=== PATIENT | male | born 1990 | race American Indian/Alaskan Native ===

== ENCOUNTER 2018-11-09 23:53 | Inpatient (IN) | payer MEDICAID ==
--- NOTE | 2018-11-10 01:58 | ED PDOC ---
HPI: Back Chief Complaint (Provider): Flank Pain, Bilateral History Per: Patient, EMS History/Exam Limitations: no limitations Onset/Duration Of Symptoms: Days, Waxing/Waning Current Symptoms Are (Timing): Still Present Quality Of Discomfort: Pressure (This type 2 diabetic patient presents to the ED via EMS this evening complaining of bilateral flank pain, without nausea or vomiting. Pt was seen at [facility] yesterday for the same symptoms and diagnostically had a CT Abdomen and Pelvis without contrast which indicated only that there is "mild puffiness to his renal collection system." The patient was discharged following a clean UA. The patient indicated that his pain level was low earlier today, and then increased later in the evening. The patient continues to denie NVD and fever as well as urinary symptoms including gross hematuria. ), "Pain" <Paul Childers - Last Filed: 11/10/18 05:18> <Pérez Chanel - Last Filed: 11/10/18 06:21> Time Seen by Provider: 11/10/18 00:00 Chief Complaint (Nursing): Back Pain Past Medical History Reviewed: Historical Data, Nursing Documentation, Vital Signs Vital Signs: Last Vital Signs Temp 97.3 F L 11/09/18 23:56 Pulse 93 H 11/09/18 23:56 Resp 18 11/09/18 23:56 BP 131/91 H 11/09/18 23:56 Pulse Ox 100 11/09/18 23:56 - Medical History PMH: Arthritis (KNEE, ANKLE), Diabetes (Type 1), Fractures (R shoulder 2015), HTN Denies: Chronic Kidney Disease - Family History Family History: States: Diabetes (Grandmother on Fathers side) - Immunization History Hx Tetanus Toxoid Vaccination: No Hx Influenza Vaccination: No Hx Pneumococcal Vaccination: No <Paul Childers - Last Filed: 11/10/18 05:18> Vital Signs: Last Vital Signs Temp 97.3 F L 11/09/18 23:56 Pulse 93 H 11/09/18 23:56 Resp 18 11/09/18 23:56 BP 131/91 H 11/09/18 23:56 Pulse Ox 100 11/10/18 02:03 <Pérez Chanel - Last Filed: 11/10/18 06:21> - Home Medications Home Medications: Ambulatory Orders Medication Instructions Recorded Blood Sugar Diagnostic [Accu-Chek 1 each MC DAILY #100 strip 05/26/18 Guide Test Strip] Insulin Aspart, Recombinant 8 unit SQ WM 05/31/18 [Novolog] Acetaminophen [Tylenol 325mg tab] 650 mg PO Q6 PRN tab 09/21/18 Aluminum Hydroxide/Magnesium H 30 ml PO TID PRN udc 09/21/18 [Maalox 30 ml] Dextrose 50% [Dextrose 50% Inj] 0 ml IV STAT PRN syr 09/21/18 Enoxaparin [Lovenox] 40 mg SC DAILY syr 09/21/18 Insulin Glargine, Recombina 30 unit SC HS unit 09/21/18 [Lantus] Insulin Human Regular [Novolin R] 0 unit SC ACHS unit 09/21/18 Ketorolac [Toradol] 30 mg IVP Q6 PRN vial 09/21/18 Lisinopril [Zestril] 40 mg PO DAILY tab 09/21/18 Metoprolol Tartrate [Lopressor] 50 mg PO BID tab 09/21/18 Pantoprazole [Protonix EC Tab] 40 mg PO DAILY ect 09/21/18 Saccharomyces Boulardi [Florastor] 250 mg PO BID cap 09/21/18 Vancomycin [Vancomycin Inj] 1 gm IVPB Q24H vial 09/21/18 amLODIPine [Norvasc] 10 mg PO DAILY tab 09/21/18 cloNIDine [Catapres] 0.1 mg PO BID tab 09/21/18 Ibuprofen [Motrin] 600 mg PO Q6 PRN #20 tab 11/08/18 - Allergies Allergies/Adverse Reactions: Allergies Allergy/AdvReac Type Severity Reaction Status Date / Time pollen extracts Allergy Intermediate ITCHING Verified 09/10/18 08:05 Review of Systems ROS Statement: Except As Marked, All Systems Reviewed And Found Negative Musculoskeletal: Positive for: Back Pain <Paul Childers - Last Filed: 11/10/18 05:18> Physical Exam - Reviewed Nursing Documentation Reviewed: Yes Vital Signs Reviewed: Yes - Physical Exam Appears: Positive for: Well, Non-toxic, Uncomfortable. Negative for: No Acute Distress Head Exam: Positive for: ATRAUMATIC, NORMAL INSPECTION Skin: Positive for: Normal Color, Warm, Dry. Negative for: Diaphoresis, Pallor, Rash Eye Exam: Positive for: Normal appearance. Negative for: Periorbital swelling, Periorbital tenderness Neck: Positive for: Normal, Supple Cardiovascular/Chest: Positive for: Regular Rate, Rhythm, Chest Non Tender. Negative for: Bradycardia, Tachycardia Respiratory: Positive for: Normal Breath Sounds. Negative for: Accessory Muscle Use, Crackles, Rales, Rhonchi, Stridor, Wheezing, Respiratory Distress Pulses-Carotid (L): 2+ Pulses-Carotid (R): 2+ Pulses-Radial (L): 2+ Pulses-Radial (R): 2+ Gastrointestinal/Abdominal: Positive for: Normal Exam, Bowel Sounds, Soft. Negative for: Tenderness, Distended, Guarding, Rebound Back: Positive for: Normal Inspection, L CVA Tenderness, R CVA Tenderness. Negative for: Vertebral Tenderness, Muscle Spasm <Paul Childers - Last Filed: 11/10/18 05:18> - Laboratory Results Result Diagrams: 11/10/18 04:20 11/10/18 04:20 - ECG O2 Sat by Pulse Oximetry: 100 <Paul Childers - Last Filed: 11/10/18 05:18> - Laboratory Results Result Diagrams: 11/10/18 04:20 11/10/18 04:20 Lab Results: Total Bilirubin 0.2 mg/dl (0.2-1.3) 11/10/18 04:20 AST 27 U/L (17-59) 11/10/18 04:20 ALT 26 U/L (21-72) 11/10/18 04:20 Alkaline Phosphatase 78 U/L (38-126) 11/10/18 04:20 Total Protein 6.8 G/DL (6.3-8.2) 11/10/18 04:20 Albumin 2.7 g/dL (3.5-5.0) L 11/10/18 04:20 Globulin 4.1 gm/dL (2.2-3.9) H 11/10/18 04:20 Albumin/Globulin Ratio 0.7 (1.0-2.1) L 11/10/18 04:20 Lipase 38 U/L (23-300) 11/10/18 04:20 Urine Color Yellow (YELLOW) 11/10/18 02:04 Urine Clarity Cloudy (Clear) 11/10/18 02:04 Urine pH 6.0 (5.0-8.0) 11/10/18 02:04 Ur Specific [place] 1.018 (1.003-1.030) 11/10/18 02:04 Urine Protein >=500 mg/dL (NEGATIVE) 11/10/18 02:04 Urine Glucose (UA) >=500 mg/dL (NEGATIVE) 11/10/18 02:04 Urine Ketones Negative mg/dL (NEGATIVE) 11/10/18 02:04 Urine Blood Small (NEGATIVE) 11/10/18 02:04 Urine Nitrate Negative (NEGATIVE) 11/10/18 02:04 Urine Bilirubin Negative (NEGATIVE) 11/10/18 02:04 Urine Urobilinogen 0.2-1.0 mg/dL (0.2-1.0) 11/10/18 02:04 Ur Leukocyte Esterase Neg [place]/uL (Negative) 11/10/18 02:04 Urine RBC (Auto) 15 /hpf (0-3) H 11/10/18 02:04 Urine Microscopic WBC 3 /hpf (0-5) 11/10/18 02:04 Ur Squamous Epith Cells 1 /hpf (0-5) 11/10/18 02:04 Hyaline Casts >20 /hpf (0-2) H 11/10/18 02:04 <Pérez Chanel - Last Filed: 11/10/18 06:21> Medical Decision Making Medical Decision Making: I: R/O Renal lithio passage vx UTI P:Control pain with toradol and apap UA to evaluate hematuria CBC and CMP Elevated creatinine, D1M and CT indicating acending UT infection. 0520: care will be continued by Dr Alfonso <Paul Childers - Last Filed: 11/10/18 05:18> Medical Decision Makin CT Abdomen Pelvis FINDINGS: The visualized lung bases are unremarkable. Normal unenhanced liver. Normal gallbladder and extrahepatic biliary system. Normal unenhanced spleen. Normal pancreas. Normal bilateral adrenal glands. Mild fullness of the collecting systems. Normal size of the right kidney. There is no right renal mass. There are no right renal calculi. There is no right hydronephrosis. Normal visualized right ureter. Normal size of the left kidney. There is no left renal mass. There are no left renal calculi. There is no left hydronephrosis. Normal visualized left ureter. Normal visualized stomach. Normal small intestine. Uncomplicated diverticulosis with moderate amount of fecal residue in the colon. The appendix is visualized and appears normal. There is no demonstrated peritoneal fluid. Normal abdominal aorta. Normal inferior vena cava. Normal retroperitoneum. Mild diffuse thickening of the urinary bladder. There is no pelvic mass lesion or lymphadenopathy. There is no pelvic fluid. Normal abdominal wall. Normal osseous structures. IMPRESSION: Thickened bladder, probably cystitis. Bilateral fullness of the collecting systems, suspicious for an ascending urinary tract infection. No urolithiasis is seen. 06:08 PAtient is a poorly controlled diabetic and homeless with limited access to followup. CT and physical exam concerning for pyelonephritis, patient has potential to become septic if untreated/lost to followup/does not fill prescription Discussed patient case with Dr. Wahl. Patient will be admitted under his care. <Pérez Chanel - Last Filed: 11/10/18 06:21> Disposition <Paul Childers - Last Filed: 11/10/18 05:18> - Patient ED Disposition Is Patient to be Admitted: Yes Discussed With DrAlaina: Aden Wahl Doctor Will See Patient In The: Hospital Counseled Patient/Family Regarding: Studies Performed, Diagnosis - Disposition Disposition Time: 06:08 <Pérez Chanel - Last Filed: 11/10/18 06:21> - Clinical Impression Clinical Impression: Pyelonephritis - Disposition Condition: FAIR
[2018-11-10] MEDS ORDERED: Insulin Regular 100 units/ml SC STA (02:06)
[2018-11-10 02:31] LABS: SQUAMOUS EPITHIAL 1 /hpf (0-5); URINE BILIRUBIN NEGATIVE (NEGATIVE); URINE BLOOD SMALL (NEGATIVE); URINE CLARITY CLOUDY (Clear); URINE COLOR YELLOW (YELLOW); URINE GLUCOSE (UA) >=500 mg/dL (NEGATIVE); URINE LEUKOCYTE ESTERASE NEG Leu/uL (Negative); URINE PROTEIN >=500 mg/dL (NEGATIVE); URINE UROBILINOGEN 0.2-1.0 mg/dL (0.2-1.0)
[2018-11-10 02:38] LABS: URINE HYALINE CAST >20 /hpf (0-2)
[2018-11-10 04:41] LABS: BASO # 0.1 K/uL (0.0-0.2); BASO % 0.9 % (0.0-2.0); EOS # 0.2 K/uL (0.0-0.7); EOS % 3.3 % (0.0-4.0); HEMOGLOBIN 9.1 g/dL (12.0-18.0); LYMPH # 1.2 K/uL (1.0-4.3); LYMPH % 22.6 % (20.0-40.0); MEAN CELL VOLUME 83.9 fl (80.0-94.0); MEAN CORPUSCULAR HEMOGLOBIN 27.6 pg (27.0-31.0); MEAN CORPUSCULAR HGB CONC 32.9 g/dL (33.0-37.0); MONO # 0.7 K/uL (0.0-0.8); MONO % 12.3 % (0.0-10.0); NEUT # 3.3 K/uL (1.8-7.0); NEUT % 60.9 % (50.0-75.0); RBC 3.29 Mil/uL (4.40-5.90); RED CELL DISTRIBUTION WIDTH 15.8 % (11.5-14.5); WHITE BLOOD COUNT 5.4 K/uL (4.8-10.8)
[2018-11-10 04:46] LABS: ALB/GLOB RATIO 0.7 (1.0-2.1); ALBUMIN 2.7 g/dL (3.5-5.0); CALCIUM 8.3 mg/dL (8.4-10.2)
[2018-11-10] MEDS ORDERED: levoFLOXacin 750 mg in D5W 150 ML BAG IVPB STA (05:17)
[2018-11-10] MEDS ORDERED: Sodium Chloride 0.9% 1,000 ML IV STA ×2 (05:17→05:30)
[2018-11-10] MEDS ORDERED: levoFLOXacin 750 mg in D5W 750 MG/150 ML BAG IVPB STA (05:24)
[2018-11-10] MEDS ORDERED: levoFLOXacin 750 mg in D5W 750 MG/150 ML BAG IVPB ONE (05:41)
[2018-11-10 06:01] LABS: VENOUS BLOOD GAS BASE EXCESS -1.3 mmol/L (0.0-2.0); VENOUS BLOOD GAS PCO2 46 mmHg (40-60); VENOUS BLOOD GAS PO2 46 mm/Hg (30-55); VENOUS BLOOD PH 7.34 (7.32-7.43)
[2018-11-10] MEDS ORDERED: Metoprolol 1 mg/ml Inj IVP STA (06:47)
--- NOTE | 2018-11-10 09:49 | CP.PCM.HP ---
History of Present Illness - History of Present Illness History of Present Illness: 28 YR OLD MALE WITH HX OF DM,HTN,ARTHRITIS,CHARCOT R FOOT AND L FLANK PAIN WHO IS ADMITTED VIA THE ER BECAUSE OF SEVERE L FLANK PAIN AND UNCONTROLLED HTN.HE WAS AT [facility],TREATED AND D/ALEX,ONLY TO RETURN TO [facility]. FAMILY HX-GRANDPARENTS WERE DIABETIC AND HYPERTENSIVE SOC [id number]-RYN-[id number]/ETOH/DRUGS HOMELESS Present on Admission - Present on Admission Any Indicators Present on Admission: No Past Patient History - Infectious Disease Hx of Infectious Diseases: None - Tetanus Immunizations Tetanus Immunization: Unknown - Past Medical History & Family History Past Medical History?: Yes - Past Social History Smoking Status: Light Smoker < 10 Cigarettes Daily - CARDIAC Hx Hypertension: Yes - PULMONARY Hx Respiratory Disorders: No - NEUROLOGICAL Hx Neurological Disorder: No - HEENT Hx HEENT Problems: No - RENAL Hx Chronic Kidney Disease: No - ENDOCRINE/METABOLIC Hx Endocrine Disorders: Yes (SEE COMMENT) - HEMATOLOGICAL/ONCOLOGICAL Hx Blood Disorders: No - INTEGUMENTARY Hx Dermatological Problems: Yes Other/Comment: LEFT LEG - OSTEOMYLITIS - MUSCULOSKELETAL/RHEUMATOLOGICAL Hx Arthritis: Yes (KNEE, ANKLE) Hx Fractures: Yes (R shoulder 2014) - GASTROINTESTINAL Hx Gastrointestinal Disorders: No - GENITOURINARY/GYNECOLOGICAL Hx Genitourinary Disorders: No - PSYCHIATRIC Hx Psychophysiologic Disorder: Yes Hx Substance Use: Yes (marijuana user , smokes marijuana on weekends) - SURGICAL HISTORY Other/Comment: Left foot surgery with graft. L foot debridement - ANESTHESIA Hx Anesthesia: Yes Hx Anesthesia Reactions: No Hx Malignant Hyperthermia: No Meds Allergies/Adverse Reactions: Allergies Allergy/AdvReac Type Severity Reaction Status Date / Time pollen extracts Allergy Intermediate ITCHING Verified 09/10/18 08:05 Physical Exam - Constitutional Appears: Well, In Acute Distress, Chronically Ill - Head Exam Head Exam: ATRAUMATIC, NORMAL INSPECTION, NORMOCEPHALIC - Eye Exam Eye Exam: EOMI, Normal appearance, PERRL Pupil Exam: NORMAL ACCOMODATION, PERRL - ENT Exam ENT Exam: Mucous Membranes Moist, Normal Exam - Neck Exam Neck exam: Positive for: Normal Inspection - Respiratory Exam Respiratory Exam: Clear to Auscultation Bilateral, NORMAL BREATHING PATTERN - Cardiovascular Exam Cardiovascular Exam: REGULAR RHYTHM - GI/Abdominal Exam GI & Abdominal Exam: Normal Bowel Sounds, Soft, Tenderness Additional comments: BILATERAL FLANKS - Rectal Exam Rectal Exam: NORMAL INSPECTION - Extremities Exam Extremities exam: Positive for: normal inspection, tenderness Additional comments: R FOOT WITH ULCER ARTHRITIUS CHANGES OPF FINGERS - Back Exam Back exam: NORMAL INSPECTION - Neurological Exam Neurological exam: Alert, CN II-XII Intact, Normal Gait, Oriented x3, Reflexes Normal - Psychiatric Exam Psychiatric exam: Normal Affect, Normal Mood - Skin Skin Exam: Dry, Intact, Normal Color, Warm Results - Vital Signs Recent Vital Signs: Last Vital Signs Temp 97 F L 11/10/18 08:17 Pulse 89 11/10/18 08:17 Resp 18 11/10/18 08:17 BP 166/89 H 11/10/18 08:17 Pulse Ox 100 11/10/18 08:17 - Labs Result Diagrams: 11/10/18 04:20 11/10/18 04:20 Labs: Laboratory Results - last 24 hr 11/10/18 11/10/18 11/10/18 02:02 02:04 03:07 WBC RBC Hgb Hct MCV MCH MCHC RDW Plt Count MPV Neut % (Auto) Lymph % (Auto) [place] % (Auto) Eos % (Auto) Baso % (Auto) Neut # (Auto) Lymph # (Auto) [place] # (Auto) Eos # (Auto) Baso # (Auto) pO2 VBG pH VBG pCO2 VBG HCO3 VBG Total CO2 VBG O2 Sat (Calc) VBG Base Excess VBG Potassium Glucose Lactate FiO2 Sodium Potassium Chloride Carbon Dioxide Anion Gap BUN Creatinine Est GFR ( Amer) Est GFR (Non-Af Amer) POC Glucose (mg/dL) 250 H 139 H Random Glucose Calcium Total Bilirubin AST ALT Alkaline Phosphatase Total Protein Albumin Globulin Albumin/Globulin Ratio Lipase Venous Blood Potassium Urine Color Yellow Urine Clarity Cloudy Urine pH 6.0 Ur Specific [place] 1.018 Urine Protein >=500 Urine Glucose (UA) >=500 Urine Ketones Negative Urine Blood Small Urine Nitrate Negative Urine Bilirubin Negative Urine Urobilinogen 0.2-1.0 Ur Leukocyte Esterase Neg Urine RBC (Auto) 15 H Urine Microscopic WBC 3 Ur Squamous Epith Cells 1 Hyaline Casts >20 H 11/10/18 11/10/18 11/10/18 04:20 04:20 05:50 WBC 5.4 RBC 3.29 L Hgb 9.1 L Hct 27.6 L MCV 83.9 MCH 27.6 MCHC 32.9 L RDW 15.8 H Plt Count 181 MPV 8.0 Neut % (Auto) 60.9 Lymph % (Auto) 22.6 [place] % (Auto) 12.3 H Eos % (Auto) 3.3 Baso % (Auto) 0.9 Neut # (Auto) 3.3 Lymph # (Auto) 1.2 [place] # (Auto) 0.7 Eos # (Auto) 0.2 Baso # (Auto) 0.1 pO2 46 VBG pH 7.34 VBG pCO2 46 VBG HCO3 23.4 VBG Total CO2 26.2 VBG O2 Sat (Calc) 88.8 H VBG Base Excess -1.3 L VBG Potassium 3.6 Glucose 115 H Lactate 0.7 FiO2 21.0 Sodium 140 138.0 Potassium 3.8 Chloride 109 H 109.0 H Carbon Dioxide 23 Anion Gap 12 BUN 31 H Creatinine 3.4 H Est GFR ( Amer) 26 Est GFR (Non-Af Amer) 22 POC Glucose (mg/dL) Random Glucose 104 Calcium 8.3 L Total Bilirubin 0.2 AST 27 ALT 26 Alkaline Phosphatase 78 Total Protein 6.8 Albumin 2.7 L Globulin 4.1 H Albumin/Globulin Ratio 0.7 L Lipase 38 Venous Blood Potassium 3.6 Urine Color Urine Clarity Urine pH Ur Specific [place] Urine Protein Urine Glucose (UA) Urine Ketones Urine Blood Urine Nitrate Urine Bilirubin Urine Urobilinogen Ur Leukocyte Esterase Urine RBC (Auto) Urine Microscopic WBC Ur Squamous Epith Cells Hyaline Casts 11/10/18 08:14 WBC RBC Hgb Hct MCV MCH MCHC RDW Plt Count MPV Neut % (Auto) Lymph % (Auto) [place] % (Auto) Eos % (Auto) Baso % (Auto) Neut # (Auto) Lymph # (Auto) [place] # (Auto) Eos # (Auto) Baso # (Auto) pO2 VBG pH VBG pCO2 VBG HCO3 VBG Total CO2 VBG O2 Sat (Calc) VBG Base Excess VBG Potassium Glucose Lactate FiO2 Sodium Potassium Chloride Carbon Dioxide Anion Gap BUN Creatinine Est GFR ( Amer) Est GFR (Non-Af Amer) POC Glucose (mg/dL) 144 H Random Glucose Calcium Total Bilirubin AST ALT Alkaline Phosphatase Total Protein Albumin Globulin Albumin/Globulin Ratio Lipase Venous Blood Potassium Urine Color Urine Clarity Urine pH Ur Specific [place] Urine Protein Urine Glucose (UA) Urine Ketones Urine Blood Urine Nitrate Urine Bilirubin Urine Urobilinogen Ur Leukocyte Esterase Urine RBC (Auto) Urine Microscopic WBC Ur Squamous Epith Cells Hyaline Casts Assessment & Plan - Assessment and Plan (Free Text) Assessment: ACUTE PYELONEPHRITIS ACUTE KIDNEY INJURY UNCONTROLLED HTN DM TYPE 2 ARTHRITIS DIABETIC FOOT ULCER CHARANNI BULL Plan: SEE ORDERS - Date & Time Date: 11/10/18 Time: 09:53
[2018-11-10] MEDS: levoFLOXacin 500 mg in D5W 500 MG/100 ML BAG IVPB SCH (10:00)
[2018-11-10] MEDS ORDERED: Enoxaparin 30 mg Syringe SC SCH (10:00)
[2018-11-10 10:46] LABS: BASO % 0.8 % (0.0-2.0); EOS # 0.3 K/uL (0.0-0.7); EOS % 5.4 % (0.0-4.0); HEMOGLOBIN 8.5 g/dL (12.0-18.0); LYMPH # 1.3 K/uL (1.0-4.3); LYMPH % 27.2 % (20.0-40.0); MEAN CELL VOLUME 82.7 fl (80.0-94.0); MEAN CORPUSCULAR HEMOGLOBIN 27.9 pg (27.0-31.0); MEAN CORPUSCULAR HGB CONC 33.8 g/dL (33.0-37.0); MEAN PLATELET VOLUME 7.9 fl (7.2-11.7); MONO # 0.8 K/uL (0.0-0.8); MONO % 16.9 % (0.0-10.0); NEUT # 2.3 K/uL (1.8-7.0); NEUT % 49.7 % (50.0-75.0); NRBC % 0.2 % (0.0-0.0); RBC 3.06 Mil/uL (4.40-5.90); RED CELL DISTRIBUTION WIDTH 15.8 % (11.5-14.5); WHITE BLOOD COUNT 4.6 K/uL (4.8-10.8)
--- NOTE | 2018-11-10 11:40 | CT ---
Date of service: 11/10/2018 PROCEDURE: CT Abdomen and Pelvis without intravenous contrast HISTORY: r/o stones and/or hydro COMPARISON: None. TECHNIQUE: Unenhanced. Neither IV nor oral contrast administered Radiation dose: Total exam DLP = inf_radiation_dlp mGy-cm. This CT exam was performed using one or more of the following dose reduction techniques: Automated exposure control, adjustment of the mA and/or kV according to patient size, and/or use of iterative reconstruction technique. FINDINGS: LOWER THORAX: Unremarkable. LIVER: Unremarkable. No gross lesion or ductal dilatation. GALLBLADDER AND BILE DUCTS: Unremarkable. PANCREAS: Unremarkable. No gross lesion or ductal dilatation. SPLEEN: Unremarkable. ADRENALS: Unremarkable. No mass. KIDNEYS AND URETERS: Unremarkable. No hydronephrosis. No solid mass. No evidence of calculus disease, hydronephrosis or hydroureter. VASCULATURE: Unremarkable. No aortic aneurysm. No atherosclerotic calcification or mural plaque present. BOWEL: Constipation without fecal impaction or obstruction. APPENDIX: Unremarkable. Normal appendix. PERITONEUM: Unremarkable. No free fluid. No free air. LYMPH NODES: Unremarkable. No enlarged lymph nodes. BLADDER: Diffuse bladder wall thickening consistent with cystitis. No focal mural or intrinsic abnormalities. REPRODUCTIVE: Unremarkable. BONES: No acute fracture. OTHER FINDINGS: None. IMPRESSION: Mild-moderate cystitis. Otherwise unremarkable study. Concordant results (preliminary interpretation) provided by [employer]. Procedure Completed: 04:20. Preliminary Report: Interpreted and electronically signed: 05:00. Final Interpretation: 11:36.
[2018-11-10 12:27] VITALS: BMI 21.7
--- NOTE | 2018-11-10 12:47 | CP.PCM.CON ---
History of Present Illness - History of Present Illness History of Present Illness: 28 y/o male with Hx/o IDDM. HTN ,CKD was admitted because of Lt flank pain. Renal consult is requested because of worsening of his renal function. Serum creat. is now 3.4 from baseline of 2.0. Pt denied fever ,chills or dysuria. A CT scan of abdomen was done which did not renal calculi or other abnormality. Past Patient History - Infectious Disease Hx of Infectious Diseases: None - Tetanus Immunizations Tetanus Immunization: Unknown - Past Medical History & Family History Past Medical History?: Yes - Past Social History Smoking Status: Light Smoker < 10 Cigarettes Daily - CARDIAC Hx Hypertension: Yes - PULMONARY Hx Respiratory Disorders: No - NEUROLOGICAL Hx Neurological Disorder: No - HEENT Hx HEENT Problems: No - RENAL Hx Chronic Kidney Disease: Yes - ENDOCRINE/METABOLIC Hx Endocrine Disorders: Yes (SEE COMMENT) - HEMATOLOGICAL/ONCOLOGICAL Hx Blood Disorders: No - INTEGUMENTARY Hx Dermatological Problems: Yes Other/Comment: LEFT LEG - OSTEOMYLITIS - MUSCULOSKELETAL/RHEUMATOLOGICAL Hx Arthritis: Yes (KNEE, ANKLE) Hx Fractures: Yes (R shoulder 2014) - GASTROINTESTINAL Hx Gastrointestinal Disorders: No - GENITOURINARY/GYNECOLOGICAL Hx Genitourinary Disorders: No - PSYCHIATRIC Hx Psychophysiologic Disorder: Yes Hx Substance Use: Yes (marijuana user , smokes marijuana on weekends) - SURGICAL HISTORY Other/Comment: Left foot surgery with graft. L foot debridement - ANESTHESIA Hx Anesthesia: Yes Hx Anesthesia Reactions: No Hx Malignant Hyperthermia: No Meds Allergies/Adverse Reactions: Allergies Allergy/AdvReac Type Severity Reaction Status Date / Time pollen extracts Allergy Intermediate ITCHING Verified 09/10/18 08:05 - Medications Medications: Current Medications Acetaminophen (Tylenol 325mg Tab) 650 mg PO Q4 PRN PRN Reason: Fever >100.4 F Amlodipine Besylate (Norvasc) 10 mg PO DAILY [facility]ATI Clonidine HCl (Catapres) 0.1 mg PO BID TATI Enoxaparin Sodium (Lovenox) 30 mg SC DAILY TATI; Protocol Sodium Chloride (Sodium Chloride 0.45%) 1,000 mls @ 60 mls/hr IV .[id number] TATI Stop: 11/11/18 09:41 Levofloxacin/Dextrose (Levaquin 500mg) 500 mg in 100 mls @ 100 mls/hr IVPB DAILY TATI; Protocol Insulin Detemir (Levemir) 30 units SC HS [facility] Insulin Human Lispro (Humalog) 8 units SC WM [facility] Ketorolac Tromethamine (Toradol) 30 mg IVP Q6 PRN PRN Reason: Pain, moderate (4-7) Lisinopril (Zestril) 40 mg PO DAILY [facility] Metoprolol Tartrate (Lopressor) 50 mg PO BID [facility] Saccharomyces Boulardii (Florastor) 250 mg PO BID [facility] Physical Exam - Constitutional Appears: Non-toxic - Head Exam Head Exam: ATRAUMATIC, NORMOCEPHALIC - Eye Exam Additional comments: Conjunctiva pale ,sclera anicteric - ENT Exam ENT Exam: Mucous Membranes Moist - Neck Exam Additional comments: No jugular venous distension - Respiratory Exam Respiratory Exam: NORMAL BREATHING PATTERN Additional comments: Lungs clear - Cardiovascular Exam Cardiovascular Exam: Diastolic murmur, REGULAR RHYTHM - GI/Abdominal Exam Additional comments: Abdomen is soft & nontender Tenderness noted over Lt back/ flank area No tenderness on Rt flank - Extremities Exam Additional comments: Lt foot is dressed. No edema or cyanosis. Results - Vital Signs Recent Vital Signs: Last Vital Signs Temp 97 F L 11/10/18 08:17 Pulse 89 11/10/18 08:17 Resp 18 11/10/18 08:17 BP 166/89 H 11/10/18 08:17 Pulse Ox 100 11/10/18 08:17 - Labs Result Diagrams: 11/10/18 10:00 11/10/18 04:20 Labs: Laboratory Results - last 24 hr 11/10/18 11/10/18 11/10/18 02:02 02:04 03:07 WBC RBC Hgb Hct MCV MCH MCHC RDW Plt Count MPV Neut % (Auto) Lymph % (Auto) [place] % (Auto) Eos % (Auto) Baso % (Auto) Neut # (Auto) Lymph # (Auto) [place] # (Auto) Eos # (Auto) Baso # (Auto) pO2 VBG pH VBG pCO2 VBG HCO3 VBG Total CO2 VBG O2 Sat (Calc) VBG Base Excess VBG Potassium Glucose Lactate FiO2 Sodium Potassium Chloride Carbon Dioxide Anion Gap BUN Creatinine Est GFR ( Amer) Est GFR (Non-Af Amer) POC Glucose (mg/dL) 250 H 139 H Random Glucose Calcium Total Bilirubin AST ALT Alkaline Phosphatase Total Protein Albumin Globulin Albumin/Globulin Ratio Lipase Venous Blood Potassium Urine Color Yellow Urine Clarity Cloudy Urine pH 6.0 Ur Specific [place] 1.018 Urine Protein >=500 Urine Glucose (UA) >=500 Urine Ketones Negative Urine Blood Small Urine Nitrate Negative Urine Bilirubin Negative Urine Urobilinogen 0.2-1.0 Ur Leukocyte Esterase Neg Urine RBC (Auto) 15 H Urine Microscopic WBC 3 Ur Squamous Epith Cells 1 Hyaline Casts >20 H 11/10/18 11/10/18 11/10/18 04:20 04:20 05:50 WBC 5.4 RBC 3.29 L Hgb 9.1 L Hct 27.6 L MCV 83.9 MCH 27.6 MCHC 32.9 L RDW 15.8 H Plt Count 181 MPV 8.0 Neut % (Auto) 60.9 Lymph % (Auto) 22.6 [place] % (Auto) 12.3 H Eos % (Auto) 3.3 Baso % (Auto) 0.9 Neut # (Auto) 3.3 Lymph # (Auto) 1.2 [place] # (Auto) 0.7 Eos # (Auto) 0.2 Baso # (Auto) 0.1 pO2 46 VBG pH 7.34 VBG pCO2 46 VBG HCO3 23.4 VBG Total CO2 26.2 VBG O2 Sat (Calc) 88.8 H VBG Base Excess -1.3 L VBG Potassium 3.6 Glucose 115 H Lactate 0.7 FiO2 21.0 Sodium 140 138.0 Potassium 3.8 Chloride 109 H 109.0 H Carbon Dioxide 23 Anion Gap 12 BUN 31 H Creatinine 3.4 H Est GFR ( Amer) 26 Est GFR (Non-Af Amer) 22 POC Glucose (mg/dL) Random Glucose 104 Calcium 8.3 L Total Bilirubin 0.2 AST 27 ALT 26 Alkaline Phosphatase 78 Total Protein 6.8 Albumin 2.7 L Globulin 4.1 H Albumin/Globulin Ratio 0.7 L Lipase 38 Venous Blood Potassium 3.6 Urine Color Urine Clarity Urine pH Ur Specific [place] Urine Protein Urine Glucose (UA) Urine Ketones Urine Blood Urine Nitrate Urine Bilirubin Urine Urobilinogen Ur Leukocyte Esterase Urine RBC (Auto) Urine Microscopic WBC Ur Squamous Epith Cells Hyaline Casts 11/10/18 11/10/18 08:14 10:00 WBC 4.6 L RBC 3.06 L Hgb 8.5 L Hct 25.3 L MCV 82.7 MCH 27.9 MCHC 33.8 RDW 15.8 H Plt Count 179 MPV 7.9 Neut % (Auto) 49.7 L Lymph % (Auto) 27.2 [place] % (Auto) 16.9 H Eos % (Auto) 5.4 H Baso % (Auto) 0.8 Neut # (Auto) 2.3 Lymph # (Auto) 1.3 [place] # (Auto) 0.8 Eos # (Auto) 0.3 Baso # (Auto) 0.0 pO2 VBG pH VBG pCO2 VBG HCO3 VBG Total CO2 VBG O2 Sat (Calc) VBG Base Excess VBG Potassium Glucose Lactate FiO2 Sodium Potassium Chloride Carbon Dioxide Anion Gap BUN Creatinine Est GFR ( Amer) Est GFR (Non-Af Amer) POC Glucose (mg/dL) 144 H Random Glucose Calcium Total Bilirubin AST ALT Alkaline Phosphatase Total Protein Albumin Globulin Albumin/Globulin Ratio Lipase Venous Blood Potassium Urine Color Urine Clarity Urine pH Ur Specific [place] Urine Protein Urine Glucose (UA) Urine Ketones Urine Blood Urine Nitrate Urine Bilirubin Urine Urobilinogen Ur Leukocyte Esterase Urine RBC (Auto) Urine Microscopic WBC Ur Squamous Epith Cells Hyaline Casts Assessment & Plan - Assessment and Plan (Free Text) Assessment: Acute on chronic renal failure. Etiology unclear at this time Noted to have heavy proteinuria on UA. May represent diabetic nephropathy. In the past all serologies were negatine. Lt flank pain. R/o Pyelo. Clinically appears stable ? lumbar muscle spasm Plan: Renal US Urine Protein/ Creat Agree with holding Lisinopril If creat continues to rise adjust Levofloxacin dose for GFR.
[2018-11-10] MEDS: Saccharomyces Boulardi 250 mg Cap PO SCH ×2 (12:48→19:13)
[2018-11-10] MEDS: Insulin Lispro (humaLOG) 100 Units/ml Inj SC SCH ×2 (12:49→19:13)
[2018-11-10] MEDS: Sodium Chloride 0.45% 1,000 ML IV SCH (12:50)
--- NOTE | 2018-11-10 15:07 | CP.PCM.CON ---
History of Present Illness - History of Present Illness History of Present Illness: Podiatry Consult Note: Dr. Freedman 28 year old male patient, with PMHx of DMI, HTN, seen and evaluated for b/l lower extremity ulcerations. Patient reports having the ulcerations for several months and was treated at [facility]. He states that he was transferred to [facility] where he was on 6 weeks of IV antibiotics. He has remained non- weightbearing to the L lower extremity at this time secondary to ulcerations and charcot deformity. He denies any new pedal complaints. Denies nausea/vomiting/fever. PMHx: as above ALL: NKDA Review of Systems - Constitutional Constitutional: As Per HPI Past Patient History - Infectious Disease Hx of Infectious Diseases: None - Tetanus Immunizations Tetanus Immunization: Unknown - Past Medical History & Family History Past Medical History?: Yes - Past Social History Smoking Status: Light Smoker < 10 Cigarettes Daily - CARDIAC Hx Hypertension: Yes - PULMONARY Hx Respiratory Disorders: No - NEUROLOGICAL Hx Neurological Disorder: No - HEENT Hx HEENT Problems: No - RENAL Hx Chronic Kidney Disease: Yes - ENDOCRINE/METABOLIC Hx Endocrine Disorders: Yes (SEE COMMENT) - HEMATOLOGICAL/ONCOLOGICAL Hx Blood Disorders: No - INTEGUMENTARY Hx Dermatological Problems: Yes Other/Comment: LEFT LEG - OSTEOMYLITIS - MUSCULOSKELETAL/RHEUMATOLOGICAL Hx Arthritis: Yes (KNEE, ANKLE) Hx Fractures: Yes ( shoulder 2014) - GASTROINTESTINAL Hx Gastrointestinal Disorders: No - GENITOURINARY/GYNECOLOGICAL Hx Genitourinary Disorders: No - PSYCHIATRIC Hx Psychophysiologic Disorder: Yes Hx Substance Use: Yes (marijuana user , smokes marijuana on weekends) - SURGICAL HISTORY Other/Comment: Left foot surgery with graft. L foot debridement - ANESTHESIA Hx Anesthesia: Yes Hx Anesthesia Reactions: No Hx Malignant Hyperthermia: No Meds Allergies/Adverse Reactions: Allergies Allergy/AdvReac Type Severity Reaction Status Date / Time pollen extracts Allergy Intermediate ITCHING Verified 09/10/18 08:05 - Medications Medications: Current Medications Acetaminophen (Tylenol 325mg Tab) 650 mg PO Q4 PRN PRN Reason: Fever >100.4 F Amlodipine Besylate (Norvasc) 10 mg PO DAILY [facility] Last Admin: 11/10/18 12:50 Dose: 10 mg Clonidine HCl (Catapres) 0.1 mg PO BID [facility] Last Admin: 11/10/18 12:48 Dose: 0.1 mg Enoxaparin Sodium (Lovenox) 30 mg SC DAILY [facility]; Protocol Sodium Chloride (Sodium Chloride 0.45%) 1,000 mls @ 60 mls/hr IV .[id number] [facility] Stop: 11/11/18 09:41 Last Admin: 11/10/18 12:50 Dose: 60 mls/hr Levofloxacin/Dextrose (Levaquin 500mg) 500 mg in 100 mls @ 100 mls/hr IVPB DAILY [facility]; Protocol Insulin Detemir (Levemir) [address] [facility] Insulin Human Lispro (Humalog) [address] [facility] Last Admin: 11/10/18 12:49 Dose: 8 unit Ketorolac Tromethamine (Toradol) 30 mg IVP Q6 PRN PRN Reason: Pain, moderate (4-7) Lisinopril (Zestril) 40 mg PO DAILY [facility] Last Admin: 11/10/18 12:51 Dose: 40 mg Metoprolol Tartrate (Lopressor) 50 mg PO BID [facility] Last Admin: 11/10/18 12:49 Dose: 50 mg Saccharomyces Boulardii (Florastor) 250 mg PO BID [facility] Last Admin: 11/10/18 12:48 Dose: 250 mg Physical Exam - Constitutional Appears: Non-toxic, No Acute Distress - Head Exam Head Exam: ATRAUMATIC - Extremities Exam Additional comments: VASC: DP and PT 2/4, temperature gradient warm to warm to bilateral lower extremity, CFT < 3 seconds, edema noted to the anterior lateral aspect of the left lower extremity ORTHO: MMT is 5/5 in all four compartments, collapsed arch on left secondary to charcot deformity NEURO: gross and protective sensation intact DERM: LLE ulceration appreciated to the 5th metatarsal , approximately 2.0x1.5x.5cm, and lateral malleolus, approximately 2.5x1x.2cm, with mixed fibrous/granular base, mild serous/sanginous drainage appreciated, no purulence expressed at this time. RLE ulceration appreciated to the anterior aspect of the right leg measuring approximately 8cm x3cm x.2 cm, with fibrous base, no drainage at this time, no purulence expressed. Mild erythema appreciated kassandra- wound bilaterally. - Neurological Exam Neurological exam: Alert, Oriented x3 Results - Vital Signs Recent Vital Signs: Last Vital Signs Temp 97 F L 11/10/18 08:17 Pulse 77 11/10/18 12:51 Resp 18 11/10/18 08:17 BP 168/102 H 11/10/18 12:51 Pulse Ox 100 11/10/18 08:17 - Labs Result Diagrams: 11/10/18 10:00 11/10/18 04:20 Labs: Laboratory Results - last 24 hr 11/10/18 11/10/18 11/10/18 02:02 02:04 03:07 WBC RBC Hgb Hct MCV MCH MCHC RDW Plt Count MPV Neut % (Auto) Lymph % (Auto) [place] % (Auto) Eos % (Auto) Baso % (Auto) Neut # (Auto) Lymph # (Auto) [place] # (Auto) Eos # (Auto) Baso # (Auto) pO2 VBG pH VBG pCO2 VBG HCO3 VBG Total CO2 VBG O2 Sat (Calc) VBG Base Excess VBG Potassium Glucose Lactate FiO2 Sodium Potassium Chloride Carbon Dioxide Anion Gap BUN Creatinine Est GFR ( Amer) Est GFR (Non-Af Amer) POC Glucose (mg/dL) 250 H 139 H Random Glucose Calcium Phosphorus Total Bilirubin AST ALT Alkaline Phosphatase Total Protein Albumin Globulin Albumin/Globulin Ratio Lipase Venous Blood Potassium Urine Color Yellow Urine Clarity Cloudy Urine pH 6.0 Ur Specific [place] 1.018 Urine Protein >=500 Urine Glucose (UA) >=500 Urine Ketones Negative Urine Blood Small Urine Nitrate Negative Urine Bilirubin Negative Urine Urobilinogen 0.2-1.0 Ur Leukocyte Esterase Neg Urine RBC (Auto) 15 H Urine Microscopic WBC 3 Ur Squamous Epith Cells 1 Hyaline Casts >20 H 11/10/18 11/10/18 11/10/18 04:20 04:20 05:50 WBC 5.4 RBC 3.29 L Hgb 9.1 L Hct 27.6 L MCV 83.9 MCH 27.6 MCHC 32.9 L RDW 15.8 H Plt Count 181 MPV 8.0 Neut % (Auto) 60.9 Lymph % (Auto) 22.6 [place] % (Auto) 12.3 H Eos % (Auto) 3.3 Baso % (Auto) 0.9 Neut # (Auto) 3.3 Lymph # (Auto) 1.2 [place] # (Auto) 0.7 Eos # (Auto) 0.2 Baso # (Auto) 0.1 pO2 46 VBG pH 7.34 VBG pCO2 46 VBG HCO3 23.4 VBG Total CO2 26.2 VBG O2 Sat (Calc) 88.8 H VBG Base Excess -1.3 L VBG Potassium 3.6 Glucose 115 H Lactate 0.7 FiO2 21.0 Sodium 140 138.0 Potassium 3.8 Chloride 109 H 109.0 H Carbon Dioxide 23 Anion Gap 12 BUN 31 H Creatinine 3.4 H Est GFR ( Amer) 26 Est GFR (Non-Af Amer) 22 POC Glucose (mg/dL) Random Glucose 104 Calcium 8.3 L Phosphorus Total Bilirubin 0.2 AST 27 ALT 26 Alkaline Phosphatase 78 Total Protein 6.8 Albumin 2.7 L Globulin 4.1 H Albumin/Globulin Ratio 0.7 L Lipase 38 Venous Blood Potassium 3.6 Urine Color Urine Clarity Urine pH Ur Specific [place] Urine Protein Urine Glucose (UA) Urine Ketones Urine Blood Urine Nitrate Urine Bilirubin Urine Urobilinogen Ur Leukocyte Esterase Urine RBC (Auto) Urine Microscopic WBC Ur Squamous Epith Cells Hyaline Casts 11/10/18 11/10/18 11/10/18 08:14 10:00 13:06 WBC 4.6 L RBC 3.06 L Hgb 8.5 L Hct 25.3 L MCV 82.7 MCH 27.9 MCHC 33.8 RDW 15.8 H Plt Count 179 MPV 7.9 Neut % (Auto) 49.7 L Lymph % (Auto) 27.2 [place] % (Auto) 16.9 H Eos % (Auto) 5.4 H Baso % (Auto) 0.8 Neut # (Auto) 2.3 Lymph # (Auto) 1.3 [place] # (Auto) 0.8 Eos # (Auto) 0.3 Baso # (Auto) 0.0 pO2 VBG pH VBG pCO2 VBG HCO3 VBG Total CO2 VBG O2 Sat (Calc) VBG Base Excess VBG Potassium Glucose Lactate FiO2 Sodium Potassium Chloride Carbon Dioxide Anion Gap BUN Creatinine Est GFR ( Amer) Est GFR (Non-Af Amer) POC Glucose (mg/dL) 144 H Random Glucose Calcium Phosphorus 4.3 Total Bilirubin AST ALT Alkaline Phosphatase Total Protein Albumin Globulin Albumin/Globulin Ratio Lipase Venous Blood Potassium Urine Color Urine Clarity Urine pH Ur Specific [place] Urine Protein Urine Glucose (UA) Urine Ketones Urine Blood Urine Nitrate Urine Bilirubin Urine Urobilinogen Ur Leukocyte Esterase Urine RBC (Auto) Urine Microscopic WBC Ur Squamous Epith Cells Hyaline Casts 11/10/18 13:07 WBC RBC Hgb Hct MCV MCH MCHC RDW Plt Count MPV Neut % (Auto) Lymph % (Auto) [place] % (Auto) Eos % (Auto) Baso % (Auto) Neut # (Auto) Lymph # (Auto) [place] # (Auto) Eos # (Auto) Baso # (Auto) pO2 VBG pH VBG pCO2 VBG HCO3 VBG Total CO2 VBG O2 Sat (Calc) VBG Base Excess VBG Potassium Glucose Lactate FiO2 Sodium Potassium Chloride Carbon Dioxide Anion Gap BUN Creatinine Est GFR ( Amer) Est GFR (Non-Af Amer) POC Glucose (mg/dL) 292 H Random Glucose Calcium Phosphorus Total Bilirubin AST ALT Alkaline Phosphatase Total Protein Albumin Globulin Albumin/Globulin Ratio Lipase Venous Blood Potassium Urine Color Urine Clarity Urine pH Ur Specific [place] Urine Protein Urine Glucose (UA) Urine Ketones Urine Blood Urine Nitrate Urine Bilirubin Urine Urobilinogen Ur Leukocyte Esterase Urine RBC (Auto) Urine Microscopic WBC Ur Squamous Epith Cells Hyaline Casts Assessment & Plan - Assessment and Plan (Free Text) Assessment: 28 year old male patient, with PMHx of DMI, HTN, with b/l lower extremity wounds. Plan: Patient seen and evaluated Afebrile, WBC 4.6 Wound culture L foot L ankle and foot xrays ordered; pending Local wound care; xeroform, DSD Vasc consulted; reccs appreciated ID consulted; reccs appreciated Silvadene ordered Will continue to follow Thank you for the consult - Date & Time Date: 11/10/18 Time: 15:06
[2018-11-10] MEDS: Enoxaparin 30 mg Syringe SC SCH (19:08)
[2018-11-10] MEDS: Insulin Detemir 100 Units/ml Inj SC SCH (21:54)
[2018-11-11] MEDS: Sodium Chloride 0.45% 1,000 ML IV SCH ×2 (03:36→13:56)
--- NOTE | 2018-11-11 06:47 | CP.PCM.PN ---
Subjective - Date & Time of Evaluation Date of Evaluation: 11/11/18 Time of Evaluation: 06:47 - Subjective Subjective: Podiatry Progress Note: Dr. Freedman 28 year old male patient seen and evaluated at bedside for B/L lower extremity ulcerations with L charcot deformity. Patient resting comfortably and in NAD. He reports multiple episodes of watery diarrhea in the past day. He denies any pain to b/l lower extremities. Denies nausea/vomiting/fever. Objective - Vital Signs/Intake and Output Vital Signs (last 24 hours): Temp Pulse Resp BP Pulse Ox 97.5 F L 76 18 144/95 H 100 11/10/18 23:45 11/11/18 06:41 11/10/18 23:45 11/11/18 06:41 11/10/18 23:45 - Medications Medications: Current Medications Acetaminophen (Tylenol 325mg Tab) 650 mg PO Q4 PRN PRN Reason: Fever >100.4 F Amlodipine Besylate (Norvasc) 10 mg PO DAILY [facility] Last Admin: 11/10/18 12:50 Dose: 10 mg Clonidine HCl (Catapres) 0.2 mg PO TID [facility] Last Admin: 11/11/18 05:50 Dose: 0.2 mg Enoxaparin Sodium (Lovenox) 30 mg SC DAILY@1600 [facility]; Protocol Last Admin: 11/10/18 19:08 Dose: 30 mg Sodium Chloride (Sodium Chloride 0.45%) 1,000 mls @ 60 mls/hr IV .[id number] [facility] Stop: 11/11/18 09:41 Last Admin: 11/11/18 03:36 Dose: Not Given Levofloxacin/Dextrose (Levaquin 500mg) 500 mg in 100 mls @ 100 mls/hr IVPB DAILY [facility]; Protocol Last Admin: 11/10/18 10:00 Dose: Not Given Insulin Detemir (Levemir) 30 units SC HS [facility] Last Admin: 11/10/18 21:54 Dose: 30 units Insulin Human Lispro (Humalog) 8 units SC WM [facility] Last Admin: 11/10/18 19:13 Dose: 8 unit Ketorolac Tromethamine (Toradol) 30 mg IVP Q6 PRN PRN Reason: Pain, moderate (4-7) Lisinopril (Zestril) 40 mg PO DAILY [facility] Last Admin: 11/10/18 12:51 Dose: 40 mg Metoprolol Tartrate (Lopressor) 50 mg PO BID [facility] Last Admin: 11/10/18 23:57 Dose: 50 mg Ondansetron HCl (Zofran Inj) 4 mg IVP Q4 PRN PRN Reason: Nausea/Vomiting Last Admin: 11/10/18 21:54 Dose: 4 mg Saccharomyces Boulardii (Florastor) 250 mg PO BID [facility] Last Admin: 11/10/18 19:13 Dose: 250 mg - Labs Labs: 11/10/18 10:00 11/10/18 04:20 - Constitutional Appears: Non-toxic, No Acute Distress - Head Exam Head Exam: ATRAUMATIC, NORMOCEPHALIC - Extremities Exam Additional comments: VASC: DP and PT 2/4, temperature gradient warm to warm to bilateral lower extremity, CFT < 3 seconds, edema noted to the anterior lateral aspect of the left lower extremity ORTHO: MMT is 5/5 in all four compartments, collapsed arch on left secondary to charcot deformity NEURO: gross and protective sensation intact DERM: LLE ulceration appreciated to the 5th metatarsal , approximately 2.0x1.5x.5cm, and lateral malleolus, approximately 2.5x1x.2cm, with mixed fibrous/granular base, mild serous/sanginous drainage appreciated, no purulence expressed at this time. RLE ulceration appreciated to the anterior aspect of the right leg measuring approximately 8cm x3cm x.2 cm, with fibrous base, no drainage at this time, no purulence expressed. Mild erythema appreciated kassandra- wound bilaterally. - Neurological Exam Neurological Exam: Alert, Awake, Oriented x3 - Psychiatric Exam Psychiatric exam: Normal Affect, Normal Mood Assessment and Plan - Assessment and Plan (Free Text) Assessment: 28 year old male patient, with PMHx of DMI, HTN, with b/l lower extremity wounds secondary to diabetes Plan: Patient seen and evaluated with attending, Dr. Freedman Wound culture L foot; pending L ankle and foot xrays ordered; pending Local wound care; xeroform, DSD Vasc consulted; reccs appreciated ID consulted; reccs appreciated C diff ordered Silvadene ordered Plan for debridement of R leg ulceration next week with possible graft application
[2018-11-11 06:48] LABS: CALCIUM 8.8 mg/dL (8.4-10.2)
[2018-11-11] MEDS: Insulin Lispro (humaLOG) 100 Units/ml Inj SC SCH ×2 (09:38→13:56)
[2018-11-11] MEDS: levoFLOXacin 500 mg in D5W 500 MG/100 ML BAG IVPB SCH (09:41)
[2018-11-11] MEDS: Saccharomyces Boulardi 250 mg Cap PO SCH ×2 (09:44→17:32)
--- NOTE | 2018-11-11 09:48 | US ---
Date of service: 11/11/2018 PROCEDURE: Ultrasound of the Kidneys HISTORY: acute renal failure COMPARISON: None available. TECHNIQUE: Sonogram of the kidneys. FINDINGS: RIGHT KIDNEY: Measures: 4.9 x 6.4 x 10.7 cm. Normal in size, contour and echogenicity. No stone, solid mass lesion or hydronephrosis visualized. Incidental subcentimeter cyst midpole region LEFT KIDNEY: Measures: 5.6 x 6 x 12.2 cm. Normal in size, contour and echogenicity. No stone, solid mass lesion or hydronephrosis visualized. OTHER FINDINGS: None. IMPRESSION: Unremarkable renal sonogram.
--- NOTE | 2018-11-11 11:21 | CP.PCM.CON ---
History of Present Illness - History of Present Illness History of Present Illness: Jus aWgoner, PGY-1, Cardiology Consult Note for Dr. Read 28 year old male with past medical history of hypertension and diabetes presents with 3 days of left flank pain. Patient reports that the pain has gotten worse over time. [place] [facility] [place] with pain medication as no significant findings were found on CT at [place]. Patient was admitted to [facility] as patient's left flank pain has been worsening over the past few days. Patient also reports headache but denies chest pain, shortness of breath, nausea, vom iting, jaw pain, left arm pain, diaphoresis. Patient also reports having bilateral lower extremity ulcers PMH: as stated above PSH: left foot surgery FMHx: no significant cardiac history SHx: marijuana use. denies tobacco and alcohol use Allergies: seasonal PMD: [facility] Review of Systems - Review of Systems Review of Systems: except as mentioned in HPI Past Patient History - Infectious Disease Hx of Infectious Diseases: None - Tetanus Immunizations Tetanus Immunization: Unknown - Past Medical History & Family History Past Medical History?: Yes - Past Social History Smoking Status: Light Smoker < 10 Cigarettes Daily - CARDIAC Hx Hypertension: Yes - PULMONARY Hx Respiratory Disorders: No - NEUROLOGICAL Hx Neurological Disorder: No - HEENT Hx HEENT Problems: No - RENAL Hx Chronic Kidney Disease: Yes - ENDOCRINE/METABOLIC Hx Endocrine Disorders: Yes (SEE COMMENT) - HEMATOLOGICAL/ONCOLOGICAL Hx Blood Disorders: No - INTEGUMENTARY Hx Dermatological Problems: Yes Other/Comment: LEFT LEG - OSTEOMYLITIS - MUSCULOSKELETAL/RHEUMATOLOGICAL Hx Arthritis: Yes (KNEE, ANKLE) Hx Fractures: Yes (2014) - GASTROINTESTINAL Hx Gastrointestinal Disorders: No - GENITOURINARY/GYNECOLOGICAL Hx Genitourinary Disorders: No - PSYCHIATRIC Hx Psychophysiologic Disorder: Yes Hx Substance Use: Yes (marijuana user , smokes marijuana on weekends) - SURGICAL HISTORY Other/Comment: Left foot surgery with graft. L foot debridement - ANESTHESIA Hx Anesthesia: Yes Hx Anesthesia Reactions: No Hx Malignant Hyperthermia: No Meds Allergies/Adverse Reactions: Allergies Allergy/AdvReac Type Severity Reaction Status Date / Time pollen extracts Allergy Intermediate ITCHING Verified 09/10/18 08:05 - Medications Medications: Current Medications Acetaminophen (Tylenol 325mg Tab) 650 mg PO Q4 PRN PRN Reason: Fever >100.4 F Amlodipine Besylate (Norvasc) 10 mg PO DAILY [facility] Last Admin: 11/11/18 09:43 Dose: 10 mg Clonidine HCl (Catapres) 0.2 mg PO TID [facility] Last Admin: 11/11/18 09:44 Dose: 0.2 mg Enoxaparin Sodium (Lovenox) 30 mg SC DAILY@1600 [facility]; Protocol Last Admin: 11/10/18 19:08 Dose: 30 mg Levofloxacin/Dextrose (Levaquin 500mg) 500 mg in 100 mls @ 100 mls/hr IVPB DAILY [facility]; Protocol Last Admin: 11/11/18 09:41 Dose: 100 mls/hr Sodium Chloride (Sodium Chloride 0.45%) 1,000 mls @ 60 mls/hr IV .[id number] [facility] Stop: 11/12/18 09:58 Insulin Detemir (Levemir) 30 units SC HS [facility] Last Admin: 11/10/18 21:54 Dose: 30 units Insulin Human Lispro (Humalog) 8 units SC [facility] Last Admin: 11/11/18 09:38 Dose: 8 unit Ketorolac Tromethamine (Toradol) 30 mg IVP Q6 PRN PRN Reason: Pain, moderate (4-7) Lisinopril (Zestril) 40 mg PO DAILY [facility] Last Admin: 11/11/18 09:43 Dose: 40 mg Metoprolol Tartrate (Lopressor) 50 mg PO BID [facility] Last Admin: 11/11/18 09:42 Dose: 50 mg Ondansetron HCl (Zofran Inj) 4 mg IVP Q4 PRN PRN Reason: Nausea/Vomiting Last Admin: 11/10/18 21:54 Dose: 4 mg Saccharomyces Boulardii (Florastor) 250 mg PO BID [facility] Last Admin: 11/11/18 09:44 Dose: 250 mg Physical Exam - Constitutional Appears: Well, Non-toxic, No Acute Distress - Head Exam Head Exam: ATRAUMATIC, NORMAL INSPECTION, NORMOCEPHALIC - Eye Exam Eye Exam: EOMI, Normal appearance, PERRL - ENT Exam ENT Exam: Mucous Membranes Moist - Respiratory Exam Respiratory Exam: Clear to Auscultation Bilateral, NORMAL BREATHING PATTERN - Cardiovascular Exam Cardiovascular Exam: REGULAR RHYTHM, RRR, +S1, +S2 - GI/Abdominal Exam GI & Abdominal Exam: Normal Bowel Sounds, Soft. absent: Tenderness - Extremities Exam Extremities exam: Positive for: full ROM - Neurological Exam Neurological exam: Alert, CN II-XII Intact, Oriented x3 - Skin Skin Exam: Dry, Intact Additional comments: bilateral lower extremity ulcers Results - Vital Signs Recent Vital Signs: Last Vital Signs Temp 97.8 F 11/11/18 08:01 Pulse 69 11/11/18 09:42 Resp 20 11/11/18 08:01 BP 160/101 H 11/11/18 09:44 Pulse Ox 100 11/11/18 08:01 - Labs Result Diagrams: 11/10/18 10:00 11/11/18 06:00 Labs: Laboratory Results - last 24 hr 11/10/18 11/10/18 11/10/18 13:06 13:07 15:58 Sodium Potassium Chloride Carbon Dioxide Anion Gap BUN Creatinine Est GFR ( Amer) Est GFR (Non-Af Amer) POC Glucose (mg/dL) 292 H 207 H Random Glucose Calcium Phosphorus 4.3 Ur Random Creatinine U Random Total Protein 11/10/18 11/11/18 11/11/18 21:02 05:22 05:22 Sodium Potassium Chloride Carbon Dioxide Anion Gap BUN Creatinine Est GFR ( Amer) Est GFR (Non-Af Amer) POC Glucose (mg/dL) 284 H Random Glucose Calcium Phosphorus Ur Random Creatinine 56.5 U Random Total Protein 430 11/11/18 11/11/18 05:27 06:00 Sodium 135 Potassium 3.9 Chloride 107 Carbon Dioxide 22 Anion Gap 10 BUN 38 H Creatinine 2.9 H Est GFR ( Amer) 32 Est GFR (Non-Af Amer) 26 POC Glucose (mg/dL) 222 H Random Glucose 199 H Calcium 8.8 Phosphorus Ur Random Creatinine U Random Total Protein Assessment & Plan - Assessment and Plan (Free Text) Assessment: Bilateral lower extremity ulcers likely 2/2 to uncontrolled DM Hypertension CORNEL on CKD Mild Cystitis Plan: Bilateral lower extremity ulcers likely 2/2 to uncontrolled DM Hypertension CORNEL on CKD Mild Cystitis UA: negative LE and nitrates Abdominal CT: mild cystitis Renal ultrasound: unremarkable Blood pressure has ranged from 144/95 to 169/106 over the past 24 hours Hgb: 8.5 from 9.1 at baseline BUN/Cr: 38/2.9 HgbA1c 05/03/18: 10.3 Will follow up electrocardiogram Unlikely UTI Possible CTA of bilateral lower extremities to evaluate for significant peripheral vascular disease. Medications: Norvasc 10 mg daily Clonidine 0.2 mg TID Zestril 40 mg daily Lopressor 50 mg BID - Date & Time Date: 11/11/18 Time: 11:22
--- NOTE | 2018-11-11 13:05 | CP.PCM.PN ---
Subjective - Date & Time of Evaluation Date of Evaluation: 11/11/18 Time of Evaluation: 13:05 - Subjective Subjective: STILL HAS FLANK PAINS BP POORLY CONTROLLED Objective - Vital Signs/Intake and Output Vital Signs (last 24 hours): Temp Pulse Resp BP Pulse Ox 97.8 F 69 20 160/101 H 100 11/11/18 08:01 11/11/18 09:42 11/11/18 08:01 11/11/18 09:44 11/11/18 08:01 - Medications Medications: Current Medications Acetaminophen (Tylenol 325mg Tab) 650 mg PO Q4 PRN PRN Reason: Fever >100.4 F Amlodipine Besylate (Norvasc) 10 mg PO DAILY [facility] Last Admin: 11/11/18 09:43 Dose: 10 mg Clonidine HCl (Catapres) 0.2 mg PO TID [facility] Last Admin: 11/11/18 09:44 Dose: 0.2 mg Enoxaparin Sodium (Lovenox) 30 mg SC DAILY@1600 [facility]; Protocol Last Admin: 11/10/18 19:08 Dose: 30 mg Levofloxacin/Dextrose (Levaquin 500mg) 500 mg in 100 mls @ 100 mls/hr IVPB DAILY [facility]; Protocol Last Admin: 11/11/18 09:41 Dose: 100 mls/hr Sodium Chloride (Sodium Chloride 0.45%) 1,000 mls @ 60 mls/hr IV .[id number] [facility] Stop: 11/12/18 09:58 Insulin Detemir (Levemir) 30 units SC HS [facility] Last Admin: 11/10/18 21:54 Dose: 30 units Insulin Human Lispro (Humalog) 8 units SC WM [facility] Last Admin: 11/11/18 09:38 Dose: 8 unit Ketorolac Tromethamine (Toradol) 30 mg IVP Q6 PRN PRN Reason: Pain, moderate (4-7) Lisinopril (Zestril) 40 mg PO DAILY [facility] Last Admin: 11/11/18 09:43 Dose: 40 mg Metoprolol Tartrate (Lopressor) 50 mg PO BID [facility] Last Admin: 11/11/18 09:42 Dose: 50 mg Ondansetron HCl (Zofran Inj) 4 mg IVP Q4 PRN PRN Reason: Nausea/Vomiting Last Admin: 03/22/19 11:41 Dose: 4 mg Saccharomyces Boulardii (Florastor) 250 mg PO BID [facility] Last Admin: 11/11/18 09:44 Dose: 250 mg - Labs Labs: 11/10/18 10:00 11/11/18 06:00 - Constitutional Appears: In Acute Distress, Chronically Ill - Head Exam Head Exam: ATRAUMATIC, NORMAL INSPECTION, NORMOCEPHALIC - Eye Exam Eye Exam: EOMI, Normal appearance, PERRL Pupil Exam: NORMAL ACCOMODATION, PERRL - ENT Exam ENT Exam: Mucous Membranes Moist, Normal Exam - Neck Exam Neck Exam: Full ROM, Normal Inspection. absent: Lymphadenopathy - Respiratory Exam Respiratory Exam: Clear to Ausculation Bilateral, NORMAL BREATHING PATTERN - Cardiovascular Exam Cardiovascular Exam: REGULAR RHYTHM, +S1, +S2. absent: Murmur - GI/Abdominal Exam GI & Abdominal Exam: Soft, Normal Bowel Sounds. absent: Tenderness - Rectal Exam Rectal Exam: NORMAL INSPECTION - Extremities Exam Extremities Exam: Full ROM, Normal Capillary Refill, Normal Inspection, Tenderness. absent: Joint Swelling, Pedal Edema - Back Exam Back Exam: NORMAL INSPECTION - Neurological Exam Neurological Exam: Alert, Awake, CN II-XII Intact, Normal Gait, Oriented x3 - Psychiatric Exam Psychiatric exam: Normal Affect, Normal Mood - Skin Skin Exam: Dry, Intact, Normal Color, Warm Assessment and Plan - Assessment and Plan (Free Text) Assessment: ACUTE PYELONEPHRITIS UNCONTROLLED HTN DM FOOT/ANKLE INJURY Plan: CONTINUE CURRENT RX SEE ORDERS
[2018-11-11] MEDS ORDERED: Oxycodone/Acetaminophen 5/325 mg Tab PO PRN (13:06)
--- NOTE | 2018-11-11 13:23 | RAD ---
Date of service: 11/10/2018 PROCEDURE: Left Ankle Radiographs. HISTORY: L foot ulceration COMPARISON: None available. TECHNIQUE: 3 views obtained. FINDINGS: BONES: There are extensive destructive changes of the midfoot bones as well as the distal margins of the tibia and fibula. Findings consistent with Charcot joint. Note that superimposed infection -chronic osteomyelitis not excluded. Significant surrounding diffuse soft tissue swelling JOINTS: As above. SOFT TISSUES: As above. OTHER FINDINGS: None. IMPRESSION: There are extensive destructive changes of the midfoot bones as well as the distal margins of the tibia and fibula. Findings consistent with Charcot joint. Note that superimposed infection -chronic osteomyelitis not excluded. Significant surrounding diffuse soft tissue swelling possibly representing diffuse cellulitis. Consider follow-up MRI if further evaluation is required.
--- NOTE | 2018-11-11 13:25 | RAD ---
Date of service: 11/10/2018 PROCEDURE: Left Foot Radiographs. HISTORY: L foot ulceration COMPARISON: None. FINDINGS: BONES: There are extensive destructive changes of the midfoot bones as well as the distal margins of the tibia and fibula. Findings consistent with Charcot joint. Note that superimposed infection -chronic osteomyelitis not excluded. Significant surrounding diffuse soft tissue swelling possibly representing diffuse cellulitis.. Questionable ulceration changes along the lateral soft tissues at the level of the head of the 5th metatarsal and possibly at the level of the lateral malleolus region as well. Consider follow-up MRI if further evaluation is required. JOINTS: As above SOFT TISSUES: As above OTHER FINDINGS: None. IMPRESSION: There are extensive destructive changes of the midfoot bones as well as the distal margins of the tibia and fibula. Findings consistent with Charcot joint. Note that superimposed infection -chronic osteomyelitis not excluded. Significant surrounding diffuse soft tissue swelling possibly representing diffuse cellulitis. Questionable ulceration changes along the lateral soft tissues at the level of the head of the 5th metatarsal and possibly at the level of the lateral malleolus region as well. Consider follow-up MRI if further evaluation is required. Consider follow-up MRI if further evaluation is required.
--- NOTE | 2018-11-11 13:37 | CP.PCM.CON ---
History of Present Illness - History of Present Illness History of Present Illness: 28 diabetic patient presents complaining of bilateral flank pain, without nausea or vomiting. Referred for ID eval for possible pyelo Pt was seen at [facility] yesterday for the same symptoms and diagnostically had a CT Abdomen and Pelvis without contrast which indicated only that there is "mild puffiness to his renal collection system." The patient was discharged following a clean UA. Patient has had multiple admiossions for Osteo- has severe charcot foot disease / ulcerations which are slow healing as well as Microvascular disease and possible PAD Vascular eval in progress - Medical History PMH: Arthritis (KNEE, ANKLE), Diabetes (Type 1), Fractures (R shoulder 2015), HTN Denies: Chronic Kidney Disease Review of Systems - Review of Systems All systems: reviewed and no additional remarkable complaints except - Constitutional Constitutional: As Per HPI - EENT Eyes: As Per HPI, Blind Spots, Blurred Vision Ears: absent: As Per HPI, Decreased Hearing, Ear Discharge, Ear Pain, Tinnitus, Abnormal Hearing, Disequilibrium, Dizziness, Other Nose/Mouth/Throat: absent: As Per HPI, Epistaxis, Nasal Congestion, Nasal Discharge, Nasal Obstruction, Nasal Trauma, Nose Pain, Post Nasal Drip, Sinus Pain, Sinus Pressure, Bleeding Gums, Change in Voice, Dental Pain, Dry Mouth, Dysphagia, Halitosis, Hoarsness, Lip Swelling, Mouth Lesions, Mouth Pain, Odynophagia, Sore Throat, Throat Swelling, Tongue Swelling, Facial Pain, Neck Pain, Neck Mass, Other - Cardiovascular Cardiovascular: As Per HPI - Respiratory Respiratory: absent: As Per HPI, Cough, Dyspnea, Hemoptysis, Dyspnea on Exertion, Wheezing, Snoring, Stridor, Pain on Inspiration, Chest Congestion, Excessive Mucous Production, Change in Mucous Color, Pain with Coughing, Other - Gastrointestinal Gastrointestinal: As Per HPI - Genitourinary Genitourinary: As Per HPI - Musculoskeletal Musculoskeletal: As Per HPI, Deformity - Integumentary Integumentary: As Per HPI, Skin Pain, Wounds - Neurological Neurological: As Per HPI, Sensory Deficit - Psychiatric Psychiatric: absent: As Per HPI, Abnormal Sleep Pattern, Anhedonia, Anxiety, Auditory Hallucinations, Behavioral Changes, Change in Appetite, Change in Libido, Confusion, Depression, Difficulty Concentrating, Hallucinations, Homic idal Ideation, Hopelessness, Irritability, Memory Loss, Mood Swings, Panic Attacks, Paranoia, Suicidal Ideation, Visual Hallucinations, Tactile Hallucinations, Other - Endocrine Endocrine: absent: As Per HPI, Change in Body Appearance, Change in Libido, Cold Intolorance, Deepening of Voice, Excessive Sweating, Fatigue, Flushing, Heat Intolorance, Increase in Ring/Shoe/Hat Size, Palpitations, Polydipsia, Polyphagia, Polyuria, Other - Hematologic/Lymphatic Hematologic: absent: As Per HPI, Easy Bleeding, Easy Bruising, Lymphadenopathy, Other Past Patient History - Infectious Disease Hx of Infectious Diseases: None - Tetanus Immunizations Tetanus Immunization: Unknown - Past Medical History & Family History Past Medical History?: Yes - Past Social History Smoking Status: Light Smoker < 10 Cigarettes Daily - CARDIAC Hx Hypertension: Yes - PULMONARY Hx Respiratory Disorders: No - NEUROLOGICAL Hx Neurological Disorder: No - HEENT Hx HEENT Problems: No - RENAL Hx Chronic Kidney Disease: Yes - ENDOCRINE/METABOLIC Hx Endocrine Disorders: Yes (SEE COMMENT) - HEMATOLOGICAL/ONCOLOGICAL Hx Blood Disorders: No - INTEGUMENTARY Hx Dermatological Problems: Yes Other/Comment: LEFT LEG - OSTEOMYLITIS - MUSCULOSKELETAL/RHEUMATOLOGICAL Hx Arthritis: Yes (KNEE, ANKLE) Hx Fractures: Yes (R shoulder 2014) - GASTROINTESTINAL Hx Gastrointestinal Disorders: No - GENITOURINARY/GYNECOLOGICAL Hx Genitourinary Disorders: No - PSYCHIATRIC Hx Psychophysiologic Disorder: Yes Hx Substance Use: Yes (marijuana user , smokes marijuana on weekends) - SURGICAL HISTORY Other/Comment: Left foot surgery with graft. L foot debridement - ANESTHESIA Hx Anesthesia: Yes Hx Anesthesia Reactions: No Hx Malignant Hyperthermia: No Meds Allergies/Adverse Reactions: Allergies Allergy/AdvReac Type Severity Reaction Status Date / Time pollen extracts Allergy Intermediate ITCHING Verified 09/10/18 08:05 - Medications Medications: Current Medications Acetaminophen (Tylenol 325mg Tab) 650 mg PO Q4 PRN PRN Reason: Fever >100.4 F Amlodipine Besylate (Norvasc) 10 mg PO DAILY [facility] Last Admin: 11/11/18 09:43 Dose: 10 mg Clonidine HCl (Catapres) 0.2 mg PO TID [facility] Last Admin: 11/11/18 09:44 Dose: 0.2 mg Enoxaparin Sodium (Lovenox) 30 mg SC DAILY@1600 [facility]; Protocol Last Admin: 11/10/18 19:08 Dose: 30 mg Levofloxacin/Dextrose (Levaquin 500mg) 500 mg in 100 mls @ 100 mls/hr IVPB DAILY [facility]; Protocol Last Admin: 11/11/18 09:41 Dose: 100 mls/hr Sodium Chloride (Sodium Chloride 0.45%) 1,000 mls @ 60 mls/hr IV .[id number] [facility] Stop: 11/12/18 09:58 Insulin Detemir (Levemir) 30 units SC HS [facility] Last Admin: 11/10/18 21:54 Dose: 30 units Insulin Human Lispro (Humalog) 8 units SC WM [facility] Last Admin: 11/11/18 09:38 Dose: 8 unit Ketorolac Tromethamine (Toradol) 30 mg IVP Q6 PRN PRN Reason: Pain, moderate (4-7) Lisinopril (Zestril) 40 mg PO DAILY [facility] Last Admin: 11/11/18 09:43 Dose: 40 mg Metoprolol Tartrate (Lopressor) 100 mg PO BID [facility] Ondansetron HCl (Zofran Inj) 4 mg IVP Q4 PRN PRN Reason: Nausea/Vomiting Last Admin: 11/11/18 11:41 Dose: 4 mg Oxycodone/Acetaminophen (Percocet 5/325 Mg Tab) 1 tab PO Q4 PRN PRN Reason: Pain, Mild (1-3) Stop: 11/14/18 13:07 Saccharomyces Boulardii (Florastor) 250 mg PO BID [facility] Last Admin: 11/11/18 09:44 Dose: 250 mg Physical Exam - Constitutional Appears: No Acute Distress, Chronically Ill - Head Exam Head Exam: ATRAUMATIC, NORMOCEPHALIC - Eye Exam Eye Exam: absent: Scleral icterus - ENT Exam ENT Exam: Mucous Membranes Dry - Neck Exam Neck exam: Negative for: Lymphadenopathy - Respiratory Exam Respiratory Exam: Decreased Breath Sounds - Cardiovascular Exam Cardiovascular Exam: REGULAR RHYTHM, +S1, +S2 - GI/Abdominal Exam GI & Abdominal Exam: Diminished Bowel Sounds, Distended, Soft - Rectal Exam Rectal Exam: Deferred - Exam Exam: NORMAL INSPECTION - Extremities Exam Extremities exam: Positive for: pedal edema, pedal pulses present. Negative for: calf tenderness, normal capillary refill, normal inspection, tenderness Additional comments: excellent pulses bilaterally - Back Exam Back exam: absent: CVA tenderness (L), CVA tenderness (R), paraspinal tenderness - Neurological Exam Neurological exam: Alert, CN II-XII Intact, Oriented x3, Reflexes Normal - Psychiatric Exam Psychiatric exam: Depressed - Skin Skin Exam: Dry Results - Vital Signs Recent Vital Signs: Last Vital Signs Temp 97.8 F 11/11/18 08:01 Pulse 69 11/11/18 09:42 Resp 20 11/11/18 08:01 BP 160/101 H 11/11/18 09:44 Pulse Ox 100 11/11/18 08:01 - Labs Result Diagrams: 11/10/18 10:00 11/11/18 06:00 Labs: Laboratory Results - last 24 hr 11/10/18 11/10/18 11/10/18 13:06 15:58 21:02 Sodium Potassium Chloride Carbon Dioxide Anion Gap BUN Creatinine Est GFR ( Amer) Est GFR (Non-Af Amer) POC Glucose (mg/dL) 207 H 284 H Random Glucose Calcium Phosphorus 4.3 Ur Random Creatinine U Random Total Protein 11/11/18 11/11/18 11/11/18 05:22 05:22 05:27 Sodium Potassium Chloride Carbon Dioxide Anion Gap BUN Creatinine Est GFR ( Amer) Est GFR (Non-Af Amer) POC Glucose (mg/dL) 222 H Random Glucose Calcium Phosphorus Ur Random Creatinine 56.5 U Random Total Protein 430 11/11/18 11/11/18 06:00 11:36 Sodium 135 Potassium 3.9 Chloride 107 Carbon Dioxide 22 Anion Gap 10 BUN 38 H Creatinine 2.9 H Est GFR ( Amer) 32 Est GFR (Non-Af Amer) 26 POC Glucose (mg/dL) 53 L Random Glucose 199 H Calcium 8.8 Phosphorus Ur Random Creatinine U Random Total Protein Assessment & Plan (1) Pyelonephritis Status: Suspected Priority: Low (2) Abdominal pain Status: Acute (3) Abnormal kidney function Status: Acute - Assessment and Plan (Free Text) Assessment: bilat foot ulcers are chronic / has been treatfor OM in the past- has excellent pulses bilaterally - likely severe microangiopathy / neuropathy flank pain of unclear etiology r/o pyelo diabetic nephropathy and neuropathy - severe Poorly controlled HTN Cont rx as per Dr Wahl IV antibiotics reordered cultures pending
[2018-11-11] MEDS ORDERED: Dextrose 50% SYRINGE Inj (50 ml) IVP ONE (14:10)
[2018-11-11] MEDS ORDERED: Dextrose 50% SYRINGE Inj (50 ml) ONE ×2 (14:13→14:17)
--- NOTE | 2018-11-11 15:22 | CP.PCM.PN ---
Subjective - Date & Time of Evaluation Date of Evaluation: 11/11/18 Time of Evaluation: 15:22 - Subjective Subjective: Podiatry Progress Note: Dr. Freedman 28 year old male patient seen and evaluated at bedside for B/L lower extremity ulcerations with L charcot deformity. Objective - Vital Signs/Intake and Output Vital Signs (last 24 hours): Temp Pulse Resp BP Pulse Ox 97.8 F 80 20 170/108 H 100 11/11/18 08:01 11/11/18 13:58 11/11/18 08:01 11/11/18 13:58 11/11/18 08:01 - Medications Medications: Current Medications Acetaminophen (Tylenol 325mg Tab) 650 mg PO Q4 PRN PRN Reason: Fever >100.4 F Amlodipine Besylate (Norvasc) 10 mg PO DAILY [facility] Last Admin: 11/11/18 09:43 Dose: 10 mg Clonidine HCl (Catapres) 0.2 mg PO TID [facility] Last Admin: 11/11/18 13:58 Dose: 0.2 mg Enoxaparin Sodium (Lovenox) 30 mg SC DAILY@1600 [facility]; Protocol Last Admin: 11/10/18 19:08 Dose: 30 mg Sodium Chloride (Sodium Chloride 0.45%) 1,000 mls @ 60 mls/hr IV .[id number] [facility] Stop: 11/12/18 09:58 Last Admin: 11/11/18 13:56 Dose: Not Given Cefazolin Sodium 1 gm/ Sodium (Chloride) 100 mls @ 100 mls/hr IVPB Q12 [facility]; Protocol Insulin Detemir (Levemir) 30 units SC [facility] Last Admin: 11/10/18 21:54 Dose: 30 units Ketorolac Tromethamine (Toradol) 30 mg IVP Q6 PRN PRN Reason: Pain, moderate (4-7) Lisinopril (Zestril) 40 mg PO DAILY [facility] Last Admin: 11/11/18 09:43 Dose: 40 mg Metoprolol Tartrate (Lopressor) 100 mg PO BID [facility] Ondansetron HCl (Zofran Inj) 4 mg IVP Q4 PRN PRN Reason: Nausea/Vomiting Last Admin: 11/11/18 11:41 Dose: 4 mg Oxycodone/Acetaminophen (Percocet 5/325 Mg Tab) 1 tab PO Q4 PRN PRN Reason: Pain, Mild (1-3) Stop: 11/14/18 13:07 Saccharomyces Boulardii (Florastor) 250 mg PO BID [facility] Last Admin: 11/11/18 09:44 Dose: 250 mg - Labs Labs: 11/10/18 10:00 11/11/18 06:00
--- NOTE | 2018-11-11 15:22 | CP.PCM.PN ---
Subjective - Date & Time of Evaluation Date of Evaluation: 11/11/18 Time of Evaluation: 03:00 - Subjective Subjective: Pt c/o abdominal pain which goes to the back. No N&V. Objective - Vital Signs/Intake and Output Vital Signs (last 24 hours): Temp Pulse Resp BP Pulse Ox 97.8 F 80 20 170/108 H 100 11/11/18 08:01 11/11/18 13:58 11/11/18 08:01 11/11/18 13:58 11/11/18 08:01 - Medications Medications: Current Medications Acetaminophen (Tylenol 325mg Tab) 650 mg PO Q4 PRN PRN Reason: Fever >100.4 F Amlodipine Besylate (Norvasc) 10 mg PO DAILY [facility] Last Admin: 11/11/18 09:43 Dose: 10 mg Clonidine HCl (Catapres) 0.2 mg PO TID [facility] Last Admin: 11/11/18 13:58 Dose: 0.2 mg Enoxaparin Sodium (Lovenox) 30 mg SC DAILY@1600 [facility]; Protocol Last Admin: 11/10/18 19:08 Dose: 30 mg Sodium Chloride (Sodium Chloride 0.45%) 1,000 mls @ 60 mls/hr IV .[id number] [facility] Stop: 11/12/18 09:58 Last Admin: 11/11/18 13:56 Dose: Not Given Cefazolin Sodium 1 gm/ Sodium (Chloride) 100 mls @ 100 mls/hr IVPB Q12 [facility]; Protocol Insulin Detemir (Levemir) 30 units SC [facility] Last Admin: 11/10/18 21:54 Dose: 30 units Ketorolac Tromethamine (Toradol) 30 mg IVP Q6 PRN PRN Reason: Pain, moderate (4-7) Lisinopril (Zestril) 40 mg PO DAILY [facility] Last Admin: 11/11/18 09:43 Dose: 40 mg Metoprolol Tartrate (Lopressor) 100 mg PO BID [facility] Ondansetron HCl (Zofran Inj) 4 mg IVP Q4 PRN PRN Reason: Nausea/Vomiting Last Admin: 11/11/18 11:41 Dose: 4 mg Oxycodone/Acetaminophen (Percocet 5/325 Mg Tab) 1 tab PO Q4 PRN PRN Reason: Pain, Mild (1-3) Stop: 11/14/18 13:07 Saccharomyces Boulardii (Florastor) 250 mg PO BID [facility] Last Admin: 11/11/18 09:44 Dose: 250 mg - Labs Labs: 11/10/18 10:00 11/11/18 06:00 - Constitutional Appears: No Acute Distress - Eye Exam Eye Exam: Conjunctival injection - ENT Exam ENT Exam: Mucous Membranes Moist - Respiratory Exam Respiratory Exam: NORMAL BREATHING PATTERN Additional comments: Lungs clear - Cardiovascular Exam Cardiovascular Exam: REGULAR RHYTHM - GI/Abdominal Exam GI & Abdominal Exam: Soft Additional comments: Mild dissuse tenderness - Extremities Exam Additional comments: Lt foot dressed Assessment and Plan - Assessment and Plan (Free Text) Assessment: CRF. Diabetic nephropathy. Renal function is stable Renal Us is unremarkable HTN. Resume Lisinopril BP has been high. Monitor BUN/Creat closely R/o Pyelonephritis. Mx per ID Plan: Will order Lisinopril 20 mg QD. Pt was on it at home Needs ACEI for renal protection.
[2018-11-11] MEDS: Enoxaparin 30 mg Syringe SC SCH (17:33)
[2018-11-11] MEDS: ceFAZolin 1 GM in Sodium Chloride 0.9% 100 ML IVPB SCH (20:23)
--- NOTE | 2018-11-11 22:23 | CARD ---
APPROVED REPORT Date of service: 11/11/2018 EKG Measurement Heart [id number] <Conclusion> Normal sinus rhythm Normal Electrocardiogram
[2018-11-11] MEDS: Insulin Detemir 100 Units/ml Inj SC SCH (22:28)
[2018-11-12] MEDS: Sodium Chloride 0.45% 1,000 ML IV SCH (05:29)
[2018-11-12 08:16] LABS: BASO % 0.6 % (0.0-2.0); EOS # 0.1 K/uL (0.0-0.7); EOS % 3.2 % (0.0-4.0); HEMOGLOBIN 9.1 g/dL (12.0-18.0); LYMPH # 1.1 K/uL (1.0-4.3); LYMPH % 24.2 % (20.0-40.0); MEAN CELL VOLUME 81.9 fl (80.0-94.0); MEAN CORPUSCULAR HGB CONC 34.2 g/dL (33.0-37.0); MEAN PLATELET VOLUME 8.4 fl (7.2-11.7); MONO # 0.5 K/uL (0.0-0.8); MONO % 11.9 % (0.0-10.0); NEUT # 2.8 K/uL (1.8-7.0); NEUT % 60.1 % (50.0-75.0); NRBC % 0.1 % (0.0-0.0); RBC 3.24 Mil/uL (4.40-5.90); RED CELL DISTRIBUTION WIDTH 15.5 % (11.5-14.5); WHITE BLOOD COUNT 4.6 K/uL (4.8-10.8)
[2018-11-12] MEDS: ceFAZolin 1 GM in Sodium Chloride 0.9% 100 ML IVPB SCH ×2 (08:32→21:27)
[2018-11-12] MEDS: Saccharomyces Boulardi 250 mg Cap PO SCH ×2 (08:34→16:53)
[2018-11-12 08:35] LABS: CALCIUM 8.9 mg/dL (8.4-10.2)
[2018-11-12] MEDS: Silver Sulfadiazine 1% Cream (20 gm) TOP SCH (08:37)
--- NOTE | 2018-11-12 10:30 | CP.PCM.PN ---
Subjective - Date & Time of Evaluation Date of Evaluation: 11/12/18 Time of Evaluation: 10:32 - Subjective Subjective: DENIES DIARRHEA BACK PAIN IMPROVING STOOL C.DIF TOXIN NEGATIVE BUT AG POSITIVE--NO INDICATION OF ACUTE CDIF DZ--NO NEED FOR THERAPY BLOOD CULTURE+ Objective - Vital Signs/Intake and Output Vital Signs (last 24 hours): Temp Pulse Resp BP Pulse Ox 98.1 F 71 20 157/99 H 100 11/12/18 08:41 11/12/18 08:41 11/12/18 08:41 11/12/18 08:41 11/12/18 08:41 - Medications Medications: Current Medications Acetaminophen (Tylenol 325mg Tab) 650 mg PO Q4 PRN PRN Reason: Fever >100.4 F Amlodipine Besylate (Norvasc) 10 mg PO DAILY [facility] Last Admin: 11/12/18 08:35 Dose: 10 mg Clonidine HCl (Catapres) 0.2 mg PO TID [facility] Last Admin: 11/12/18 08:36 Dose: 0.2 mg Enoxaparin Sodium (Lovenox) 30 mg SC DAILY@1600 [facility]; Protocol Last Admin: 11/11/18 17:33 Dose: 30 mg Cefazolin Sodium 1 gm/ Sodium (Chloride) 100 mls @ 100 mls/hr IVPB Q12 [facility]; Protocol Last Admin: 11/12/18 08:32 Dose: 100 mls/hr Insulin Detemir (Levemir) 30 units SC HS [facility] Last Admin: 11/11/18 22:28 Dose: 30 units Ketorolac Tromethamine (Toradol) 30 mg IVP Q6 PRN PRN Reason: Pain, moderate (4-7) Last Admin: 11/12/18 05:02 Dose: 30 mg Metoprolol Tartrate (Lopressor) 100 mg PO BID [facility] Last Admin: 11/12/18 08:35 Dose: 100 mg Ondansetron HCl (Zofran Inj) 4 mg IVP Q4 PRN PRN Reason: Nausea/Vomiting Last Admin: 11/11/18 11:41 Dose: 4 mg Oxycodone/Acetaminophen (Percocet 5/325 Mg Tab) 1 tab PO Q4 PRN PRN Reason: Pain, Mild (1-3) Stop: 11/14/18 13:07 Saccharomyces Boulardii (Florastor) 250 mg PO BID [facility] Last Admin: 11/12/18 08:34 Dose: 250 mg Silver Sulfadiazine (Silvadene 1% 20 Gm) 0 ea TOP DAILY [facility] Last Admin: 11/12/18 08:37 Dose: 1 applic - Labs Labs: 11/12/18 07:00 11/12/18 07:00 - Constitutional Appears: No Acute Distress - Head Exam Head Exam: ATRAUMATIC, NORMAL INSPECTION, NORMOCEPHALIC - Eye Exam Eye Exam: EOMI, Normal appearance, PERRL Pupil Exam: NORMAL ACCOMODATION, PERRL - ENT Exam ENT Exam: Mucous Membranes Moist, Normal Exam - Neck Exam Neck Exam: Full ROM, Normal Inspection. absent: Lymphadenopathy - Respiratory Exam Respiratory Exam: Clear to Ausculation Bilateral, NORMAL BREATHING PATTERN - Cardiovascular Exam Cardiovascular Exam: REGULAR RHYTHM, +S1, +S2. absent: Murmur - GI/Abdominal Exam GI & Abdominal Exam: Soft, Normal Bowel Sounds. absent: Tenderness - Rectal Exam Rectal Exam: NORMAL INSPECTION - Extremities Exam Extremities Exam: Full ROM, Normal Capillary Refill, Normal Inspection, Tenderness. absent: Joint Swelling, Pedal Edema Additional comments: L FOOT/ANKLE TENDERNESS - Back Exam Back Exam: NORMAL INSPECTION - Neurological Exam Neurological Exam: Alert, Awake, CN II-XII Intact, Normal Gait, Oriented x3 - Psychiatric Exam Psychiatric exam: Normal Affect, Normal Mood - Skin Skin Exam: Dry, Intact, Normal Color, Warm Assessment and Plan - Assessment and Plan (Free Text) Assessment: ACUTE PYELONEPHRITIS ACUTE KIDNEY INJURY SEPSIS L FOOT/ANKLE INFECTION---ARTHRITIS DM--UNCONTROLLED HTN-UNCONTROLLED Plan: CONTINUE RX ORDERED
[2018-11-12] MEDS ORDERED: Alum-Mag Hydrox-Simethicone Susp (30 mL) PO ONE (11:23)
--- NOTE | 2018-11-12 12:00 | CP.PCM.PN ---
Subjective - Date & Time of Evaluation Date of Evaluation: 11/12/18 Time of Evaluation: 11:30 - Subjective Subjective: Appears comfortable in bed, Objective - Vital Signs/Intake and Output Vital Signs (last 24 hours): Temp Pulse Resp BP Pulse Ox 98.1 F 71 20 157/99 H 100 11/12/18 08:41 11/12/18 08:41 11/12/18 08:41 11/12/18 08:41 11/12/18 08:41 - Medications Medications: Current Medications Acetaminophen (Tylenol 325mg Tab) 650 mg PO Q4 PRN PRN Reason: Fever >100.4 F Amlodipine Besylate (Norvasc) 10 mg PO DAILY [facility] Last Admin: 11/12/18 08:35 Dose: 10 mg Clonidine HCl (Catapres) 0.2 mg PO TID [facility] Last Admin: 11/12/18 08:36 Dose: 0.2 mg Enoxaparin Sodium (Lovenox) 30 mg SC DAILY@1600 [facility]; Protocol Last Admin: 11/11/18 17:33 Dose: 30 mg Cefazolin Sodium 1 gm/ Sodium (Chloride) 100 mls @ 100 mls/hr IVPB Q12 [facility]; Protocol Last Admin: 11/12/18 08:32 Dose: 100 mls/hr Insulin Detemir (Levemir) 30 units SC HS [facility] Last Admin: 11/11/18 22:28 Dose: 30 units Ketorolac Tromethamine (Toradol) 30 mg IVP Q6 PRN PRN Reason: Pain, moderate (4-7) Last Admin: 11/12/18 05:02 Dose: 30 mg Metoprolol Tartrate (Lopressor) 100 mg PO BID [facility] Last Admin: 11/12/18 08:35 Dose: 100 mg Ondansetron HCl (Zofran Inj) 4 mg IVP Q4 PRN PRN Reason: Nausea/Vomiting Last Admin: 11/12/18 11:07 Dose: 4 mg Oxycodone/Acetaminophen (Percocet 5/325 Mg Tab) 1 tab PO Q4 PRN PRN Reason: Pain, Mild (1-3) Stop: 11/14/18 13:07 Saccharomyces Boulardii (Florastor) 250 mg PO BID [facility] Last Admin: 11/12/18 08:34 Dose: 250 mg Silver Sulfadiazine (Silvadene 1% 20 Gm) 0 ea TOP DAILY [facility] Last Admin: 11/12/18 08:37 Dose: 1 applic - Labs Labs: 11/12/18 07:00 11/12/18 07:00 - Constitutional Appears: No Acute Distress - Head Exam Head Exam: ATRAUMATIC, NORMOCEPHALIC - Eye Exam Eye Exam: Normal appearance - ENT Exam ENT Exam: Mucous Membranes Moist - Neck Exam Additional comments: No jugular venous distension - Respiratory Exam Additional comments: Lungs clear - Cardiovascular Exam Cardiovascular Exam: REGULAR RHYTHM - GI/Abdominal Exam GI & Abdominal Exam: Soft Additional comments: Mild diffuse tenderness - Extremities Exam Additional comments: No edema. Leg wounds dressed Assessment and Plan - Assessment and Plan (Free Text) Assessment: Acute on chronic renal failure. Creat. is improving Diabetic nephropthy Blood cultures positive for G+ cocci on preliminary report. HTN Improving .Meds were adjusted by Dr Wahl. [place] + Plan: Continue current Mx Monitor BP, renal function ID on case
--- NOTE | 2018-11-12 14:15 | CP.PCM.PN ---
Subjective - Date & Time of Evaluation Date of Evaluation: 11/12/18 Time of Evaluation: 14:13 - Subjective Subjective: Podiatry Progress Note: Dr. Freedman 28 year old male patient seen and evaluated at bedside for B/L lower extremity ulcerations with L charcot deformity. Patient resting comfortably and in NAD. Patient aware for plan for debridement of R leg ulceration. Denies nausea/vomiting/fever. Objective - Vital Signs/Intake and Output Vital Signs (last 24 hours): Temp Pulse Resp BP Pulse Ox 98.1 F 71 20 157/99 H 100 11/12/18 08:41 11/12/18 08:41 11/12/18 08:41 11/12/18 08:41 11/12/18 08:41 - Medications Medications: Current Medications Acetaminophen (Tylenol 325mg Tab) 650 mg PO Q4 PRN PRN Reason: Fever >100.4 F Amlodipine Besylate (Norvasc) 10 mg PO DAILY [facility] Last Admin: 11/12/18 08:35 Dose: 10 mg Clonidine HCl (Catapres) 0.2 mg PO TID [facility] Last Admin: 11/12/18 12:03 Dose: 0.2 mg Enoxaparin Sodium (Lovenox) 30 mg SC DAILY@1600 [facility]; Protocol Last Admin: 11/11/18 17:33 Dose: 30 mg Cefazolin Sodium 1 gm/ Sodium (Chloride) 100 mls @ 100 mls/hr IVPB Q12 [facility]; Protocol Last Admin: 11/12/18 08:32 Dose: 100 mls/hr Insulin Detemir (Levemir) 30 units SC [facility] Last Admin: 11/11/18 22:28 Dose: 30 units Ketorolac Tromethamine (Toradol) 30 mg IVP Q6 PRN PRN Reason: Pain, moderate (4-7) Last Admin: 11/12/18 05:02 Dose: 30 mg Metoprolol Tartrate (Lopressor) 100 mg PO BID [facility] Last Admin: 11/12/18 08:35 Dose: 100 mg Ondansetron HCl (Zofran Inj) 4 mg IVP Q4 PRN PRN Reason: Nausea/Vomiting Last Admin: 11/12/18 11:07 Dose: 4 mg Oxycodone/Acetaminophen (Percocet 5/325 Mg Tab) 1 tab PO Q4 PRN PRN Reason: Pain, Mild (1-3) Stop: 11/14/18 13:07 Saccharomyces Jeisondii (Florastor) 250 mg PO BID [facility] Last Admin: 11/12/18 08:34 Dose: 250 mg Silver Sulfadiazine (Silvadene 1% 20 Gm) 0 ea TOP DAILY [facility] Last Admin: 11/12/18 08:37 Dose: 1 applic - Labs Labs: 11/12/18 07:00 11/12/18 07:00 - Constitutional Appears: Non-toxic, No Acute Distress - Head Exam Head Exam: ATRAUMATIC, NORMOCEPHALIC - Extremities Exam Additional comments: VASC: DP and PT 2/4, temperature gradient warm to warm to bilateral lower extremity, CFT < 3 seconds, edema noted to the anterior lateral aspect of the left lower extremity ORTHO: MMT is 5/5 in all four compartments, collapsed arch on left secondary to charcot deformity NEURO: gross and protective sensation intact DERM: LLE ulceration appreciated to the 5th metatarsal , approximately 2. 0x1.5x.5cm, and lateral malleolus, approximately 2.5x1x.2cm, with mixed fibrous/granular base, mild serous/sanginous drainage appreciated, no purulence expressed at this time. RLE ulceration appreciated to the anterior aspect of the right leg measuring approximately 8cm x3cm x.2 cm, with fibrous base, no drainage at this time, no purulence expressed. Mild erythema appreciated kassandra- wound bilaterally. - Neurological Exam Neurological Exam: Alert, Awake, Oriented x3 - Psychiatric Exam Psychiatric exam: Normal Affect, Normal Mood Assessment and Plan - Assessment and Plan (Free Text) Assessment: 28 year old male patient, with PMHx of DMI, HTN, with b/l lower extremity wounds secondary to diabetes Plan: Patient seen and evaluated Discussed with attending, Dr. Freedman Wound culture L foot; Gram + Cocci L ankle and foot xrays ordered; Findings consistent with Charcot joint. Destructive changes of midfoot bones as well as the distal margins of the tibia and fibular. Note that superimposed infection-chronic OM not excluded Local wound care; silvadene, xeroform, DSD Vasc consulted; reccs appreciated ID consulted; reccs appreciated Plan for debridement of R leg ulceration early next week with possible graft application Please medically optimize patient Please provide medical clearance for wound debridement
--- NOTE | 2018-11-12 16:34 | CP.PCM.PN ---
Subjective - Date & Time of Evaluation Date of Evaluation: 11/12/18 Time of Evaluation: 08:00 - Subjective Subjective: blood culture + cocci not informed cdiff + not informed start IV and PO Vanco for debridement Objective - Vital Signs/Intake and Output Vital Signs (last 24 hours): Temp Pulse Resp BP Pulse Ox 97.5 F L 71 18 124/75 100 11/12/18 16:23 11/12/18 16:23 11/12/18 16:23 11/12/18 16:23 11/12/18 16:23 - Medications Medications: Current Medications Acetaminophen (Tylenol 325mg Tab) 650 mg PO Q4 PRN PRN Reason: Fever >100.4 F Amlodipine Besylate (Norvasc) 10 mg PO DAILY [facility] Last Admin: 11/12/18 08:35 Dose: 10 mg Clonidine HCl (Catapres) 0.2 mg PO TID [facility] Last Admin: 11/12/18 12:03 Dose: 0.2 mg Enoxaparin Sodium (Lovenox) 30 mg SC DAILY@1600 [facility]; Protocol Last Admin: 11/11/18 17:33 Dose: 30 mg Cefazolin Sodium 1 gm/ Sodium (Chloride) 100 mls @ 100 mls/hr IVPB Q12 [facility]; Protocol Last Admin: 11/12/18 08:32 Dose: 100 mls/hr Metronidazole (Flagyl 500mg/100ml Ns) 100 mls @ 100 mls/hr IVPB Q8 [facility]; Protocol Vancomycin HCl 1,000 mg/ (Sodium Chloride) 250 mls @ 250 mls/hr IVPB ONCE ONE; Protocol Stop: 11/12/18 17:30 Insulin Detemir (Levemir) 30 units SC [facility] Last Admin: 11/11/18 22:28 Dose: 30 units Ketorolac Tromethamine (Toradol) 30 mg IVP Q6 PRN PRN Reason: Pain, moderate (4-7) Last Admin: 11/12/18 05:02 Dose: 30 mg Metoprolol Tartrate (Lopressor) 100 mg PO BID [facility] Last Admin: 11/12/18 08:35 Dose: 100 mg Ondansetron HCl (Zofran Inj) 4 mg IVP Q4 PRN PRN Reason: Nausea/Vomiting Last Admin: 11/12/18 11:07 Dose: 4 mg Oxycodone/Acetaminophen (Percocet 5/325 Mg Tab) 1 tab PO Q4 PRN PRN Reason: Pain, Mild (1-3) Stop: 11/14/18 13:07 Saccharomyces Boulardii (Florastor) 250 mg PO BID [facility] Last Admin: 11/12/18 08:34 Dose: 250 mg Silver Sulfadiazine (Silvadene 1% 20 Gm) 0 ea TOP DAILY [facility] Last Admin: 11/12/18 08:37 Dose: 1 applic Vancomycin HCl (Vancocin (Oral/Rectal Use)) 250 mg PO Q6H [facility]; Protocol - Labs Labs: 11/12/18 07:00 11/12/18 07:00 Assessment and Plan (1) Pyelonephritis Status: Suspected (2) Abdominal pain Status: Acute (3) Abnormal kidney function Status: Acute
[2018-11-12] MEDS: Enoxaparin 30 mg Syringe SC SCH (16:53)
[2018-11-12] MEDS: metroNIDAZOLE 500mg/100ml NS 100 ML IVPB SCH (17:45)
[2018-11-12] MEDS: Vancomycin 500 mg (Oral/Rectal USE) PO SCH ×2 (17:52→21:30)
[2018-11-12] MEDS: Insulin Detemir 100 Units/ml Inj SC SCH (23:15)
[2018-11-13] MEDS: metroNIDAZOLE 500mg/100ml NS 100 ML IVPB SCH ×3 (00:33→18:23)
[2018-11-13] MEDS: Vancomycin 500 mg (Oral/Rectal USE) PO SCH ×4 (04:36→21:52)
[2018-11-13] MEDS: ceFAZolin 1 GM in Sodium Chloride 0.9% 100 ML IVPB SCH (10:57)
[2018-11-13] MEDS: Saccharomyces Boulardi 250 mg Cap PO SCH ×2 (10:59→16:45)
--- NOTE | 2018-11-13 11:28 | CP.PCM.PN ---
Subjective - Date & Time of Evaluation Date of Evaluation: 11/13/18 Time of Evaluation: 11:29 - Subjective Subjective: ABDOMINAL PAIN AND DIARRHEA IMPROVING STILL WEAK LEG PAIN IMPROVING Objective - Vital Signs/Intake and Output Vital Signs (last 24 hours): Temp Pulse Resp BP Pulse Ox 98 F 70 20 134/90 100 11/13/18 08:30 11/13/18 11:01 11/13/18 08:30 11/13/18 11:01 11/13/18 08:30 - Medications Medications: Current Medications Acetaminophen (Tylenol 325mg Tab) 650 mg PO Q4 PRN PRN Reason: Fever >100.4 F Amlodipine Besylate (Norvasc) 10 mg PO DAILY [facility] Last Admin: 11/13/18 11:00 Dose: 10 mg Clonidine HCl (Catapres) 0.2 mg PO TID [facility] Last Admin: 11/13/18 11:01 Dose: 0.2 mg Enoxaparin Sodium (Lovenox) 30 mg SC DAILY@1600 [facility]; Protocol Last Admin: 11/12/18 16:53 Dose: Not Given Cefazolin Sodium 1 gm/ Sodium (Chloride) 100 mls @ 100 mls/hr IVPB Q12 [facility]; Protocol Last Admin: 11/13/18 10:57 Dose: 100 mls/hr Metronidazole (Flagyl 500mg/100ml Ns) 100 mls @ 100 mls/hr IVPB Q8 [facility]; Protocol Last Admin: 11/13/18 00:33 Dose: 100 mls/hr Insulin Detemir (Levemir) 30 units SC HS [facility] Last Admin: 11/12/18 23:15 Dose: 30 units Ketorolac Tromethamine (Toradol) 30 mg IVP Q6 PRN PRN Reason: Pain, moderate (4-7) Last Admin: 11/13/18 08:07 Dose: 30 mg Metoprolol Tartrate (Lopressor) 100 mg PO BID [facility] Last Admin: 11/13/18 11:00 Dose: 100 mg Ondansetron HCl (Zofran Inj) 4 mg IVP Q4 PRN PRN Reason: Nausea/Vomiting Last Admin: 11/13/18 04:37 Dose: 4 mg Oxycodone/Acetaminophen (Percocet 5/325 Mg Tab) 1 tab PO Q4 PRN PRN Reason: Pain, Mild (1-3) Stop: 11/14/18 13:07 Saccharomyces Boulardii (Florastor) 250 mg PO BID [facility] Last Admin: 11/13/18 10:59 Dose: 250 mg Silver Sulfadiazine (Silvadene 1% 20 Gm) 0 ea TOP DAILY [facility] Last Admin: 11/12/18 08:37 Dose: 1 applic Vancomycin HCl (Vancocin (Oral/Rectal Use)) 250 mg PO Q6H [facility]; Protocol Last Admin: 11/13/18 11:02 Dose: 250 mg - Labs Labs: 11/12/18 07:00 11/12/18 07:00 - Constitutional Appears: Chronically Ill - Head Exam Head Exam: ATRAUMATIC, NORMAL INSPECTION, NORMOCEPHALIC - Eye Exam Eye Exam: EOMI, Normal appearance, PERRL Pupil Exam: NORMAL ACCOMODATION, PERRL - ENT Exam ENT Exam: Mucous Membranes Moist, Normal Exam - Neck Exam Neck Exam: Full ROM, Normal Inspection. absent: Lymphadenopathy - Respiratory Exam Respiratory Exam: Clear to Ausculation Bilateral, NORMAL BREATHING PATTERN - Cardiovascular Exam Cardiovascular Exam: REGULAR RHYTHM, +S1, +S2. absent: Murmur - GI/Abdominal Exam GI & Abdominal Exam: Soft, Normal Bowel Sounds. absent: Tenderness - Rectal Exam Rectal Exam: NORMAL INSPECTION - Extremities Exam Extremities Exam: Full ROM, Normal Capillary Refill, Tenderness. 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
--- NOTE | 2018-11-13 12:35 | CP.PCM.PN ---
Subjective - Date & Time of Evaluation Date of Evaluation: 11/13/18 Time of Evaluation: 11:30 - Subjective Subjective: C/o abdominal pain. Stll has loose BMs Objective - Vital Signs/Intake and Output Vital Signs (last 24 hours): Temp Pulse Resp BP Pulse Ox 98 F 70 20 134/90 100 11/13/18 08:30 11/13/18 11:01 11/13/18 08:30 11/13/18 11:01 11/13/18 08:30 - Medications Medications: Current Medications Acetaminophen (Tylenol 325mg Tab) 650 mg PO Q4 PRN PRN Reason: Fever >100.4 F Amlodipine Besylate (Norvasc) 10 mg PO DAILY [facility] Last Admin: 11/13/18 11:00 Dose: 10 mg Clonidine HCl (Catapres) 0.2 mg PO TID [facility] Last Admin: 11/13/18 11:01 Dose: 0.2 mg Enoxaparin Sodium (Lovenox) 30 mg SC DAILY@1600 [facility]; Protocol Last Admin: 11/12/18 16:53 Dose: Not Given Cefazolin Sodium 1 gm/ Sodium (Chloride) 100 mls @ 100 mls/hr IVPB Q12 [facility]; Protocol Last Admin: 11/13/18 10:57 Dose: 100 mls/hr Metronidazole (Flagyl 500mg/100ml Ns) 100 mls @ 100 mls/hr IVPB Q8 [facility]; Protocol Last Admin: 11/13/18 00:33 Dose: 100 mls/hr Insulin Detemir (Levemir) 30 units SC HS [facility] Last Admin: 11/12/18 23:15 Dose: 30 units Ketorolac Tromethamine (Toradol) 30 mg IVP Q6 PRN PRN Reason: Pain, moderate (4-7) Last Admin: 11/13/18 08:07 Dose: 30 mg Metoprolol Tartrate (Lopressor) 100 mg PO BID [facility] Last Admin: 11/13/18 11:00 Dose: 100 mg Ondansetron HCl (Zofran Inj) 4 mg IVP Q4 PRN PRN Reason: Nausea/Vomiting Last Admin: 11/13/18 04:37 Dose: 4 mg Oxycodone/Acetaminophen (Percocet 5/325 Mg Tab) 1 tab PO Q4 PRN PRN Reason: Pain, Mild (1-3) Stop: 11/14/18 13:07 Saccharomyces Boulardii (Florastor) 250 mg PO BID [facility] Last Admin: 11/13/18 10:59 Dose: 250 mg Silver Sulfadiazine (Silvadene 1% 20 Gm) 0 ea TOP DAILY [facility] Last Admin: 11/12/18 08:37 Dose: 1 applic Vancomycin HCl (Vancocin (Oral/Rectal Use)) 250 mg PO Q6H [facility]; Protocol Last Admin: 11/13/18 11:02 Dose: 250 mg - Labs Labs: 11/12/18 07:00 11/12/18 07:00 - Constitutional Appears: No Acute Distress - Head Exam Head Exam: ATRAUMATIC, NORMOCEPHALIC - Eye Exam Eye Exam: Normal appearance - ENT Exam ENT Exam: Mucous Membranes Dry - Neck Exam Additional comments: supple - Respiratory Exam Respiratory Exam: NORMAL BREATHING PATTERN Additional comments: Lungs clear - Cardiovascular Exam Cardiovascular Exam: REGULAR RHYTHM - GI/Abdominal Exam GI & Abdominal Exam: Soft - Extremities Exam Additional comments: No edema.B/L leg ulcers dressd Assessment and Plan - Assessment and Plan (Free Text) Assessment: Diabetic nephropathy. Creatinine is improving HTN BP now controlled Staph(coagulase negative) bacteremia PyelonephritiC.diff colitis IDDB Plan: Continue curent meds Abx per ID Monitor renal function.
--- NOTE | 2018-11-13 12:49 | CP.PCM.PN ---
Subjective - Date & Time of Evaluation Date of Evaluation: 11/13/18 Time of Evaluation: 08:00 - Subjective Subjective: blood culture + cocci C diff + started IV and PO Vanco on isolation less diarrhea and pain for debridement Objective - Vital Signs/Intake and Output Vital Signs (last 24 hours): Temp Pulse Resp BP Pulse Ox 98 F 70 20 134/90 100 11/13/18 08:30 11/13/18 11:01 11/13/18 08:30 11/13/18 11:01 11/13/18 08:30 - Medications Medications: Current Medications Acetaminophen (Tylenol 325mg Tab) 650 mg PO Q4 PRN PRN Reason: Fever >100.4 F Amlodipine Besylate (Norvasc) 10 mg PO DAILY [facility] Last Admin: 11/13/18 11:00 Dose: 10 mg Clonidine HCl (Catapres) 0.2 mg PO TID [facility] Last Admin: 11/13/18 11:01 Dose: 0.2 mg Enoxaparin Sodium (Lovenox) 30 mg SC DAILY@1600 [facility]; Protocol Last Admin: 11/12/18 16:53 Dose: Not Given Cefazolin Sodium 1 gm/ Sodium (Chloride) 100 mls @ 100 mls/hr IVPB Q12 [facility]; Protocol Last Admin: 11/13/18 10:57 Dose: 100 mls/hr Metronidazole (Flagyl 500mg/100ml Ns) 100 mls @ 100 mls/hr IVPB Q8 [facility]; Protocol Last Admin: 11/13/18 00:33 Dose: 100 mls/hr Insulin Detemir (Levemir) 30 units SC HS [facility] Last Admin: 11/12/18 23:15 Dose: 30 units Ketorolac Tromethamine (Toradol) 30 mg IVP Q6 PRN PRN Reason: Pain, moderate (4-7) Last Admin: 11/13/18 08:07 Dose: 30 mg Metoprolol Tartrate (Lopressor) 100 mg PO BID [facility] Last Admin: 11/13/18 11:00 Dose: 100 mg Ondansetron HCl (Zofran Inj) 4 mg IVP Q4 PRN PRN Reason: Nausea/Vomiting Last Admin: 11/13/18 04:37 Dose: 4 mg Oxycodone/Acetaminophen (Percocet 5/325 Mg Tab) 1 tab PO Q4 PRN PRN Reason: Pain, Mild (1-3) Stop: 11/14/18 13:07 Saccharomyces Boulardii (Florastor) 250 mg PO BID [facility] Last Admin: 11/13/18 10:59 Dose: 250 mg Silver Sulfadiazine (Silvadene 1% 20 Gm) 0 ea TOP DAILY [facility] Last Admin: 11/12/18 08:37 Dose: 1 applic Vancomycin HCl (Vancocin (Oral/Rectal Use)) 250 mg PO Q6H [facility]; Protocol Last Admin: 11/13/18 11:02 Dose: 250 mg - Labs Labs: 11/12/18 07:00 11/12/18 07:00 - Constitutional Appears: Non-toxic, Chronically Ill - Head Exam Head Exam: NORMOCEPHALIC - Eye Exam Eye Exam: absent: Scleral icterus - ENT Exam ENT Exam: Mucous Membranes Dry - Neck Exam Neck Exam: absent: Lymphadenopathy - Respiratory Exam Respiratory Exam: Decreased Breath Sounds, Clear to Ausculation Bilateral - Cardiovascular Exam Cardiovascular Exam: REGULAR RHYTHM, +S1, +S2 - GI/Abdominal Exam GI & Abdominal Exam: Distended, Soft. absent: Tenderness - Rectal Exam Rectal Exam: Deferred - Extremities Exam Extremities Exam: Pedal Edema. absent: Calf Tenderness, Normal Inspection Additional comments: + ulcers to legs / feet - Back Exam Back Exam: absent: CVA tenderness (L), CVA tenderness (R) - Neurological Exam Neurological Exam: Alert, Awake, CN II-XII Intact - Psychiatric Exam Psychiatric exam: Depressed - Skin Skin Exam: Dry Assessment and Plan (1) Pyelonephritis Status: Suspected (2) Abdominal pain Status: Acute (3) Abnormal kidney function Status: Acute - Assessment and Plan (Free Text) Assessment: blood culture + cocci C diff + started IV and PO Vanco on isolation less diarrhea and pain for debridement with Dr Freedman
[2018-11-13] MEDS: Silver Sulfadiazine 1% Cream (20 gm) TOP SCH (16:31)
[2018-11-13] MEDS: Enoxaparin 30 mg Syringe SC SCH ×2 (16:40→16:44)
[2018-11-13] MEDS: Insulin Lispro (humaLOG) 100 Units/ml Inj SC SCH (21:44)
[2018-11-13] MEDS: Insulin Detemir 100 Units/ml Inj SC SCH (21:45)
[2018-11-14] MEDS: metroNIDAZOLE 500mg/100ml NS 100 ML IVPB SCH ×3 (00:26→21:48)
[2018-11-14] MEDS: Vancomycin 500 mg (Oral/Rectal USE) PO SCH ×3 (05:31→17:49)
[2018-11-14 07:24] LABS: BASO # 0.1 K/uL (0.0-0.2); EOS # 0.2 K/uL (0.0-0.7); EOS % 3.5 % (0.0-4.0); HEMOGLOBIN 9.9 g/dL (12.0-18.0); LYMPH # 1.4 K/uL (1.0-4.3); LYMPH % 28.3 % (20.0-40.0); MEAN CELL VOLUME 82.7 fl (80.0-94.0); MEAN CORPUSCULAR HEMOGLOBIN 27.8 pg (27.0-31.0); MEAN CORPUSCULAR HGB CONC 33.6 g/dL (33.0-37.0); MEAN PLATELET VOLUME 8.2 fl (7.2-11.7); MONO # 0.4 K/uL (0.0-0.8); MONO % 8.2 % (0.0-10.0); NEUT # 2.9 K/uL (1.8-7.0); NRBC % 0.1 % (0.0-0.0); RBC 3.55 Mil/uL (4.40-5.90); RED CELL DISTRIBUTION WIDTH 15.5 % (11.5-14.5)
[2018-11-14 07:26] LABS: CALCIUM 8.8 mg/dL (8.4-10.2)
--- NOTE | 2018-11-14 08:10 | CP.PCM.PN ---
Subjective - Date & Time of Evaluation Date of Evaluation: 11/14/18 Time of Evaluation: 07:53 - Subjective Subjective: Podiatry Progress Note: Dr. Freedman 28 year old male patient seen and evaluated at bedside for B/L lower extremity ulcerations with L charcot deformity. Patient resting comfortably and in NAD. Patient aware for plan for plan for R leg wound debridement tomorrow morning. Denies nausea/vomiting/fever/shortness of breath. Objective - Vital Signs/Intake and Output Vital Signs (last 24 hours): Temp Pulse Resp BP Pulse Ox 97.3 F L 74 20 150/94 H 100 11/13/18 23:54 11/13/18 23:54 11/13/18 23:54 11/13/18 23:54 11/13/18 23:54 - Medications Medications: Current Medications Acetaminophen (Tylenol 325mg Tab) 650 mg PO Q4 PRN PRN Reason: Fever >100.4 F Amlodipine Besylate (Norvasc) 10 mg PO DAILY [facility] Last Admin: 11/13/18 11:00 Dose: 10 mg Clonidine HCl (Catapres) 0.2 mg PO TID [facility] Last Admin: 11/13/18 16:52 Dose: 0.2 mg Metronidazole (Flagyl 500mg/100ml Ns) 100 mls @ 100 mls/hr IVPB Q8 [facility]; Protocol Last Admin: 11/14/18 00:26 Dose: 100 mls/hr Vancomycin HCl 1 gm/ Sodium (Chloride) 250 mls @ 166.667 mls/hr IVPB Q24H [facility]; Protocol Last Admin: 11/13/18 14:10 Dose: 166.667 mls/hr Insulin Detemir (Levemir) 30 units SC HS [facility] Last Admin: 11/13/18 21:45 Dose: 30 units Insulin Human Lispro (Humalog) 0 units SC ACHS [facility]; Protocol Last Admin: 11/13/18 21:44 Dose: Not Given Ketorolac Tromethamine (Toradol) 30 mg IVP Q6 PRN PRN Reason: Pain, moderate (4-7) Metoprolol Tartrate (Lopressor) 100 mg PO BID [facility] Last Admin: 11/13/18 16:52 Dose: 100 mg Ondansetron HCl (Zofran Inj) 4 mg IVP Q4 PRN PRN Reason: Nausea/Vomiting Last Admin: 11/13/18 17:05 Dose: 4 mg Oxycodone/Acetaminophen (Percocet 5/325 Mg Tab) 1 tab PO Q4 PRN PRN Reason: Pain, Mild (1-3) Stop: 11/14/18 13:07 Saccharomyces Boulardii (Florastor) 250 mg PO BID [facility] Last Admin: 11/13/18 16:45 Dose: 250 mg Silver Sulfadiazine (Silvadene 1% 20 Gm) 0 ea TOP DAILY [facility] Last Admin: 11/13/18 16:31 Dose: Not Given Vancomycin HCl (Vancocin (Oral/Rectal Use)) 250 mg PO Q6H [facility]; Protocol Last Admin: 11/14/18 05:31 Dose: 250 mg - Labs Labs: 11/14/18 06:45 11/14/18 06:45 - Constitutional Appears: Non-toxic, No Acute Distress - Head Exam Head Exam: ATRAUMATIC, NORMOCEPHALIC - Extremities Exam Additional comments: VASC: DP and PT 2/4, temperature gradient warm to warm to bilateral lower extremity, CFT < 3 seconds, edema noted to the anterior lateral aspect of the left lower extremity ORTHO: MMT is 5/5 in all four compartments, collapsed arch on left secondary to charcot deformity NEURO: gross and protective sensation intact DERM: LLE ulceration appreciated to the 5th metatarsal , approximately 2.0x1.5x.5cm, and lateral malleolus, approximately 2.5x1x.2cm, with mixed fib stuart/granular base, mild serous/sanginous drainage appreciated, no purulence expressed at this time. RLE ulceration appreciated to the anterior aspect of the right leg measuring approximately 8cm x3cm x.2 cm, with fibrous base, no drainage at this time, no purulence expressed. Mild erythema appreciated kassandra- wound bilaterally. - Neurological Exam Neurological Exam: Alert, Awake, Oriented x3 - Psychiatric Exam Psychiatric exam: Normal Affect, Normal Mood Assessment and Plan - Assessment and Plan (Free Text) Assessment: 28 year old male patient, with PMHx of DMI, HTN, with b/l lower extremity wounds secondary to diabetes Plan: Patient seen and evaluated Discussed with attending, Dr. Freedman Wound culture L foot; Gram + Cocci L ankle and foot xrays ordered; Findings consistent with Charcot joint. Destructive changes of midfoot bones as well as the distal margins of the tibia and fibular. Note that superimposed infection-chronic OM not excluded Local wound care; jocelynn xeroform, DSD Vasc consulted; reccs appreciated ID consulted; reccs appreciated Plan for debridement of R leg ulceration tomorrow morning with Dr. Freedman Please medically optimize patient Please provide medical clearance for wound debridement
[2018-11-14] MEDS: Insulin Lispro (humaLOG) 100 Units/ml Inj SC SCH ×4 (08:23→22:43)
--- NOTE | 2018-11-14 09:01 | CP.PCM.PN ---
Subjective - Date & Time of Evaluation Date of Evaluation: 11/14/18 Time of Evaluation: 09:02 - Subjective Subjective: ONE EPISODE OF DIARRHEA LESS LEG PAINS LABS REVIEWED--CR IMPROVING VSS Objective - Vital Signs/Intake and Output Vital Signs (last 24 hours): Temp Pulse Resp BP Pulse Ox 97.9 F 70 20 131/91 H 100 11/14/18 08:38 11/14/18 08:38 11/14/18 08:38 11/14/18 08:38 11/14/18 08:38 - Medications Medications: Current Medications Acetaminophen (Tylenol 325mg Tab) 650 mg PO Q4 PRN PRN Reason: Fever >100.4 F Amlodipine Besylate (Norvasc) 10 mg PO DAILY [facility] Last Admin: 11/13/18 11:00 Dose: 10 mg Clonidine HCl (Catapres) 0.2 mg PO TID [facility] Last Admin: 11/13/18 16:52 Dose: 0.2 mg Metronidazole (Flagyl 500mg/100ml Ns) 100 mls @ 100 mls/hr IVPB Q8 [facility]; Protocol Last Admin: 11/14/18 00:26 Dose: 100 mls/hr Vancomycin HCl 1 gm/ Sodium (Chloride) 250 mls @ 166.667 mls/hr IVPB Q24H [facility]; Protocol Last Admin: 11/13/18 14:10 Dose: 166.667 mls/hr Insulin Detemir (Levemir) 30 units SC HS [facility] Last Admin: 11/13/18 21:45 Dose: 30 units Insulin Human Lispro (Humalog) 0 units SC ACHS [facility]; Protocol Last Admin: 11/13/18 21:44 Dose: Not Given Ketorolac Tromethamine (Toradol) 30 mg IVP Q6 PRN PRN Reason: Pain, moderate (4-7) Metoprolol Tartrate (Lopressor) 100 mg PO BID [facility] Last Admin: 11/13/18 16:52 Dose: 100 mg Ondansetron HCl (Zofran Inj) 4 mg IVP Q4 PRN PRN Reason: Nausea/Vomiting Last Admin: 11/13/18 17:05 Dose: 4 mg Oxycodone/Acetaminophen (Percocet 5/325 Mg Tab) 1 tab PO Q4 PRN PRN Reason: Pain, Mild (1-3) Stop: 11/14/18 13:07 Saccharomyces Boulardii (Florastor) 250 mg PO BID [facility] Last Admin: 11/13/18 16:45 Dose: 250 mg Silver Sulfadiazine (Silvadene 1% 20 Gm) 0 ea TOP DAILY [facility] Last Admin: 11/13/18 16:31 Dose: Not Given Vancomycin HCl (Vancocin (Oral/Rectal Use)) 250 mg PO Q6H [facility]; Protocol Last Admin: 11/14/18 05:31 Dose: 250 mg - Labs Labs: 11/14/18 06:45 11/14/18 06:45 - Constitutional Appears: Well - Head Exam Head Exam: ATRAUMATIC, NORMAL INSPECTION, NORMOCEPHALIC - Eye Exam Eye Exam: EOMI, Normal appearance, PERRL Pupil Exam: NORMAL ACCOMODATION, PERRL - ENT Exam ENT Exam: Mucous Membranes Moist, Normal Exam - Neck Exam Neck Exam: Full ROM, Normal Inspection. absent: Lymphadenopathy - Respiratory Exam Respiratory Exam: Clear to Ausculation Bilateral, NORMAL BREATHING PATTERN - Cardiovascular Exam Cardiovascular Exam: REGULAR RHYTHM, +S1, +S2. absent: Murmur - GI/Abdominal Exam GI & Abdominal Exam: Soft, Normal Bowel Sounds. absent: Tenderness - Rectal Exam Rectal Exam: NORMAL INSPECTION - Extremities Exam Extremities Exam: Full ROM, Tenderness. absent: Joint Swelling, Pedal Edema - Back Exam Back Exam: NORMAL INSPECTION - Neurological Exam Neurological Exam: Alert, Awake, CN II-XII Intact, Normal Gait, Oriented x3 - Psychiatric Exam Psychiatric exam: Normal Affect, Normal Mood - Skin Skin Exam: Dry, Intact, Normal Color, Warm Assessment and Plan - Assessment and Plan (Free Text) Assessment: ACUTE PYELONEPHRITIS DIABETIC FOOT ULCERS UNCONTROLLED DM UNCONTROLLED HTN SEPSIS ACUTE KIDNEY INJURY ANEMIA OF CHRONIC DZ Plan: CONTINUE GENTLE IV HYDRATION RX FOR C.DIF COLITIS FOR SURGICAL DEBRIDEMENT OF LEG/FEET ULCERS IN AM
[2018-11-14] MEDS: Silver Sulfadiazine 1% Cream (20 gm) TOP SCH (09:13)
[2018-11-14] MEDS: Saccharomyces Boulardi 250 mg Cap PO SCH ×2 (10:20→17:42)
[2018-11-14 10:39] LABS: PROTHROMBIN TIME 11.4 Seconds (9.8-13.1)
[2018-11-14 10:42] LABS: PARTIAL THROMBOPLASTIN TIME 30.1 Seconds (25.6-37.1)
--- NOTE | 2018-11-14 14:58 | CP.PCM.PN ---
Subjective - Date & Time of Evaluation Date of Evaluation: 11/14/18 Time of Evaluation: 02:30 - Subjective Subjective: Feels better today Appears more comfortable. Objective - Vital Signs/Intake and Output Vital Signs (last 24 hours): Temp Pulse Resp BP Pulse Ox 97.9 F 71 20 143/90 100 11/14/18 08:38 11/14/18 14:01 11/14/18 08:38 11/14/18 14:01 11/14/18 08:38 - Medications Medications: Current Medications Acetaminophen (Tylenol 325mg Tab) 650 mg PO Q4 PRN PRN Reason: Fever >100.4 F Amlodipine Besylate (Norvasc) 10 mg PO DAILY [facility] Last Admin: 11/14/18 10:20 Dose: 10 mg Clonidine HCl (Catapres) 0.2 mg PO TID [facility] Last Admin: 11/14/18 14:01 Dose: 0.2 mg Metronidazole (Flagyl 500mg/100ml Ns) 100 mls @ 100 mls/hr IVPB Q8 [facility]; Protocol Last Admin: 11/14/18 14:00 Dose: 100 mls/hr Vancomycin HCl 1 gm/ Sodium (Chloride) 250 mls @ 166.667 mls/hr IVPB Q24H [facility]; Protocol Last Admin: 11/14/18 14:00 Dose: 166.667 mls/hr Dextrose/Sodium Chloride (Dextrose 5%/0.45% Ns 1000 Ml) 1,000 mls @ 42 mls/hr IV .[id number] [facility] Stop: 11/15/18 09:05 Insulin Detemir (Levemir) 30 units SC HS [facility] Last Admin: 11/13/18 21:45 Dose: 30 units Insulin Human Lispro (Humalog) 0 units SC ACHS [facility]; Protocol Last Admin: 11/14/18 12:51 Dose: 1 unit Ketorolac Tromethamine (Toradol) 30 mg IVP Q6 PRN PRN Reason: Pain, moderate (4-7) Metoprolol Tartrate (Lopressor) 100 mg PO BID [facility] Last Admin: 11/14/18 10:21 Dose: 100 mg Ondansetron HCl (Zofran Inj) 4 mg IVP Q4 PRN PRN Reason: Nausea/Vomiting Last Admin: 11/13/18 17:05 Dose: 4 mg Saccharomyces Boulardii (Florastor) 250 mg PO BID [facility] Last Admin: 11/14/18 10:20 Dose: 250 mg Silver Sulfadiazine (Silvadene 1% 20 Gm) 0 ea TOP DAILY [facility] Last Admin: 11/13/18 16:31 Dose: Not Given Vancomycin HCl (Vancocin (Oral/Rectal Use)) 250 mg PO Q6H [facility]; Protocol Last Admin: 11/14/18 10:22 Dose: 250 mg - Labs Labs: 11/14/18 06:45 11/14/18 06:45 PT 11.4 Seconds (9.8-13.1) 11/14/18 09:15 INR 1.0 11/14/18 09:15 APTT 30.1 Seconds (25.6-37.1) 11/14/18 09:15 - Constitutional Appears: No Acute Distress - Head Exam Head Exam: ATRAUMATIC, NORMOCEPHALIC - Eye Exam Additional comments: Conjunctiva pale - Neck Exam Neck Exam: Normal Inspection - Respiratory Exam Respiratory Exam: NORMAL BREATHING PATTERN - GI/Abdominal Exam GI & Abdominal Exam: Soft - Extremities Exam Additional comments: Both legs dressed Assessment and Plan - Assessment and Plan (Free Text) Assessment: Stage 1V kidney dis, Diabetic nephropathy. Renal function is stable HTN BP control is improving C.diff colitis B/L leg ulcers Plan: Continue to monitor renal function & BP.
[2018-11-14] MEDS: Insulin Detemir 100 Units/ml Inj SC SCH (22:45)
[2018-11-14] MEDS ORDERED: Dextrose 5%/0.45% NS 1,000 ML IV SCH (23:50)
[2018-11-15] MEDS: Vancomycin 500 mg (Oral/Rectal USE) PO SCH ×5 (00:05→22:30)
[2018-11-15] MEDS: metroNIDAZOLE 500mg/100ml NS 100 ML IVPB SCH ×3 (06:37→21:40)
[2018-11-15] MEDS: Insulin Lispro (humaLOG) 100 Units/ml Inj SC SCH ×4 (08:45→22:00)
--- NOTE | 2018-11-15 09:20 | CP.PCM.PN ---
Subjective - Date & Time of Evaluation Date of Evaluation: 11/15/18 Time of Evaluation: 13:04 - Subjective Subjective: Jus Wagoner, PGY-1, Cardiology Progress Note for Dr. Read Patient seen and evaluated at bedside. Patient had no acute overnight events. Patient went for wound debridement today. Patient has no acute complaints at this time. Objective - Vital Signs/Intake and Output Vital Signs (last 24 hours): Temp Pulse Resp BP Pulse Ox 97.9 F 75 20 149/99 H 100 11/14/18 23:56 11/14/18 23:56 11/14/18 23:56 11/14/18 23:56 11/14/18 23:56 - Medications Medications: Current Medications Acetaminophen (Tylenol 325mg Tab) 650 mg PO Q4 PRN PRN Reason: Fever >100.4 F Amlodipine Besylate (Norvasc) 10 mg PO DAILY [facility] Last Admin: 11/14/18 10:20 Dose: 10 mg Clonidine HCl (Catapres) 0.2 mg PO TID [facility] Last Admin: 11/14/18 17:48 Dose: 0.2 mg Vancomycin HCl 1 gm/ Sodium (Chloride) 250 mls @ 166.667 mls/hr IVPB Q24H [facility]; Protocol Last Admin: 11/14/18 14:00 Dose: 166.667 mls/hr Metronidazole (Flagyl 500mg/100ml Ns) 100 mls @ 100 mls/hr IVPB Q8@0600,1400,2200 [facility]; Protocol Last Admin: 11/15/18 06:37 Dose: 100 mls/hr Insulin Detemir (Levemir) 30 units SC HS [facility] Last Admin: 11/14/18 22:45 Dose: 30 units Insulin Human Lispro (Humalog) 0 units SC ACHS [facility]; Protocol Last Admin: 11/14/18 22:43 Dose: Not Given Ketorolac Tromethamine (Toradol) 30 mg IVP Q6 PRN PRN Reason: Pain, moderate (4-7) Last Admin: 11/14/18 21:42 Dose: 30 mg Metoprolol Tartrate (Lopressor) 100 mg PO BID [facility] Last Admin: 11/14/18 17:47 Dose: 100 mg Ondansetron HCl (Zofran Inj) 4 mg IVP Q4 PRN PRN Reason: Nausea/Vomiting Last Admin: 11/15/18 00:24 Dose: 4 mg Saccharomyces Boulardii (Florastor) 250 mg PO BID [facility] Last Admin: 11/14/18 17:42 Dose: 250 mg Silver Sulfadiazine (Silvadene 1% 20 Gm) 0 ea TOP DAILY [facility] Last Admin: 11/14/18 09:13 Dose: Not Given Vancomycin HCl (Vancocin (Oral/Rectal Use)) 250 mg PO Q6H [facility]; Protocol Last Admin: 11/15/18 04:00 Dose: Not Given - Labs Labs: 11/14/18 06:45 11/14/18 06:45 PT 11.4 Seconds (9.8-13.1) 11/14/18 09:15 INR 1.0 11/14/18 09:15 APTT 30.1 Seconds (25.6-37.1) 11/14/18 09:15 - Constitutional Appears: Well, Non-toxic, No Acute Distress - Head Exam Head Exam: ATRAUMATIC, NORMAL INSPECTION, NORMOCEPHALIC - Eye Exam Eye Exam: EOMI, Normal appearance, PERRL - ENT Exam ENT Exam: Mucous Membranes Moist - Respiratory Exam Respiratory Exam: Clear to Auscultation Bilateral, NORMAL BREATHING PATTERN - Cardiovascular Exam Cardiovascular Exam: REGULAR RHYTHM, RRR, +S1, +S2 - GI/Abdominal Exam GI & Abdominal Exam: Normal Bowel Sounds, Soft. absent: Tenderness - Extremities Exam Extremities exam: Positive for: full ROM - Neurological Exam Neurological exam: Alert, CN II-XII Intact, Oriented x3 - Skin Skin Exam: Dry, Intact Additional comments: bilateral lower extremity wounds Assessment and Plan - Assessment and Plan (Free Text) Assessment: Bilateral lower extremity ulcers likely 2/2 to uncontrolled DM Hypertension CORNEL on CKD Mild Cystitis Plan: Bilateral lower extremity ulcers likely 2/2 to uncontrolled DM Hypertension CORNEL on CKD Mild Cystitis EKG: NSR UA: negative LE and nitrates Abdominal CT: mild cystitis Renal ultrasound: unremarkable Hgb: 9.9 from 9.1 at baseline BUN/Cr 11/14: 39/2.5 HgbA1c: 7.8 Blood pressure has ranged from 149/99 to 163/100 Arterial duplex of bilateral lower extremities to evaluate for significant peripheral vascular disease. Medications: Norvasc 10 mg daily Clonidine 0.2 mg TID Zestril 40 mg daily Lopressor 100 mg BID Levemir, Lispro
--- NOTE | 2018-11-15 09:38 | CP.PCM.PN ---
Subjective - Date & Time of Evaluation Date of Evaluation: 11/15/18 Time of Evaluation: 09:40 - Subjective Subjective: NO NEW COMPLAINTS VSS SCHEDULED FOR FOOT WOUND DEBRIDEMENT TODAY Objective - Vital Signs/Intake and Output Vital Signs (last 24 hours): Temp Pulse Resp BP Pulse Ox 97.9 F 75 20 149/99 H 100 11/14/18 23:56 11/14/18 23:56 11/14/18 23:56 11/14/18 23:56 11/14/18 23:56 - Medications Medications: Current Medications Acetaminophen (Tylenol 325mg Tab) 650 mg PO Q4 PRN PRN Reason: Fever >100.4 F Amlodipine Besylate (Norvasc) 10 mg PO DAILY [facility] Last Admin: 11/14/18 10:20 Dose: 10 mg Clonidine HCl (Catapres) 0.2 mg PO TID [facility] Last Admin: 11/14/18 17:48 Dose: 0.2 mg Vancomycin HCl 1 gm/ Sodium (Chloride) 250 mls @ 166.667 mls/hr IVPB Q24H [facility]; Protocol Last Admin: 11/14/18 14:00 Dose: 166.667 mls/hr Metronidazole (Flagyl 500mg/100ml Ns) 100 mls @ 100 mls/hr IVPB Q8@0600,1400,2200 [facility]; Protocol Last Admin: 11/15/18 06:37 Dose: 100 mls/hr Insulin Detemir (Levemir) 30 units SC HS [facility] Last Admin: 11/14/18 22:45 Dose: 30 units Insulin Human Lispro (Humalog) 0 units SC ACHS [facility]; Protocol Last Admin: 11/14/18 22:43 Dose: Not Given Ketorolac Tromethamine (Toradol) 30 mg IVP Q6 PRN PRN Reason: Pain, moderate (4-7) Last Admin: 11/14/18 21:42 Dose: 30 mg Metoprolol Tartrate (Lopressor) 100 mg PO BID [facility] Last Admin: 11/14/18 17:47 Dose: 100 mg Ondansetron HCl (Zofran Inj) 4 mg IVP Q4 PRN PRN Reason: Nausea/Vomiting Last Admin: 11/15/18 00:24 Dose: 4 mg Saccharomyces Boulardii (Florastor) 250 mg PO BID [facility] Last Admin: 11/14/18 17:42 Dose: 250 mg Silver Sulfadiazine (Silvadene 1% 20 Gm) 0 ea TOP DAILY [facility] Last Admin: 11/14/18 09:13 Dose: Not Given Vancomycin HCl (Vancocin (Oral/Rectal Use)) 250 mg PO Q6H [facility]; Protocol Last Admin: 11/15/18 04:00 Dose: Not Given - Labs Labs: 11/14/18 06:45 11/14/18 06:45 PT 11.4 Seconds (9.8-13.1) 11/14/18 09:15 INR 1.0 11/14/18 09:15 APTT 30.1 Seconds (25.6-37.1) 11/14/18 09:15 - Constitutional Appears: No Acute Distress - Head Exam Head Exam: ATRAUMATIC, NORMAL INSPECTION, NORMOCEPHALIC - Eye Exam Eye Exam: EOMI, Normal appearance, PERRL Pupil Exam: NORMAL ACCOMODATION, PERRL - ENT Exam ENT Exam: Mucous Membranes Moist, Normal Exam - Neck Exam Neck Exam: Full ROM, Normal Inspection. absent: Lymphadenopathy - Respiratory Exam Respiratory Exam: Clear to Ausculation Bilateral, NORMAL BREATHING PATTERN - Cardiovascular Exam Cardiovascular Exam: REGULAR RHYTHM, +S1, +S2. absent: Murmur - GI/Abdominal Exam GI & Abdominal Exam: Soft, Normal Bowel Sounds. absent: Tenderness - Rectal Exam Rectal Exam: NORMAL INSPECTION - Extremities Exam Extremities Exam: Full ROM, Normal Capillary Refill, Normal Inspection, Tenderness. absent: Joint Swelling, Pedal Edema Additional comments: DIABETIC FEET ULCERS - Back Exam Back Exam: NORMAL INSPECTION - Neurological Exam Neurological Exam: Alert, Awake, CN II-XII Intact, Normal Gait, Oriented x3 - Psychiatric Exam Psychiatric exam: Normal Affect, Normal Mood - Skin Skin Exam: Dry, Intact, Normal Color, Warm Assessment and Plan - Assessment and Plan (Free Text) Assessment: ACUTE PYELONEPHRITIS FOOT ULCERS RENAL CALCULI/COLIC DM HTN SEPSIS Plan: CONTINUE PRESENT RX FOR PODIATRY SURGERY TODAY MEDICALLY CLEARED FOR SURGERY JUICE STANDARDIZER FOR APPROPRIATE DISPOSITION
--- NOTE | 2018-11-15 09:54 | CP.PCM.PN ---
Subjective - Date & Time of Evaluation Date of Evaluation: 11/15/18 Time of Evaluation: 09:52 - Subjective Subjective: Podiatry Progress Note: Dr. Freedman 28 year old male patient seen and evaluated at bedside for B/L lower extremity ulcerations with L charcot deformity. Patient resting comfortably and in NAD. He denies any pain to b/l lower extremities. He is aware of planned surgical procedure today and does not have any questions or concerns at this time. He notes that she has remained NPO past midnight. Denies N/F/V/SOB. Objective - Vital Signs/Intake and Output Vital Signs (last 24 hours): Temp Pulse Resp BP Pulse Ox 97.9 F 75 20 149/99 H 100 11/14/18 23:56 11/14/18 23:56 11/14/18 23:56 11/14/18 23:56 11/14/18 23:56 - Medications Medications: Current Medications Acetaminophen (Tylenol 325mg Tab) 650 mg PO Q4 PRN PRN Reason: Fever >100.4 F Amlodipine Besylate (Norvasc) 10 mg PO DAILY [facility] Last Admin: 11/14/18 10:20 Dose: 10 mg Clonidine HCl (Catapres) 0.2 mg PO TID [facility] Last Admin: 11/14/18 17:48 Dose: 0.2 mg Vancomycin HCl 1 gm/ Sodium (Chloride) 250 mls @ 166.667 mls/hr IVPB Q24H [facility]; Protocol Last Admin: 11/14/18 14:00 Dose: 166.667 mls/hr Metronidazole (Flagyl 500mg/100ml Ns) 100 mls @ 100 mls/hr IVPB Q8@0600,1400,2200 [facility]; Protocol Last Admin: 11/15/18 06:37 Dose: 100 mls/hr Insulin Detemir (Levemir) 30 units SC HS [facility] Last Admin: 11/14/18 22:45 Dose: 30 units Insulin Human Lispro (Humalog) 0 units SC ACHS [facility]; Protocol Last Admin: 11/14/18 22:43 Dose: Not Given Ketorolac Tromethamine (Toradol) 30 mg IVP Q6 PRN PRN Reason: Pain, moderate (4-7) Last Admin: 11/14/18 21:42 Dose: 30 mg Metoprolol Tartrate (Lopressor) 100 mg PO BID [facility] Last Admin: 11/14/18 17:47 Dose: 100 mg Ondansetron HCl (Zofran Inj) 4 mg IVP Q4 PRN PRN Reason: Nausea/Vomiting Last Admin: 11/15/18 00:24 Dose: 4 mg Saccharomyces Boulardii (Florastor) 250 mg PO BID [facility] Last Admin: 11/14/18 17:42 Dose: 250 mg Silver Sulfadiazine (Silvadene 1% 20 Gm) 0 ea TOP DAILY [facility] Last Admin: 11/14/18 09:13 Dose: Not Given Vancomycin HCl (Vancocin (Oral/Rectal Use)) 250 mg PO Q6H [facility]; Protocol Last Admin: 11/15/18 04:00 Dose: Not Given - Labs Labs: 11/14/18 06:45 11/14/18 06:45 PT 11.4 Seconds (9.8-13.1) 11/14/18 09:15 INR 1.0 11/14/18 09:15 APTT 30.1 Seconds (25.6-37.1) 11/14/18 09:15 - Constitutional Appears: Non-toxic, No Acute Distress - Head Exam Head Exam: ATRAUMATIC, NORMOCEPHALIC - Extremities Exam Additional comments: VASC: DP and PT 2/4, temperature gradient warm to warm to bilateral lower extremity, CFT < 3 seconds, edema noted to the anterior lateral aspect of the left lower extremity ORTHO: MMT is 5/5 in all four compartments, collapsed arch on left secondary to charcot deformity NEURO: gross and protective sensation intact DERM: LLE ulceration appreciated to the 5th metatarsal , approximately 2.0x1.5x.5cm, and lateral malleolus, approximately 2.5x1x.2cm, with mixed fibrous/granular base, mild serous/sanginous drainage appreciated, no purulence expressed at this time. RLE ulceration appreciated to the anterior aspect of the right leg measuring approximately 8cm x3cm x.2 cm, with fibrous base, no drainage at this time, no purulence expressed, down to the level of fat/muscle, no bone exposure.. Mild erythema appreciated kassandra-wound bilaterally. - Neurological Exam Neurological Exam: Alert, Awake, Oriented x3 - Psychiatric Exam Psychiatric exam: Normal Affect, Normal Mood Assessment and Plan - Assessment and Plan (Free Text) Assessment: 28 year old male patient, with PMHx of DMI, HTN, with b/l lower extremity wounds secondary to diabetes Plan: Patient seen and evaluated Discussed with attending, Dr. Freedman Blood culture; Streptococcus Species L ankle and foot xrays ordered; Findings consistent with Charcot joint. Destructive changes of midfoot bones as well as the distal margins of the tibia and fibular. Note that superimposed infection-chronic OM not excluded Local wound care; silvadene, xeroform, DSD Vasc consulted; reccs appreciated ID consulted; reccs appreciated Plan for debridement of R leg ulceration today with graft harvest with Dr. Freedman
--- NOTE | 2018-11-15 09:58 | PQF ---
PROVIDER RESPONSE TEXT: C.DIF COLITIS--PRESENT ON ADMISSION THERAPY STARTED BY ID REVIEWER QUERY TEXT: Conflicting Documentation Clarification There is documentation of C Diff + and STOOL C.DIF TOXIN NEGATIVE BUT AG POSITIVE--NO INDICATION OF ACUTE CDIF DZ--NO NEED FOR THERAPY. Medication includes: Vancomycin PO, Vancomycin IV, Flagyl IV and Ancef IV. Please clarify if the diagnosis of C Difficile should be coded for this admission or not. A single mention or documentation of multiple diagnoses for the same clinical presentation appears in the record. Please clarify the diagnosis/diagnoses. Please also document if the condition is: -- Confirmed and current -- Confirmed, treated and resolved -- Ruled out -- Other, please specify The patient's Clinical Indicators include: Admitted with flank pain, + diarrhea. Diagnoses include acute pyelonephritis C Difficile: Positive antigen. IVAB Query created by: Misty Thomas on 11/14/2018 8:43 AM Electronically signed by: Aden Wahl MD 11/15/2018 9:54 AM
[2018-11-15] MEDS ORDERED: Lidocaine 1% Inj (20ml) IJ ONE (10:06)
[2018-11-15] MEDS ORDERED: Bupivacaine 0.25% Inj(30mL) IJ ONE (10:06)
[2018-11-15] MEDS: Saccharomyces Boulardi 250 mg Cap PO SCH ×2 (10:32→17:53)
[2018-11-15] MEDS: Dextrose 50% SYRINGE Inj (50 ml) IVP ONE ×3 (11:33→17:41)
[2018-11-15] MEDS ORDERED: Dextrose 50% SYRINGE Inj (50 ml) ONE (11:33)
[2018-11-15] MEDS ORDERED: Propofol 10 mg/ml Inj (20 ML) ONE (11:55)
[2018-11-15] MEDS ORDERED: Bupivacaine 0.5% Inj(30mL) ONE (12:11)
[2018-11-15] MEDS ORDERED: Midazolam 2 MG/2 ML VIAL ONE (12:16)
[2018-11-15] MEDS ORDERED: Lactated Ringer's 1,000 ML IV ONE (12:20)
[2018-11-15] MEDS ORDERED: metroNIDAZOLE 500mg/100ml NS IVPB ONE (12:45)
[2018-11-15] MEDS ORDERED: Vancomycin 1 g Inj IVPB ONE (12:50)
[2018-11-15] MEDS ORDERED: Ropivacaine 0.5% 30ML IV ONE (13:05)
--- NOTE | 2018-11-15 13:51 | PCM.SURG1 ---
Surgeon's Initial Post Op Note - Surgeon's Notes Surgeon: Dr. Freedman, DPM [employer] Consultant: Dr. Vera Miranda, PGY1 Type of Anesthesia: General Endo Anesthesia Administered By: Dr. Timmons Pre-Operative Diagnosis: Right leg burn wound Operative Findings: see dictation. I: 3-0 Vicryl, 3-0 Prolene Post-Operative Diagnosis: same Operation Performed: Right leg wound debridement wiht Misonix, harvest of full thickness skin graft right lateral leg Specimen/Specimens Removed: full thickness skin graft Estimated Blood Loss: EBL {In ML}: 15 Blood Products Given: N/A Drains Used: No Drains Post-Op Condition: Good Date of Surgery/Procedure: 11/15/18 Time of Surgery/Procedure: 13:51
[2018-11-15] MEDS ORDERED: HYDROmorphone 0.5 mg/0.5 ml ISec IVP PRN (14:08)
[2018-11-15] MEDS ORDERED: Dexamethasone 4 mg/1 ml IVP PRN (14:08)
[2018-11-15] MEDS: Silver Sulfadiazine 1% Cream (20 gm) TOP SCH (17:42)
--- NOTE | 2018-11-15 19:05 | PCM.OP ---
Operative Report - Operative Report Date of Surgery/Procedure: 11/15/18 Time of Surgery/Procedure: 01:00 Surgeon: Dr. Moe DPM Anesthesia/Sedation: Anesthesiologist: Dr. Timmons Anesthesia: General Anesthesia with Popliteal Block Pre-Operative Diagnosis: Right anterior Leg Burn Wound Post-Operative Diagnosis: same as above Indication for Surgery: Name of Procedure: 1) Right Anterior Leg Wound Debridement with Misonix 2) Right Lateral Leg [place] of Full-Thickness Skin Graft Indications:The patient is a 28 year-old male with the above diagnoses. The patient has exhausted all conservative treatment at this time and now requires surgical intervention. The patient signed the consent after careful explanation of risks, benefits, complications and alternatives for surgical procedure. No guarantees were given nor implied. NPO status was confirmed prior to taking patient to the OR Operative Findings: Preparation: The patient was brought in to the operating room and placed on the operating room table in a supine position. Timeout was performed for identification of the correct patient and procedure. Right foot and leg were then prepped and draped in normal sterile manner and the procedure began.No tourniquet was used during the procedure. Procedure/Operation Description: Procedure 1: Attention was then drawn to the right anterior leg wound measuring 10 cm X 7 cm. The wound was debrided removing all nonviable tissue with an #10 blade. Then Misonix on Power 7 was utilized until granular tissue was noted. The wound was debrided with care being taken toavoidneurovascular structure. Good bleeding was noted to the wound bed. The wound was then copiously irrigiated with sterile saline.The wound was dressed with xerform, 4x4 gauze, Kerlix and CESAR bandage Procedure 2: Attention was then drawn to the lateral aspect of the right leg at the level of the mid-calf. A full-thickness elliptical incision measuring 5 cm X 2 cm was made using a #15 cammie. All layers of hte skin from the epidermis to the subcutaneous fat were excised. The graft was then passed off the operating field and placed in sterile specimen cup. A 40 mL of crystalloid solution and o.5 mL of gentamicin were added to the graft and properly passed off the sterile field and in to the appropriate specimen bag to be shipped for processing. The incision site was copiously flushed with sterile saline, and subcutaneous tissue was sutured using 3-0 Vicryl. The skin was then re-approximated using 3-0 Prolene. The harvest site was dressed with xeroform, 4x4 gauze, Kerlix and CESAR bandage Estimated Blood Loss: 15 mL Complications: none Specimen: Full thickness skin graft for Polarity TE Discharge & Condition: Postoperative Condition: The patient tolerated the anesthesia and procedure well and was escorted to the recovery room with neurovascular status intact to the right leg and vital signs stable. Patient will remain in house and podiatry will continue to follow. Patient is scheduled for second procedure on Wednesday11/18/18 for deployment of the graft.
[2018-11-15] MEDS ORDERED: Enalaprilat 2.5 MG/2 ML IVP STA (19:09)
[2018-11-15] MEDS ORDERED: EnalaprilAT 1.25 mg/ml Inj ONE (19:12)
[2018-11-15] MEDS: Insulin Detemir 100 Units/ml Inj SC SCH (22:00)
[2018-11-15] MEDS: Lactated Ringer's 1,000 ML IV SCH (22:00)
[2018-11-16] MEDS: metroNIDAZOLE 500mg/100ml NS 100 ML IVPB SCH ×3 (05:23→21:54)
[2018-11-16] MEDS: Vancomycin 500 mg (Oral/Rectal USE) PO SCH ×4 (05:31→21:54)
[2018-11-16] MEDS: Insulin Lispro (humaLOG) 100 Units/ml Inj SC SCH ×4 (07:50→21:56)
--- NOTE | 2018-11-16 07:50 | CP.PCM.PN ---
<Jus Wagoner - Last Filed: 11/16/18 14:31> Subjective - Date & Time of Evaluation Date of Evaluation: 11/16/18 Time of Evaluation: 07:47 - Subjective Subjective: Jus Wagoner, PGY-1, Cardiology Progress Note for Dr. Read Patient seen and evaluated at bedside. Patient had 2 episodes of vomiting overnight. Patient has no acute complaints at this time. He reports bilateral lower extremity pain. Objective - Vital Signs/Intake and Output Vital Signs (last 24 hours): Temp Pulse Resp BP Pulse Ox 97.7 F 77 20 133/86 100 11/16/18 07:37 11/16/18 07:37 11/16/18 07:37 11/16/18 07:37 11/16/18 07:37 - Medications Medications: Current Medications Acetaminophen (Tylenol 325mg Tab) 650 mg PO Q4 PRN PRN Reason: Fever >100.4 F Amlodipine Besylate (Norvasc) 10 mg PO DAILY [facility] Last Admin: 11/15/18 11:39 Dose: 10 mg Clonidine HCl (Catapres) 0.2 mg PO TID [facility] Last Admin: 11/15/18 17:53 Dose: 0.2 mg Vancomycin HCl 1 gm/ Sodium (Chloride) 250 mls @ 166.667 mls/hr IVPB Q24H [facility]; Protocol Last Admin: 11/15/18 17:43 Dose: Not Given Metronidazole (Flagyl 500mg/100ml Ns) 100 mls @ 100 mls/hr IVPB Q8@0600,1400,2200 [facility]; Protocol Last Admin: 11/16/18 05:23 Dose: 100 mls/hr Lactated Ringer's (Lactated Ringer's) 1,000 mls @ 125 mls/hr IV .Q8H [facility] Last Admin: 11/15/18 22:00 Dose: Not Given Insulin Detemir (Levemir) 30 units SC HS [facility] Last Admin: 11/15/18 22:00 Dose: 30 units Insulin Human Lispro (Humalog) 0 units SC ACHS [facility]; Protocol Last Admin: 11/15/18 22:00 Dose: Not Given Ketorolac Tromethamine (Toradol) 30 mg IVP Q6 PRN PRN Reason: Pain, moderate (4-7) Last Admin: 11/14/18 21:42 Dose: 30 mg Metoprolol Tartrate (Lopressor) 100 mg PO BID [facility] Last Admin: 11/15/18 17:52 Dose: 100 mg Ondansetron HCl (Zofran Inj) 4 mg IVP Q4 PRN PRN Reason: Nausea/Vomiting Last Admin: 11/16/18 05:21 Dose: 4 mg Saccharomyces Boulardii (Florastor) 250 mg PO BID [facility] Last Admin: 11/15/18 17:53 Dose: 250 mg Silver Sulfadiazine (Silvadene 1% 20 Gm) 0 ea TOP DAILY [facility] Last Admin: 11/15/18 17:42 Dose: Not Given Vancomycin HCl (Vancocin (Oral/Rectal Use)) 250 mg PO Q6H [facility]; Protocol Last Admin: 11/16/18 05:31 Dose: Not Given - Labs Labs: 11/14/18 06:45 11/14/18 06:45 PT 11.4 Seconds (9.8-13.1) 11/14/18 09:15 INR 1.0 11/14/18 09:15 APTT 30.1 Seconds (25.6-37.1) 11/14/18 09:15 - Constitutional Appears: Well, Non-toxic, No Acute Distress - Head Exam Head Exam: ATRAUMATIC, NORMAL INSPECTION, NORMOCEPHALIC - Eye Exam Eye Exam: EOMI, Normal appearance, PERRL - ENT Exam ENT Exam: Mucous Membranes Moist - Respiratory Exam Respiratory Exam: Clear to Auscultation Bilateral, NORMAL BREATHING PATTERN - Cardiovascular Exam Cardiovascular Exam: REGULAR RHYTHM, RRR, +S1, +S2 - GI/Abdominal Exam GI & Abdominal Exam: Normal Bowel Sounds, Soft. absent: Tenderness - Extremities Exam Extremities exam: Positive for: full ROM - Neurological Exam Neurological exam: Alert, CN II-XII Intact, Oriented x3 - Skin Skin Exam: Dry, Intact Additional comments: bilateral lower extremity wounds Assessment and Plan - Assessment and Plan (Free Text) Assessment: Bilateral lower extremity ulcers likely 2/2 to uncontrolled DM Hypertension CORNEL on CKD Mild Cystitis Plan: Bilateral lower extremity ulcers likely 2/2 to uncontrolled DM Hypertension CORNEL on CKD Mild Cystitis EKG: NSR UA: negative LE and nitrates Abdominal CT: mild cystitis Renal ultrasound: unremarkable Hgb: 9.9 on 11/14 from 9.1 at baseline BUN/Cr 11/14: 39/2.5 HgbA1c: 7.8 Blood pressure was 133/86 this morning Follow up Arterial duplex of bilateral lower extremities to evaluate for significant peripheral vascular disease. Medications: Norvasc 10 mg daily Clonidine 0.2 mg TID Lopressor 100 mg BID Levemir, Lispro <Cornelius Read - Last Filed: 11/16/18 23:29> Objective - Vital Signs/Intake and Output Vital Signs (last 24 hours): Temp Pulse Resp BP Pulse Ox 97.3 F L 72 18 142/89 18 L 11/16/18 18:00 11/16/18 18:00 11/16/18 16:03 11/16/18 18:00 11/16/18 18:00 - Medications Medications: Current Medications Acetaminophen (Tylenol 325mg Tab) 650 mg PO Q4 PRN PRN Reason: Fever >100.4 F Amlodipine Besylate (Norvasc) 10 mg PO DAILY [facility] Last Admin: 11/16/18 09:08 Dose: 10 mg Clonidine HCl (Catapres) 0.2 mg PO TID [facility] Last Admin: 11/16/18 16:23 Dose: 0.2 mg Dextrose (Dextrose 50% Inj) 0 ml IV STAT PRN; Protocol PRN Reason: Hypoglycemia Protocol Dextrose (Glutose 15) 0 gm PO ONCE PRN; Protocol PRN Reason: Hypoglycemia Protocol Glucagon (Glucagen Diagnostic Kit) 0 mg IM STAT PRN; Protocol PRN Reason: Hypoglycemia Protocol Heparin Sodium (Porcine) (Heparin) 5,000 units SC Q12 [facility]; Protocol Last Admin: 11/16/18 21:58 Dose: 5,000 units Vancomycin HCl 1 gm/ Sodium (Chloride) 250 mls @ 166.667 mls/hr IVPB Q24H [facility]; Protocol Last Admin: 11/16/18 12:41 Dose: Not Given Metronidazole (Flagyl 500mg/100ml Ns) 100 mls @ 100 mls/hr IVPB Q8@0600,1400,2200 [facility]; Protocol Last Admin: 11/16/18 21:54 Dose: 100 mls/hr Lactated Ringer's (Lactated Ringer's) 1,000 mls @ 125 mls/hr IV .Q8H [facility] Last Admin: 11/16/18 21:53 Dose: 125 mls/hr Insulin Detemir (Levemir) 30 units SC HS [facility] Last Admin: 11/16/18 21:55 Dose: 30 units Insulin Human Lispro (Humalog) 0 units SC ACHS [facility]; Protocol Last Admin: 11/16/18 21:56 Dose: Not Given Ketorolac Tromethamine (Toradol) 30 mg IVP Q6 PRN PRN Reason: Pain, moderate (4-7) Last Admin: 11/16/18 09:09 Dose: 30 mg Metoprolol Tartrate (Lopressor) 100 mg PO BID [facility] Last Admin: 11/16/18 16:23 Dose: 100 mg Ondansetron HCl (Zofran Inj) 4 mg IVP Q4 PRN PRN Reason: Nausea/Vomiting Last Admin: 11/16/18 12:11 Dose: 4 mg Saccharomyces Boulardii (Florastor) 250 mg PO BID [facility] Last Admin: 11/16/18 16:19 Dose: 250 mg Silver Sulfadiazine (Silvadene 1% 20 Gm) 0 ea TOP DAILY [facility] Last Admin: 11/16/18 09:09 Dose: Not Given Vancomycin HCl (Vancocin (Oral/Rectal Use)) 250 mg PO Q6H [facility]; Protocol Last Admin: 11/16/18 21:54 Dose: 250 mg - Labs Labs: 11/14/18 06:45 11/14/18 06:45 PT 11.4 Seconds (9.8-13.1) 11/14/18 09:15 INR 1.0 11/14/18 09:15 APTT 30.1 Seconds (25.6-37.1) 11/14/18 09:15 Attending/Attestation - Attestation I have personally seen and examined this patient.: Yes I have fully participated in the care of the patient.: Yes I have reviewed all pertinent clinical information, including history, physical exam and plan: Yes
[2018-11-16] MEDS: Lactated Ringer's 1,000 ML IV SCH ×3 (08:31→21:53)
[2018-11-16] MEDS: Saccharomyces Boulardi 250 mg Cap PO SCH ×2 (09:07→16:19)
[2018-11-16] MEDS: Silver Sulfadiazine 1% Cream (20 gm) TOP SCH (09:09)
--- NOTE | 2018-11-16 10:10 | CP.PCM.PN ---
Subjective - Date & Time of Evaluation Date of Evaluation: 11/16/18 Time of Evaluation: 10:12 - Subjective Subjective: C/O LEG PAIN TODAY DIARRHEA IMPROVED AFEBRILE BP BETTER CONTROLLED Objective - Vital Signs/Intake and Output Vital Signs (last 24 hours): Temp Pulse Resp BP Pulse Ox 97.7 F 77 20 133/86 100 11/16/18 07:37 11/16/18 09:08 11/16/18 07:37 11/16/18 09:08 11/16/18 07:37 - Medications Medications: Current Medications Acetaminophen (Tylenol 325mg Tab) 650 mg PO Q4 PRN PRN Reason: Fever >100.4 F Amlodipine Besylate (Norvasc) 10 mg PO DAILY [facility] Last Admin: 11/16/18 09:08 Dose: 10 mg Clonidine HCl (Catapres) 0.2 mg PO TID [facility] Last Admin: 11/16/18 09:06 Dose: 0.2 mg Vancomycin HCl 1 gm/ Sodium (Chloride) 250 mls @ 166.667 mls/hr IVPB Q24H [facility]; Protocol Last Admin: 11/15/18 17:43 Dose: Not Given Metronidazole (Flagyl 500mg/100ml Ns) 100 mls @ 100 mls/hr IVPB Q8@0600,1400,2200 [facility]; Protocol Last Admin: 11/16/18 05:23 Dose: 100 mls/hr Lactated Ringer's (Lactated Ringer's) 1,000 mls @ 125 mls/hr IV .Q8H [facility] Last Admin: 11/16/18 08:31 Dose: 125 mls/hr Insulin Detemir (Levemir) 30 units SC HS [facility] Last Admin: 11/15/18 22:00 Dose: 30 units Insulin Human Lispro (Humalog) 0 units SC ACHS [facility]; Protocol Last Admin: 11/16/18 07:50 Dose: Not Given Ketorolac Tromethamine (Toradol) 30 mg IVP Q6 PRN PRN Reason: Pain, moderate (4-7) Last Admin: 11/16/18 09:09 Dose: 30 mg Metoprolol Tartrate (Lopressor) 100 mg PO BID [facility] Last Admin: 11/16/18 09:07 Dose: 100 mg Ondansetron HCl (Zofran Inj) 4 mg IVP Q4 PRN PRN Reason: Nausea/Vomiting Last Admin: 11/16/18 05:21 Dose: 4 mg Saccharomyces Boulardii (Florastor) 250 mg PO BID [facility] Last Admin: 11/16/18 09:07 Dose: 250 mg Silver Sulfadiazine (Silvadene 1% 20 Gm) 0 ea TOP DAILY [facility] Last Admin: 11/16/18 09:09 Dose: Not Given Vancomycin HCl (Vancocin (Oral/Rectal Use)) 250 mg PO Q6H [facility]; Protocol Last Admin: 11/16/18 05:31 Dose: Not Given - Labs Labs: 11/14/18 06:45 11/14/18 06:45 PT 11.4 Seconds (9.8-13.1) 11/14/18 09:15 INR 1.0 11/14/18 09:15 APTT 30.1 Seconds (25.6-37.1) 11/14/18 09:15 - Constitutional Appears: Chronically Ill - Head Exam Head Exam: ATRAUMATIC, NORMAL INSPECTION, NORMOCEPHALIC - Eye Exam Eye Exam: EOMI, Normal appearance, PERRL Pupil Exam: NORMAL ACCOMODATION, PERRL - ENT Exam ENT Exam: Mucous Membranes Moist, Normal Exam - Neck Exam Neck Exam: Full ROM, Normal Inspection. absent: Lymphadenopathy - Respiratory Exam Respiratory Exam: Clear to Ausculation Bilateral, NORMAL BREATHING PATTERN - Cardiovascular Exam Cardiovascular Exam: REGULAR RHYTHM, +S1, +S2. absent: Murmur - GI/Abdominal Exam GI & Abdominal Exam: Soft, Normal Bowel Sounds. absent: Tenderness - Rectal Exam Rectal Exam: NORMAL INSPECTION - Extremities Exam Extremities Exam: Full ROM, Normal Capillary Refill, Tenderness. absent: Joint Swelling, Pedal Edema - Back Exam Back Exam: NORMAL INSPECTION - Neurological Exam Neurological Exam: Alert, Awake, CN II-XII Intact, Normal Gait, Oriented x3 - Psychiatric Exam Psychiatric exam: Normal Affect, Normal Mood - Skin Skin Exam: Dry, Intact, Normal Color, Warm Assessment and Plan - Assessment and Plan (Free Text) Assessment: S/P PODIATRY SURGERY HTN DM C.DIF COLITIS--IMPROVED CHRONIC ANEMIA Plan: CONTINUE CURRENT RX FACT CHECKER FOR APPROPRIATE DISPOSITION
--- NOTE | 2018-11-16 10:36 | PCM.ANESB2 ---
Popliteal Nerve Block - Popliteal Nerve Block Date of Procedure: 11/15/18 Anesthesiologist: Angel Timmons Pre-Procedure Diagnosis: Right leg ulcer Post-Procedure Diagnosis: Same Procedure Performed: Popliteal Nerve Block Right - Procedure Popliteal Nerve Block: This procedure was explained to the patient that it is for post-operative pain management. Consent was obtained after a thorough discussion with the patient regarding the benefits and possible complications of local anesthetic block of the sciatic nerve at the popliteal level. The patient was brought to the operating room and standard monitors are applied. Time-out was held with the circulating nurse to confirm the correct surgery and the appropriate block. After completion of the surgery under general anesthesia, patient's operative leg was gently raised and supported and the groove in between the biceps femoris and vastus lateralis muscles was carefully palpated. The skin approximately 8cm above the popliteal crease was then marked. The ultrasound transducer was then applied to the posterior thigh approximately 8cm above the popliteal crease in the transverse plane and the sciatic nerve before its division was visualized lateral to the popliteal artery and in between the bicep femoris and semimembranosus/semitendinosus muscles. After identification, the lateral portion of the thigh was prepped with Chloraprep solution three times. At this point, a # 21 gauge Stimuplex insulated 4 inch needle was inserted into pre-marked area and advanced in a perpendicular direction. The needle was inserted above the ultrasound transducer in-plane towards the sciatic nerve in a [id number] direction. Needle advancement was performed carefully under direct ultrasound visualization. After repeated negative aspiration, __5___cc of __0.5___ % ____ropivacaine___ was injected and this was flowed with __25____ cc of __0.5____% __ropivacaine__. Under ultrasound guidance the local anesthetics were observed surrounding sciatic nerve . The needle was removed intact and sterile dressing was applied. The patient tolerated the popliteal nerve block well with stable vital signs and was subsequently extubated and brought to the recovery room. Procedure performed on 11/15/18
--- NOTE | 2018-11-16 11:32 | CP.PCM.PN ---
Subjective - Date & Time of Evaluation Date of Evaluation: 11/16/18 Time of Evaluation: 08:00 - Subjective Subjective: less diarrhea no fever' Objective - Vital Signs/Intake and Output Vital Signs (last 24 hours): Temp Pulse Resp BP Pulse Ox 97.7 F 77 20 133/86 100 11/16/18 07:37 11/16/18 09:08 11/16/18 07:37 11/16/18 09:08 11/16/18 07:37 - Medications Medications: Current Medications Acetaminophen (Tylenol 325mg Tab) 650 mg PO Q4 PRN PRN Reason: Fever >100.4 F Amlodipine Besylate (Norvasc) 10 mg PO DAILY [facility] Last Admin: 11/16/18 09:08 Dose: 10 mg Clonidine HCl (Catapres) 0.2 mg PO TID [facility] Last Admin: 11/16/18 09:06 Dose: 0.2 mg Heparin Sodium (Porcine) (Heparin) 5,000 units SC Q12 [facility]; Protocol Vancomycin HCl 1 gm/ Sodium (Chloride) 250 mls @ 166.667 mls/hr IVPB Q24H [facility]; Protocol Last Admin: 11/15/18 17:43 Dose: Not Given Metronidazole (Flagyl 500mg/100ml Ns) 100 mls @ 100 mls/hr IVPB Q8@0600 ,1400,2200 [facility]; Protocol Last Admin: 11/16/18 05:23 Dose: 100 mls/hr Lactated Ringer's (Lactated Ringer's) 1,000 mls @ 125 mls/hr IV .Q8H [facility] Last Admin: 11/16/18 08:31 Dose: 125 mls/hr Insulin Detemir (Levemir) 30 units SC HS [facility] Last Admin: 11/15/18 22:00 Dose: 30 units Insulin Human Lispro (Humalog) 0 units SC ACHS [facility]; Protocol Last Admin: 11/16/18 07:50 Dose: Not Given Ketorolac Tromethamine (Toradol) 30 mg IVP Q6 PRN PRN Reason: Pain, moderate (4-7) Last Admin: 11/16/18 09:09 Dose: 30 mg Metoprolol Tartrate (Lopressor) 100 mg PO BID [facility] Last Admin: 11/16/18 09:07 Dose: 100 mg Ondansetron HCl (Zofran Inj) 4 mg IVP Q4 PRN PRN Reason: Nausea/Vomiting Last Admin: 11/16/18 05:21 Dose: 4 mg Saccharomyces Boulardii (Florastor) 250 mg PO BID [facility] Last Admin: 11/16/18 09:07 Dose: 250 mg Silver Sulfadiazine (Silvadene 1% 20 Gm) 0 ea TOP DAILY [facility] Last Admin: 11/16/18 09:09 Dose: Not Given Vancomycin HCl (Vancocin (Oral/Rectal Use)) 250 mg PO Q6H [facility]; Protocol Last Admin: 11/16/18 05:31 Dose: Not Given - Labs Labs: 11/14/18 06:45 11/14/18 06:45 PT 11.4 Seconds (9.8-13.1) 11/14/18 09:15 INR 1.0 11/14/18 09:15 APTT 30.1 Seconds (25.6-37.1) 11/14/18 09:15 - Constitutional Appears: Well - Head Exam Head Exam: ATRAUMATIC, NORMAL INSPECTION, NORMOCEPHALIC - Eye Exam Eye Exam: EOMI, Normal appearance, PERRL Pupil Exam: NORMAL ACCOMODATION, PERRL - ENT Exam ENT Exam: Mucous Membranes Moist, Normal Exam - Neck Exam Neck Exam: Full ROM, Normal Inspection. absent: Lymphadenopathy - Respiratory Exam Respiratory Exam: Clear to Ausculation Bilateral, NORMAL BREATHING PATTERN - Cardiovascular Exam Cardiovascular Exam: REGULAR RHYTHM, +S1, +S2. absent: Murmur - GI/Abdominal Exam GI & Abdominal Exam: Soft, Normal Bowel Sounds. absent: Tenderness - Rectal Exam Rectal Exam: Deferred - Exam Exam: NORMAL INSPECTION Bimanual exam: NORMAL BIMANUAL EXAM - Extremities Exam Extremities Exam: Full ROM, Normal Capillary Refill, Normal Inspection. absent: Joint Swelling, Pedal Edema - Back Exam Back Exam: NORMAL INSPECTION - Neurological Exam Neurological Exam: Alert, Awake, CN II-XII Intact, Normal Gait, Oriented x3 - Psychiatric Exam Psychiatric exam: Normal Affect, Normal Mood - Skin Skin Exam: Dry Additional comments: ulcers defformities bilaterally Assessment and Plan (1) Pyelonephritis Status: Suspected (2) Abdominal pain Status: Acute (3) Abnormal kidney function Status: Acute - Assessment and Plan (Free Text) Assessment: cont rx for c diff and cellulitis
--- NOTE | 2018-11-16 13:08 | CP.PCM.PN ---
Subjective - Date & Time of Evaluation Date of Evaluation: 11/16/18 Time of Evaluation: 13:06 - Subjective Subjective: Podiatry Progress Note: Dr. Freedman 28 year old male patient seen and evaluated at bedside for B/L lower extremity ulcerations with L charcot deformity, POD#1 R leg wound debridement with graft harvest. . Patient resting comfortably and in NAD. Denies N/F/SOB, admits to one episode of vomiting this morning. Objective - Vital Signs/Intake and Output Vital Signs (last 24 hours): Temp Pulse Resp BP Pulse Ox 97.7 F 78 20 148/89 100 11/16/18 08:00 11/16/18 12:39 11/16/18 08:00 11/16/18 12:39 11/16/18 08:00 - Medications Medications: Current Medications Acetaminophen (Tylenol 325mg Tab) 650 mg PO Q4 PRN PRN Reason: Fever >100.4 F Amlodipine Besylate (Norvasc) 10 mg PO DAILY [facility] Last Admin: 11/16/18 09:08 Dose: 10 mg Clonidine HCl (Catapres) 0.2 mg PO TID [facility] Last Admin: 11/16/18 12:39 Dose: 0.2 mg Heparin Sodium (Porcine) (Heparin) 5,000 units SC Q12 [facility]; Protocol Vancomycin HCl 1 gm/ Sodium (Chloride) 250 mls @ 166.667 mls/hr IVPB Q24H [facility]; Protocol Last Admin: 11/16/18 12:41 Dose: Not Given Metronidazole (Flagyl 500mg/100ml Ns) 100 mls @ 100 mls/hr IVPB Q8@0600,1400,2200 [facility]; Protocol Last Admin: 11/16/18 05:23 Dose: 100 mls/hr Lactated Ringer's (Lactated Ringer's) 1,000 mls @ 125 mls/hr IV .Q8H [facility] Last Admin: 11/16/18 08:31 Dose: 125 mls/hr Insulin Detemir (Levemir) 30 units SC HS [facility] Last Admin: 11/15/18 22:00 Dose: 30 units Insulin Human Lispro (Humalog) 0 units SC ACHS [facility]; Protocol Last Admin: 11/16/18 12:40 Dose: Not Given Ketorolac Tromethamine (Toradol) 30 mg IVP Q6 PRN PRN Reason: Pain, moderate (4-7) Last Admin: 11/16/18 09:09 Dose: 30 mg Metoprolol Tartrate (Lopressor) 100 mg PO BID [facility] Last Admin: 11/16/18 09:07 Dose: 100 mg Ondansetron HCl (Zofran Inj) 4 mg IVP Q4 PRN PRN Reason: Nausea/Vomiting Last Admin: 11/16/18 12:11 Dose: 4 mg Saccharomyces Boulardii (Florastor) 250 mg PO BID [facility] Last Admin: 11/16/18 09:07 Dose: 250 mg Silver Sulfadiazine (Silvadene 1% 20 Gm) 0 ea TOP DAILY [facility] Last Admin: 11/16/18 09:09 Dose: Not Given Vancomycin HCl (Vancocin (Oral/Rectal Use)) 250 mg PO Q6H [facility]; Protocol Last Admin: 11/16/18 12:03 Dose: Not Given - Labs Labs: 11/14/18 06:45 11/14/18 06:45 PT 11.4 Seconds (9.8-13.1) 11/14/18 09:15 INR 1.0 11/14/18 09:15 APTT 30.1 Seconds (25.6-37.1) 11/14/18 09:15 - Constitutional Appears: Non-toxic, No Acute Distress - Head Exam Head Exam: ATRAUMATIC, NORMOCEPHALIC - Extremities Exam Additional comments: Surgical dressing left clean, dry, intact No strikethrough - Neurological Exam Neurological Exam: Alert, Awake, Oriented x3 - Psychiatric Exam Psychiatric exam: Normal Affect, Normal Mood Assessment and Plan - Assessment and Plan (Free Text) Assessment: 28 year old male patient, with PMHx of DMI, HTN, with b/l lower extremity wounds secondary to diabetes Plan: Patient seen and evaluated Discussed with attending, Dr. Freedman Blood culture; Streptococcus Species L ankle and foot xrays ordered; Findings consistent with Charcot joint. Destructive changes of midfoot bones as well as the distal margins of the tibia and fibular. Note that superimposed infection-chronic OM not excluded Local wound care; silvadene, xeroform, DSD Vasc consulted; reccs appreciated ID consulted; reccs appreciated Plan for R leg graft deployment on Wednesday with Dr. Freedman
[2018-11-16] MEDS ORDERED: Dextrose 50% SYRINGE Inj (50 ml) IVP ONE (13:31)
[2018-11-16] MEDS ORDERED: Dextrose 50% SYRINGE Inj (50 ml) ONE (13:31)
[2018-11-16] MEDS ORDERED: Dextrose 50% SYRINGE Inj (50 ml) IV PRN (13:36)
[2018-11-16] MEDS ORDERED: Glucagon Recombinant 1 mg Inj IM PRN (13:36)
--- NOTE | 2018-11-16 14:48 | CP.PCM.PN ---
Subjective - Date & Time of Evaluation Date of Evaluation: 11/16/18 Time of Evaluation: 02:30 - Subjective Subjective: Less diarrhea today. C/o leg pain. Objective - Vital Signs/Intake and Output Vital Signs (last 24 hours): Temp Pulse Resp BP Pulse Ox 97.7 F 78 20 148/89 100 11/16/18 08:00 11/16/18 12:39 11/16/18 08:00 11/16/18 12:39 11/16/18 08:00 - Medications Medications: Current Medications Acetaminophen (Tylenol 325mg Tab) 650 mg PO Q4 PRN PRN Reason: Fever >100.4 F Amlodipine Besylate (Norvasc) 10 mg PO DAILY [facility] Last Admin: 11/16/18 09:08 Dose: 10 mg Clonidine HCl (Catapres) 0.2 mg PO TID [facility] Last Admin: 11/16/18 12:39 Dose: 0.2 mg Dextrose (Dextrose 50% Inj) 0 ml IV STAT PRN; Protocol PRN Reason: Hypoglycemia Protocol Dextrose (Glutose 15) 0 gm PO ONCE PRN; Protocol PRN Reason: Hypoglycemia Protocol Glucagon (Glucagen Diagnostic Kit) 0 mg IM STAT PRN; Protocol PRN Reason: Hypoglycemia Protocol Heparin Sodium (Porcine) (Heparin) 5,000 units SC Q12 [facility]; Protocol Vancomycin HCl 1 gm/ Sodium (Chloride) 250 mls @ 166.667 mls/hr IVPB Q24H [facility]; Protocol Last Admin: 11/16/18 12:41 Dose: Not Given Metronidazole (Flagyl 500mg/100ml Ns) 100 mls @ 100 mls/hr IVPB Q8@0600,1400,2200 [facility]; Protocol Last Admin: 11/16/18 05:23 Dose: 100 mls/hr Lactated Ringer's (Lactated Ringer's) 1,000 mls @ 125 mls/hr IV .Q8H [facility] Last Admin: 11/16/18 08:31 Dose: 125 mls/hr Insulin Detemir (Levemir) 30 units SC HS [facility] Last Admin: 11/15/18 22:00 Dose: 30 units Insulin Human Lispro (Humalog) 0 units SC ACHS [facility]; Protocol Last Admin: 11/16/18 12:40 Dose: Not Given Ketorolac Tromethamine (Toradol) 30 mg IVP Q6 PRN PRN Reason: Pain, moderate (4-7) Last Admin: 11/16/18 09:09 Dose: 30 mg Metoprolol Tartrate (Lopressor) 100 mg PO BID [facility] Last Admin: 11/16/18 09:07 Dose: 100 mg Ondansetron HCl (Zofran Inj) 4 mg IVP Q4 PRN PRN Reason: Nausea/Vomiting Last Admin: 11/16/18 12:11 Dose: 4 mg Saccharomyces Boulardii (Florastor) 250 mg PO BID [facility] Last Admin: 11/16/18 09:07 Dose: 250 mg Silver Sulfadiazine (Silvadene 1% 20 Gm) 0 ea TOP DAILY [facility] Last Admin: 11/16/18 09:09 Dose: Not Given Vancomycin HCl (Vancocin (Oral/Rectal Use)) 250 mg PO Q6H [facility]; Protocol Last Admin: 11/16/18 12:03 Dose: Not Given - Labs Labs: 11/14/18 06:45 11/14/18 06:45 PT 11.4 Seconds (9.8-13.1) 11/14/18 09:15 INR 1.0 11/14/18 09:15 APTT 30.1 Seconds (25.6-37.1) 11/14/18 09:15 - Constitutional Appears: No Acute Distress - Head Exam Head Exam: ATRAUMATIC, NORMOCEPHALIC - Eye Exam Additional comments: Conjunctivae pink - ENT Exam ENT Exam: Mucous Membranes Moist - Respiratory Exam Respiratory Exam: NORMAL BREATHING PATTERN - Cardiovascular Exam Cardiovascular Exam: REGULAR RHYTHM - GI/Abdominal Exam GI & Abdominal Exam: Soft - Extremities Exam Additional comments: Lung ulcers dressed Assessment and Plan - Assessment and Plan (Free Text) Assessment: Stage 1V kidney dis, / Diabetic nephropathy Creat remains stable HTN now controlled C.diff colitis B/L leg ulcers/neuropathy Plan: Continue with current meds Monitor renal function.
[2018-11-16] MEDS: Insulin Detemir 100 Units/ml Inj SC SCH (21:55)
[2018-11-17] MEDS: Vancomycin 500 mg (Oral/Rectal USE) PO SCH ×4 (04:52→22:27)
[2018-11-17] MEDS: metroNIDAZOLE 500mg/100ml NS 100 ML IVPB SCH ×3 (05:32→22:25)
[2018-11-17 06:36] LABS: HEMOGLOBIN 8.9 g/dL (12.0-18.0); MEAN CELL VOLUME 83.9 fl (80.0-94.0); MEAN CORPUSCULAR HGB CONC 32.1 g/dL (33.0-37.0); RBC 3.3 Mil/uL (4.40-5.90); RED CELL DISTRIBUTION WIDTH 15.5 % (11.5-14.5); WHITE BLOOD COUNT 6.1 K/uL (4.8-10.8)
[2018-11-17] MEDS: Insulin Lispro (humaLOG) 100 Units/ml Inj SC SCH ×4 (06:38→22:00)
[2018-11-17] MEDS: Lactated Ringer's 1,000 ML IV SCH ×2 (06:39→19:18)
[2018-11-17 07:03] LABS: ALBUMIN 2.3 g/dL (3.5-5.0); CALCIUM 8.3 mg/dL (8.4-10.2)
[2018-11-17 07:08] LABS: ALB/GLOB RATIO 0.7 (1.0-2.1)
[2018-11-17] MEDS: Saccharomyces Boulardi 250 mg Cap PO SCH ×2 (08:59→18:03)
--- NOTE | 2018-11-17 09:22 | CP.PCM.PN ---
Subjective - Date & Time of Evaluation Date of Evaluation: 11/17/18 Time of Evaluation: 09:23 - Subjective Subjective: CLINICALLY IMPROVING STILL HAS MILD FEET AND BACK PAINS DYSURIA IMPROVED SCHEDULED FOR MORE PODIATRY SURGERY IN AM DIARRHEA RESOLVED Objective - Vital Signs/Intake and Output Vital Signs (last 24 hours): Temp Pulse Resp BP Pulse Ox 98.4 F 69 20 139/91 H 99 11/17/18 08:40 11/17/18 09:00 11/17/18 08:40 11/17/18 09:00 11/17/18 08:40 - Medications Medications: Current Medications Acetaminophen (Tylenol 325mg Tab) 650 mg PO Q4 PRN PRN Reason: Fever >100.4 F Amlodipine Besylate (Norvasc) 10 mg PO DAILY [facility] Last Admin: 11/17/18 08:58 Dose: 10 mg Clonidine HCl (Catapres) 0.2 mg PO TID [facility] Last Admin: 11/17/18 08:59 Dose: 0.2 mg Dextrose (Dextrose 50% Inj) 0 ml IV STAT PRN; Protocol PRN Reason: Hypoglycemia Protocol Dextrose (Glutose 15) 0 gm PO ONCE PRN; Protocol PRN Reason: Hypoglycemia Protocol Glucagon (Glucagen Diagnostic Kit) 0 mg IM STAT PRN; Protocol PRN Reason: Hypoglycemia Protocol Heparin Sodium (Porcine) (Heparin) 5,000 units SC Q12 [facility]; Protocol Last Admin: 11/17/18 08:59 Dose: 5,000 units Vancomycin HCl 1 gm/ Sodium (Chloride) 250 mls @ 166.667 mls/hr IVPB Q24H [facility]; Protocol Last Admin: 11/16/18 12:41 Dose: Not Given Metronidazole (Flagyl 500mg/100ml Ns) 100 mls @ 100 mls/hr IVPB Q8@0600,1400,2200 [facility]; Protocol Last Admin: 11/17/18 05:32 Dose: 100 mls/hr Lactated Ringer's (Lactated Ringer's) 1,000 mls @ 125 mls/hr IV .Q8H [facility] Last Admin: 11/17/18 06:39 Dose: Not Given Insulin Detemir (Levemir) 30 units SC HS [facility] Last Admin: 11/16/18 21:55 Dose: 30 units Insulin Human Lispro (Humalog) 0 units SC ACHS [facility]; Protocol Last Admin: 11/17/18 06:38 Dose: 4 unit Ketorolac Tromethamine (Toradol) 30 mg IVP Q6 PRN PRN Reason: Pain, moderate (4-7) Last Admin: 11/17/18 08:57 Dose: 30 mg Metoprolol Tartrate (Lopressor) 100 mg PO BID [facility] Last Admin: 11/17/18 09:00 Dose: 100 mg Ondansetron HCl (Zofran Inj) 4 mg IVP Q4 PRN PRN Reason: Nausea/Vomiting Last Admin: 11/16/18 12:11 Dose: 4 mg Saccharomyces Boulardii (Florastor) 250 mg PO BID [facility] Last Admin: 11/17/18 08:59 Dose: 250 mg Silver Sulfadiazine (Silvadene 1% 20 Gm) 0 ea TOP DAILY [facility] Last Admin: 11/16/18 09:09 Dose: Not Given Vancomycin HCl (Vancocin (Oral/Rectal Use)) 250 mg PO Q6H [facility]; Protocol Last Admin: 11/17/18 04:52 Dose: 250 mg - Labs Labs: 11/17/18 05:55 11/17/18 05:55 PT 11.4 Seconds (9.8-13.1) 11/14/18 09:15 INR 1.0 11/14/18 09:15 APTT 30.1 Seconds (25.6-37.1) 11/14/18 09:15 - Constitutional Appears: Chronically Ill - Head Exam Head Exam: ATRAUMATIC, NORMAL INSPECTION, NORMOCEPHALIC - Eye Exam Eye Exam: EOMI, Normal appearance, PERRL Pupil Exam: NORMAL ACCOMODATION, PERRL - ENT Exam ENT Exam: Mucous Membranes Moist, Normal Exam - Neck Exam Neck Exam: Full ROM, Normal Inspection. absent: Lymphadenopathy - Respiratory Exam Respiratory Exam: Clear to Ausculation Bilateral, NORMAL BREATHING PATTERN - Cardiovascular Exam Cardiovascular Exam: REGULAR RHYTHM, +S1, +S2. absent: Murmur - GI/Abdominal Exam GI & Abdominal Exam: Soft, Normal Bowel Sounds. absent: Tenderness - Rectal Exam Rectal Exam: NORMAL INSPECTION - Extremities Exam Extremities Exam: Full ROM, Normal Capillary Refill, Normal Inspection, Tenderness. 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
--- NOTE | 2018-11-17 09:45 | CP.PCM.PN ---
Subjective - Date & Time of Evaluation Date of Evaluation: 11/17/18 Time of Evaluation: 09:45 - Subjective Subjective: Podiatry Progress Note: Dr. Freedman 28 year old male patient seen and evaluated at bedside for B/L lower extremity ulcerations with L charcot deformity, POD#2 R leg wound debridement with graft harvest. Patient aware of planned procedure tomorrow for wound graft deployment. Patient resting comfortably and in NAD. Denies N/F/SOB. Objective - Vital Signs/Intake and Output Vital Signs (last 24 hours): Temp Pulse Resp BP Pulse Ox 98.4 F 69 20 139/91 H 99 11/17/18 08:40 11/17/18 09:00 11/17/18 08:40 11/17/18 09:00 11/17/18 08:40 - Medications Medications: Current Medications Acetaminophen (Tylenol 325mg Tab) 650 mg PO Q4 PRN PRN Reason: Fever >100.4 F Amlodipine Besylate (Norvasc) 10 mg PO DAILY [facility] Last Admin: 11/17/18 08:58 Dose: 10 mg Clonidine HCl (Catapres) 0.2 mg PO TID [facility] Last Admin: 11/17/18 08:59 Dose: 0.2 mg Dextrose (Dextrose 50% Inj) 0 ml IV STAT PRN; Protocol PRN Reason: Hypoglycemia Protocol Dextrose (Glutose 15) 0 gm PO ONCE PRN; Protocol PRN Reason: Hypoglycemia Protocol Glucagon (Glucagen Diagnostic Kit) 0 mg IM STAT PRN; Protocol PRN Reason: Hypoglycemia Protocol Heparin Sodium (Porcine) (Heparin) 5,000 units SC Q12 [facility]; Protocol Last Admin: 11/17/18 08:59 Dose: 5,000 units Vancomycin HCl 1 gm/ Sodium (Chloride) 250 mls @ 166.667 mls/hr IVPB Q24H [facility]; Protocol Last Admin: 11/16/18 12:41 Dose: Not Given Metronidazole (Flagyl 500mg/100ml Ns) 100 mls @ 100 mls/hr IVPB Q8@0600,1400,2200 [facility]; Protocol Last Admin: 11/17/18 05:32 Dose: 100 mls/hr Lactated Ringer's (Lactated Ringer's) 1,000 mls @ 125 mls/hr IV .Q8H [facility] Last Admin: 11/17/18 06:39 Dose: Not Given Insulin Detemir (Levemir) 30 units SC HS [facility] Last Admin: 11/16/18 21:55 Dose: 30 units Insulin Human Lispro (Humalog) 0 units SC ACHS [facility]; Protocol Last Admin: 11/17/18 06:38 Dose: 4 unit Ketorolac Tromethamine (Toradol) 30 mg IVP Q6 PRN PRN Reason: Pain, moderate (4-7) Last Admin: 11/17/18 08:57 Dose: 30 mg Metoprolol Tartrate (Lopressor) 100 mg PO BID [facility] Last Admin: 11/17/18 09:00 Dose: 100 mg Ondansetron HCl (Zofran Inj) 4 mg IVP Q4 PRN PRN Reason: Nausea/Vomiting Last Admin: 11/16/18 12:11 Dose: 4 mg Saccharomyces Boulardii (Florastor) 250 mg PO BID [facility] Last Admin: 11/17/18 08:59 Dose: 250 mg Silver Sulfadiazine (Silvadene 1% 20 Gm) 0 ea TOP DAILY [facility] Last Admin: 11/16/18 09:09 Dose: Not Given Vancomycin HCl (Vancocin (Oral/Rectal Use)) 250 mg PO Q6H [facility]; Protocol Last Admin: 11/17/18 04:52 Dose: 250 mg - Labs Labs: 11/17/18 05:55 11/17/18 05:55 PT 11.4 Seconds (9.8-13.1) 11/14/18 09:15 INR 1.0 11/14/18 09:15 APTT 30.1 Seconds (25.6-37.1) 11/14/18 09:15 - Constitutional Appears: Non-toxic, No Acute Distress - Head Exam Head Exam: ATRAUMATIC, NORMOCEPHALIC - Extremities Exam Additional comments: LLE focused exam, RLE surgical dressing left clean, dry, intact: VASC: DP and PT 2/4, temperature gradient warm to warm to bilateral lower extremity, CFT < 3 seconds, edema noted to the anterior lateral aspect of the left lower extremity ORTHO: MMT is 5/5 in all four compartments, collapsed arch on left secondary to charcot deformity NEURO: gross and protective sensation intact DERM: LLE ulceration appreciated to the 5th metatarsal , approximately 2.0x1.5x.5cm, and lateral malleolus, approximately 2.5x1x.2cm, with mixed fibrous/granular base, mild serous/sanginous drainage appreciated, <1cc of purulence expressed at this time. - Neurological Exam Neurological Exam: Alert, Awake, Oriented x3 - Psychiatric Exam Psychiatric exam: Normal Affect, Normal Mood Assessment and Plan - Assessment and Plan (Free Text) Assessment: 28 year old male patient, with PMHx of DMI, HTN, with b/l lower extremity wounds secondary to diabetes Plan: Patient seen and evaluated Discussed with attending, Dr. Freedman Blood culture; Streptococcus Species L ankle and foot xrays ordered; Findings consistent with Charcot joint. Destructive changes of midfoot bones as well as the distal margins of the tibia and fibular. Note that superimposed infection-chronic OM not excluded Local wound care to L lower extremity; silvadene, xeroform, DSD Surgical dressing left clean, dry, intact. Vasc consulted; reccs appreciated ID consulted; reccs appreciated NPO overnight Please medically optimize patient Plan for R leg graft deployment on Wednesday with Dr. Freedman at 1:30
--- NOTE | 2018-11-17 12:15 | PQF ---
PROVIDER RESPONSE TEXT: 1. Depth: 0.4 cm in depth 2. Excisional and non-excisional debridement REVIEWER QUERY TEXT: Procedure Clarification Documentation of Right Anterior Leg Wound Debridement.Attention was then drawn to the right anterior leg wound measuring 10 cm X 7 cm. The wound was debrided removing all nonviable tissue with an #10 bl shavon. Then Misonix on Power 7 was utilized until granular tissue was noted. --- Please clarify 1) Depth of the Debridement . 2) Type of Debridement: Excisional, Non-Excisional o r BOTH Excisional and Non-Excisional Debridement Requirements for documentation of procedures now require additional specificity.Your help is needed i n clarifying . Query created by: Misty Thomas on 11/17/2018 9:48 AM Electronically signed by: Vera Miranda 11/17/2018 12:11 PM
--- NOTE | 2018-11-17 13:00 | CP.PCM.PN ---
Subjective - Date & Time of Evaluation Date of Evaluation: 11/17/18 Time of Evaluation: 12:30 - Subjective Subjective: Feels better. Less diarrhea Objective - Vital Signs/Intake and Output Vital Signs (last 24 hours): Temp Pulse Resp BP Pulse Ox 98.4 F 69 20 139/91 H 99 11/17/18 08:40 11/17/18 09:00 11/17/18 08:40 11/17/18 09:00 11/17/18 08:40 - Medications Medications: Current Medications Acetaminophen (Tylenol 325mg Tab) 650 mg PO Q4 PRN PRN Reason: Fever >100.4 F Amlodipine Besylate (Norvasc) 10 mg PO DAILY [facility] Last Admin: 11/17/18 08:58 Dose: 10 mg Clonidine HCl (Catapres) 0.2 mg PO TID [facility] Last Admin: 11/17/18 08:59 Dose: 0.2 mg Dextrose (Dextrose 50% Inj) 0 ml IV STAT PRN; Protocol PRN Reason: Hypoglycemia Protocol Dextrose (Glutose 15) 0 gm PO ONCE PRN; Protocol PRN Reason: Hypoglycemia Protocol Glucagon (Glucagen Diagnostic Kit) 0 mg IM STAT PRN; Protocol PRN Reason: Hypoglycemia Protocol Heparin Sodium (Porcine) (Heparin) 5,000 units SC Q12 [facility]; Protocol Last Admin: 11/17/18 08:59 Dose: 5,000 units Vancomycin HCl 1 gm/ Sodium (Chloride) 250 mls @ 166.667 mls/hr IVPB Q24H [facility]; Protocol Last Admin: 11/16/18 12:41 Dose: Not Given Metronidazole (Flagyl 500mg/100ml Ns) 100 mls @ 100 mls/hr IVPB Q8@0600,1400,2200 [facility]; Protocol Last Admin: 11/17/18 05:32 Dose: 100 mls/hr Lactated Ringer's (Lactated Ringer's) 1,000 mls @ 125 mls/hr IV .Q8H [facility] Last Admin: 11/17/18 06:39 Dose: Not Given Insulin Detemir (Levemir) 30 units SC HS [facility] Last Admin: 11/16/18 21:55 Dose: 30 units Insulin Human Lispro (Humalog) 0 units SC ACHS [facility]; Protocol Last Admin: 11/17/18 06:38 Dose: 4 unit Ketorolac Tromethamine (Toradol) 30 mg IVP Q6 PRN PRN Reason: Pain, moderate (4-7) Last Admin: 11/17/18 08:57 Dose: 30 mg Metoprolol Tartrate (Lopressor) 100 mg PO BID [facility] Last Admin: 11/17/18 09:00 Dose: 100 mg Ondansetron HCl (Zofran Inj) 4 mg IVP Q4 PRN PRN Reason: Nausea/Vomiting Last Admin: 11/16/18 12:11 Dose: 4 mg Saccharomyces Boulardii (Florastor) 250 mg PO BID [facility] Last Admin: 11/17/18 08:59 Dose: 250 mg Silver Sulfadiazine (Silvadene 1% 20 Gm) 0 ea TOP DAILY [facility] Last Admin: 11/16/18 09:09 Dose: Not Given Vancomycin HCl (Vancocin (Oral/Rectal Use)) 250 mg PO Q6H [facility]; Protocol Last Admin: 11/17/18 04:52 Dose: 250 mg - Labs Labs: 11/17/18 05:55 11/17/18 05:55 PT 11.4 Seconds (9.8-13.1) 11/14/18 09:15 INR 1.0 11/14/18 09:15 APTT 30.1 Seconds (25.6-37.1) 11/14/18 09:15 - Constitutional Appears: No Acute Distress - Eye Exam Additional comments: Conjunctiva pink - ENT Exam ENT Exam: Mucous Membranes Moist - Neck Exam Additional comments: No jugular venous distension - Respiratory Exam Respiratory Exam: NORMAL BREATHING PATTERN Additional comments: Lungs clear - Cardiovascular Exam Cardiovascular Exam: REGULAR RHYTHM - GI/Abdominal Exam GI & Abdominal Exam: Soft Additional comments: No significant tenderness - Extremities Exam Additional comments: Legs dressed Assessment and Plan - Assessment and Plan (Free Text) Assessment: CKD/diabetic nephropathy. Renal function remains stable B/L leg ulcers C.diff colitis HTN improved Plan: Continue to monitor renal function. Suggest to decrease IVFs
--- NOTE | 2018-11-17 15:23 | CP.PCM.PN ---
Subjective - Date & Time of Evaluation Date of Evaluation: 11/17/18 Time of Evaluation: 15:20 - Subjective Subjective: Jus Wagoner, PGY-1, Cardiology Progress Note for Dr. Read Patient seen and evaluated at bedside. Patient had no acute overnight events. Patient reports bilateral lower extremity pain. Objective - Vital Signs/Intake and Output Vital Signs (last 24 hours): Temp Pulse Resp BP Pulse Ox 98.4 F 80 20 161/78 H 99 11/17/18 08:40 11/17/18 14:03 11/17/18 08:40 11/17/18 14:03 11/17/18 08:40 - Medications Medications: Current Medications Acetaminophen (Tylenol 325mg Tab) 650 mg PO Q4 PRN PRN Reason: Fever >100.4 F Amlodipine Besylate (Norvasc) 10 mg PO DAILY [facility] Last Admin: 11/17/18 08:58 Dose: 10 mg Clonidine HCl (Catapres) 0.2 mg PO TID [facility] Last Admin: 11/17/18 14:03 Dose: 0.2 mg Dextrose (Dextrose 50% Inj) 0 ml IV STAT PRN; Protocol PRN Reason: Hypoglycemia Protocol Dextrose (Glutose 15) 0 gm PO ONCE PRN; Protocol PRN Reason: Hypoglycemia Protocol Glucagon (Glucagen Diagnostic Kit) 0 mg IM STAT PRN; Protocol PRN Reason: Hypoglycemia Protocol Heparin Sodium (Porcine) (Heparin) 5,000 units SC Q12 [facility]; Protocol Last Admin: 11/17/18 08:59 Dose: 5,000 units Vancomycin HCl 1 gm/ Sodium (Chloride) 250 mls @ 166.667 mls/hr IVPB Q24H [facility]; Protocol Last Admin: 11/17/18 14:02 Dose: 166.667 mls/hr Metronidazole (Flagyl 500mg/100ml Ns) 100 mls @ 100 mls/hr IVPB Q8@0600,1400,22 00 [facility]; Protocol Last Admin: 11/17/18 14:00 Dose: 100 mls/hr Lactated Ringer's (Lactated Ringer's) 1,000 mls @ 125 mls/hr IV .Q8H [facility] Last Admin: 11/17/18 06:39 Dose: Not Given Insulin Detemir (Levemir) 30 units SC HS [facility] Last Admin: 11/16/18 21:55 Dose: 30 units Insulin Human Lispro (Humalog) 0 units SC ACHS [facility]; Protocol Last Admin: 11/17/18 13:52 Dose: Not Given Ketorolac Tromethamine (Toradol) 30 mg IVP Q6 PRN PRN Reason: Pain, moderate (4-7) Last Admin: 11/17/18 08:57 Dose: 30 mg Metoprolol Tartrate (Lopressor) 100 mg PO BID [facility] Last Admin: 11/17/18 09:00 Dose: 100 mg Ondansetron HCl (Zofran Inj) 4 mg IVP Q4 PRN PRN Reason: Nausea/Vomiting Last Admin: 11/16/18 12:11 Dose: 4 mg Saccharomyces Boulardii (Florastor) 250 mg PO BID [facility] Last Admin: 11/17/18 08:59 Dose: 250 mg Silver Sulfadiazine (Silvadene 1% 20 Gm) 0 ea TOP DAILY [facility] Last Admin: 11/16/18 09:09 Dose: Not Given Vancomycin HCl (Vancocin (Oral/Rectal Use)) 250 mg PO Q6H [facility]; Protocol Last Admin: 11/17/18 14:01 Dose: 250 mg - Labs Labs: 11/17/18 05:55 11/17/18 05:55 PT 11.4 Seconds (9.8-13.1) 11/14/18 09:15 INR 1.0 11/14/18 09:15 APTT 30.1 Seconds (25.6-37.1) 11/14/18 09:15 - Constitutional Appears: Well, Non-toxic, No Acute Distress - Head Exam Head Exam: ATRAUMATIC, NORMAL INSPECTION, NORMOCEPHALIC - Eye Exam Eye Exam: EOMI, Normal appearance, PERRL - ENT Exam ENT Exam: Mucous Membranes Moist - Respiratory Exam Respiratory Exam: Clear to Auscultation Bilateral, NORMAL BREATHING PATTERN - Cardiovascular Exam Cardiovascular Exam: REGULAR RHYTHM, RRR, +S1, +S2 - GI/Abdominal Exam GI & Abdominal Exam: Normal Bowel Sounds, Soft. absent: Tenderness - Extremities Exam Extremities exam: Positive for: full ROM - Neurological Exam Neurological exam: Alert, CN II-XII Intact, Oriented x3 - Skin Skin Exam: Dry, Intact Additional comments: bilateral lower extremity wounds Assessment and Plan (1) Diabetic foot ulcer Assessment & Plan: Patient has severe beebe on bilateral lower extremities. Due to patient's poor vasculature from diabetes, will evaluate with arterial duplex since patient is not a candidate for CTA of bilateral lower extremities due to renal function. Status: Chronic (2) CKD (chronic kidney disease) Assessment & Plan: Last BUN/Cr was 25/2 Improved today Continue to monitor Avoid CESAR/ARB, nephrotoxins Status: Chronic (3) History of hypertension Assessment & Plan: Continue with norvasc, clonidine, and lopressor. Status: Chronic (4) Uncontrolled type 1 diabetes mellitus Assessment & Plan: Continue with levemir and lispro Status: Chronic (5) Bacteremia Assessment & Plan: Strep bacteremia likely 2/2 to lower extremity wounds Continue antibiotics Status: Acute
[2018-11-17] MEDS: Silver Sulfadiazine 1% Cream (20 gm) TOP SCH (18:00)
--- NOTE | 2018-11-17 19:00 | CP.PCM.HP ---
History of Present Illness - History of Present Illness History of Present Illness: UPDATED H AND P PATIENT WAS RE-EVALUATED BY ME TODAY PRIOR TO PODIATRY SURGERY--SKIN GRAFT HE C/O LEG/FEET/ANKLE PAINS HX OF DM/HTN/CHARCOT FOOT AND DIABETIC FEET ULCERS/PYELONEPHRITIS AND C.DIF COLITIS Present on Admission - Present on Admission Any Indicators Present on Admission: No Past Patient History - Infectious Disease Hx of Infectious Diseases: None - Tetanus Immunizations Tetanus Immunization: Unknown - Past Medical History & Family History Past Medical History?: Yes - Past Social History Smoking Status: Light Smoker < 10 Cigarettes Daily - CARDIAC Hx Hypertension: Yes - PULMONARY Hx Respiratory Disorders: No - NEUROLOGICAL Hx Neurological Disorder: No - HEENT Hx HEENT Problems: No - RENAL Hx Chronic Kidney Disease: Yes - ENDOCRINE/METABOLIC Hx Endocrine Disorders: Yes (SEE COMMENT) - HEMATOLOGICAL/ONCOLOGICAL Hx Blood Disorders: No - INTEGUMENTARY Hx Dermatological Problems: Yes Other/Comment: LEFT LEG - OSTEOMYLITIS - MUSCULOSKELETAL/RHEUMATOLOGICAL Hx Arthritis: Yes (KNEE, ANKLE) Hx Fractures: Yes (R shoulder 2015) - GASTROINTESTINAL Hx Gastrointestinal Disorders: No - GENITOURINARY/GYNECOLOGICAL Hx Genitourinary Disorders: No - PSYCHIATRIC Hx Psychophysiologic Disorder: Yes Hx Substance Use: Yes (marijuana user , smokes marijuana on weekends) - SURGICAL HISTORY Other/Comment: Left foot surgery with graft. L foot debridement - ANESTHESIA Hx Anesthesia: Yes Hx Anesthesia Reactions: No Hx Malignant Hyperthermia: No Meds Allergies/Adverse Reactions: Allergies Allergy/AdvReac Type Severity Reaction Status Date / Time pollen extracts Allergy Intermediate ITCHING Verified 09/10/18 08:05 Physical Exam - Constitutional Appears: Well, Chronically Ill - Head Exam Head Exam: ATRAUMATIC, NORMAL INSPECTION, NORMOCEPHALIC - Eye Exam Eye Exam: EOMI, Normal appearance, PERRL Pupil Exam: NORMAL ACCOMODATION, PERRL - ENT Exam ENT Exam: Mucous Membranes Moist, Normal Exam - Neck Exam Neck exam: Positive for: Normal Inspection - Respiratory Exam Respiratory Exam: Clear to Auscultation Bilateral, NORMAL BREATHING PATTERN - Cardiovascular Exam Cardiovascular Exam: REGULAR RHYTHM - GI/Abdominal Exam GI & Abdominal Exam: Normal Bowel Sounds, Soft. absent: Tenderness - Rectal Exam Rectal Exam: NORMAL INSPECTION - Extremities Exam Extremities exam: Positive for: normal inspection, tenderness Additional comments: CHARCOT AND FEET ULCER - Back Exam Back exam: NORMAL INSPECTION - Neurological Exam Neurological exam: Alert, CN II-XII Intact, Normal Gait, Oriented x3, Reflexes Normal - Psychiatric Exam Psychiatric exam: Normal Affect, Normal Mood - Skin Skin Exam: Dry, Intact, Normal Color, Warm Results - Vital Signs Recent Vital Signs: Last Vital Signs Temp 98 F 11/17/18 16:11 Pulse 82 11/17/18 18:03 Resp 18 11/17/18 16:11 BP 153/82 H 11/17/18 18:03 Pulse Ox 100 11/17/18 16:11 - Labs Result Diagrams: 11/17/18 05:55 11/17/18 05:55 Labs: Laboratory Results - last 24 hr 11/16/18 11/17/18 11/17/18 21:21 05:24 05:55 WBC RBC Hgb Hct MCV MCH MCHC RDW Plt Count Sodium Potassium Chloride Carbon Dioxide Anion Gap BUN Creatinine Est GFR ( Amer) Est GFR (Non-Af Amer) POC Glucose (mg/dL) 232 H 323 H Random Glucose Calcium Total Bilirubin AST ALT Alkaline Phosphatase Total Protein Albumin Globulin Albumin/Globulin Ratio Vancomycin Trough 9.3 11/17/18 11/17/18 11/17/18 05:55 05:55 10:42 WBC 6.1 RBC 3.30 L Hgb 8.9 L Hct 27.7 L MCV 83.9 MCH 27.0 MCHC 32.1 L RDW 15.5 H Plt Count 202 Sodium 133 Potassium 4.4 Chloride 108 H Carbon Dioxide 19 L Anion Gap 10 BUN 25 H Creatinine 2.0 H Est GFR ( Amer) 49 Est GFR (Non-Af Amer) 40 POC Glucose (mg/dL) 137 H Random Glucose 270 H Calcium 8.3 L Total Bilirubin 0.1 L AST 43 ALT 42 Alkaline Phosphatase 91 Total Protein 5.5 L Albumin 2.3 L Globulin 3.2 Albumin/Globulin Ratio 0.7 L Vancomycin Trough 11/17/18 15:42 WBC RBC Hgb Hct MCV MCH MCHC RDW Plt Count Sodium Potassium Chloride Carbon Dioxide Anion Gap BUN Creatinine Est GFR ( Amer) Est GFR (Non-Af Amer) POC Glucose (mg/dL) 122 H Random Glucose Calcium Total Bilirubin AST ALT Alkaline Phosphatase Total Protein Albumin Globulin Albumin/Globulin Ratio Vancomycin Trough Assessment & Plan - Assessment and Plan (Free Text) Assessment: LEG WOUND DIABETES HTN PYELONEPHRITIS COLITIS Plan: LABS REVIEWED H AND P UPDATED PT IS MEDICALLY STABLE FOR PODIATRY SURGERY MEDICALLY CLEARED FOR SURGERY
[2018-11-17] MEDS: Insulin Detemir 100 Units/ml Inj SC SCH (22:00)
[2018-11-18] MEDS: Vancomycin 500 mg (Oral/Rectal USE) PO SCH ×3 (04:33→18:32)
[2018-11-18] MEDS: Lactated Ringer's 1,000 ML IV SCH ×2 (04:35→11:00)
[2018-11-18] MEDS: metroNIDAZOLE 500mg/100ml NS 100 ML IVPB SCH ×2 (05:20→15:15)
[2018-11-18] MEDS ORDERED: Insulin Regular 100 units/ml SC STA ×2 (06:46→22:30)
[2018-11-18] MEDS: Insulin Lispro (humaLOG) 100 Units/ml Inj SC SCH ×3 (07:30→18:31)
[2018-11-18] MEDS: Saccharomyces Boulardi 250 mg Cap PO SCH ×2 (11:07→18:31)
--- NOTE | 2018-11-18 11:59 | CP.PCM.PN ---
Subjective - Date & Time of Evaluation Date of Evaluation: 11/18/18 Time of Evaluation: 11:59 - Subjective Subjective: Podiatry Progress Note: Dr. Freedman 28 year old male patient seen and evaluated at bedside for B/L lower extremity ulcerations with L charcot deformity, POD#3 R leg wound debridement with graft harvest. Plan for surgical intervention today with Dr. Freedman, for wound graft deployment. Patient has remained NPO. Denies N/F/SOB. Objective - Vital Signs/Intake and Output Vital Signs (last 24 hours): Temp Pulse Resp BP Pulse Ox 97.8 F 87 20 157/90 H 99 11/18/18 08:12 11/18/18 11:08 11/18/18 08:12 11/18/18 11:08 11/18/18 08:12 - Medications Medications: Current Medications Acetaminophen (Tylenol 325mg Tab) 650 mg PO Q4 PRN PRN Reason: Fever >100.4 F Amlodipine Besylate (Norvasc) 10 mg PO DAILY [facility] Last Admin: 11/18/18 11:07 Dose: 10 mg Clonidine HCl (Catapres) 0.2 mg PO TID [facility] Last Admin: 11/17/18 18:02 Dose: 0.2 mg Dextrose (Dextrose 50% Inj) 0 ml IV STAT PRN; Protocol PRN Reason: Hypoglycemia Protocol Dextrose (Glutose 15) 0 gm PO ONCE PRN; Protocol PRN Reason: Hypoglycemia Protocol Glucagon (Glucagen Diagnostic Kit) 0 mg IM STAT PRN; Protocol PRN Reason: Hypoglycemia Protocol Heparin Sodium (Porcine) (Heparin) 5,000 units SC Q12 [facility]; Protocol Last Admin: 11/18/18 10:57 Dose: Not Given Vancomycin HCl 1 gm/ Sodium (Chloride) 250 mls @ 166.667 mls/hr IVPB Q24H [facility]; Protocol Last Admin: 11/17/18 14:02 Dose: 166.667 mls/hr Metronidazole (Flagyl 500mg/100ml Ns) 100 mls @ 100 mls/hr IVPB Q8@0600,1400,2200 [facility]; Protocol Last Admin: 11/18/18 05:20 Dose: 100 mls/hr Lactated Ringer's (Lactated Ringer's) 1,000 mls @ 60 mls/hr IV .[id number] [facility] Last Admin: 11/18/18 04:35 Dose: 60 mls/hr Insulin Detemir (Levemir) 30 units SC HS [facility] Last Admin: 11/17/18 22:00 Dose: Not Given Insulin Human Lispro (Humalog) 0 units SC ACHS [facility]; Protocol Last Admin: 11/18/18 07:30 Dose: Not Given Ketorolac Tromethamine (Toradol) 30 mg IVP Q6 PRN PRN Reason: Pain, moderate (4-7) Last Admin: 11/17/18 22:31 Dose: 30 mg Metoprolol Tartrate (Lopressor) 100 mg PO BID [facility] Last Admin: 11/18/18 11:08 Dose: 100 mg Ondansetron HCl (Zofran Inj) 4 mg IVP Q4 PRN PRN Reason: Nausea/Vomiting Last Admin: 11/18/18 01:08 Dose: 4 mg Saccharomyces Boulardii (Florastor) 250 mg PO BID [facility] Last Admin: 11/18/18 11:07 Dose: 250 mg Silver Sulfadiazine (Silvadene 1% 20 Gm) 0 ea TOP DAILY [facility] Last Admin: 11/17/18 18:00 Dose: Not Given Vancomycin HCl (Vancocin (Oral/Rectal Use)) 250 mg PO Q6H [facility]; Protocol Last Admin: 11/18/18 11:11 Dose: 250 mg - Labs Labs: 11/17/18 05:55 11/17/18 05:55 PT 11.4 Seconds (9.8-13.1) 11/14/18 09:15 INR 1.0 11/14/18 09:15 APTT 30.1 Seconds (25.6-37.1) 11/14/18 09:15 - Constitutional Appears: Non-toxic, No Acute Distress - Head Exam Head Exam: ATRAUMATIC, NORMOCEPHALIC - Extremities Exam Additional comments: LE dressings left clean/dry/intact CFT < 3 seconds Patient able to wiggle toes - Neurological Exam Neurological Exam: Alert, Awake, Oriented x3 - Psychiatric Exam Psychiatric exam: Normal Affect, Normal Mood Assessment and Plan - Assessment and Plan (Free Text) Assessment: 28 year old male patient seen and evaluated at bedside for B/L lower extremity ulcerations with L charcot deformity, POD#3 R leg wound debridement with graft harvest, plan for graft deployment today Plan: Patient seen and evaluated Discussed with attending, Dr. Freedman Blood culture; Streptococcus Species L ankle and foot xrays ordered; Findings consistent with Charcot joint. Destruc tive changes of midfoot bones as well as the distal margins of the tibia and fibular. Note that superimposed infection-chronic OM not excluded Local wound care to L lower extremity; silvadene, xeroform, DSD Surgical dressing left clean, dry, intact. Vasc consulted; reccs appreciated; Due to patient's poor vasculature from diabetes, will evaluate with arterial duplex since patient is not a candidate for CTA of bilateral lower extremities due to renal function. ID consulted; reccs appreciated Plan for R leg graft deployment today
--- NOTE | 2018-11-18 12:19 | CP.PCM.PN ---
Subjective - Date & Time of Evaluation Date of Evaluation: 11/18/18 Time of Evaluation: 12:16 - Subjective Subjective: Jus Wagoner, PGY-1, Cardiology Progress Note for Dr. Read Patient seen and evaluated at bedside. Patient had no acute overnight events. Patient reports bilateral lower extremity pain. Objective - Vital Signs/Intake and Output Vital Signs (last 24 hours): Temp Pulse Resp BP Pulse Ox 97.8 F 87 20 157/90 H 99 11/18/18 08:12 11/18/18 11:08 11/18/18 08:12 11/18/18 11:08 11/18/18 08:12 - Medications Medications: Current Medications Acetaminophen (Tylenol 325mg Tab) 650 mg PO Q4 PRN PRN Reason: Fever >100.4 F Amlodipine Besylate (Norvasc) [address] [facility] Last Admin: 11/18/18 11:07 Dose: 10 mg Clonidine HCl (Catapres) 0.[address] [facility] Last Admin: 11/17/18 18:02 Dose: 0.2 mg Dextrose (Dextrose 50% Inj) 0 ml IV STAT PRN; Protocol PRN Reason: Hypoglycemia Protocol Dextrose (Glutose 15) 0 gm PO ONCE PRN; Protocol PRN Reason: Hypoglycemia Protocol Glucagon (Glucagen Diagnostic Kit) 0 mg IM STAT PRN; Protocol PRN Reason: Hypoglycemia Protocol Heparin Sodium (Porcine) (Heparin) 5,000 units SC Q12 [facility]; Protocol Last Admin: 11/18/18 10:57 Dose: Not Given Vancomycin HCl 1 gm/ Sodium (Chloride) 250 mls @ 166.667 mls/hr IVPB Q24H [facility]; Protocol Last Admin: 11/17/18 14:02 Dose: 166.667 mls/hr Metronidazole (Flagyl 500mg/100ml Ns) 100 mls @ 100 mls/hr IVPB Q8@0600,1400,2200 [facility]; Protocol Last Admin: 11/18/18 05:20 Dose: 100 mls/hr Lactated Ringer's (Lactated Ringer's) 1,000 mls @ 60 mls/hr IV .[id number] [facility] Last Admin: 11/18/18 04:35 Dose: 60 mls/hr Insulin Detemir (Levemir) [address] [facility] Last Admin: 11/17/18 22:00 Dose: Not Given Insulin Human Lispro (Humalog) 0 units [address] [facility]; Protocol Last Admin: 11/18/18 07:30 Dose: Not Given Ketorolac Tromethamine (Toradol) 30 mg IVP Q6 PRN PRN Reason: Pain, moderate (4-7) Last Admin: 11/17/18 22:31 Dose: 30 mg Metoprolol Tartrate (Lopressor) [address] [facility] Last Admin: 11/18/18 11:08 Dose: 100 mg Ondansetron HCl (Zofran Inj) 4 mg IVP Q4 PRN PRN Reason: Nausea/Vomiting Last Admin: 11/18/18 01:08 Dose: 4 mg Saccharomyces Boulardii (Florastor) [address] [facility] Last Admin: 11/18/18 11:07 Dose: 250 mg Silver Sulfadiazine (Silvadene 1% 20 Gm) [address] [facility] Last Admin: 11/17/18 18:00 Dose: Not Given Vancomycin HCl (Vancocin (Oral/Rectal Use)) [address] [facility]; Protocol Last Admin: 11/18/18 11:11 Dose: 250 mg - Labs Labs: 11/17/18 05:55 11/17/18 05:55 PT 11.4 Seconds (9.8-13.1) 11/14/18 09:15 INR 1.0 11/14/18 09:15 APTT 30.1 Seconds (25.6-37.1) 11/14/18 09:15 - Constitutional Appears: Well, Non-toxic, No Acute Distress - Head Exam Head Exam: ATRAUMATIC, NORMAL INSPECTION, NORMOCEPHALIC - Eye Exam Eye Exam: EOMI, Normal appearance, PERRL - ENT Exam ENT Exam: Mucous Membranes Moist - Respiratory Exam Respiratory Exam: Clear to Auscultation Bilateral, NORMAL BREATHING PATTERN - Cardiovascular Exam Cardiovascular Exam: REGULAR RHYTHM, RRR, +S1, +S2 - GI/Abdominal Exam GI & Abdominal Exam: Normal Bowel Sounds, Soft. absent: Tenderness - Extremities Exam Extremities exam: Positive for: full ROM - Neurological Exam Neurological exam: Alert, CN II-XII Intact, Oriented x3 - Skin Skin Exam: Dry, Intact Additional comments: bilateral lower extremity wounds Assessment and Plan (1) Diabetic foot ulcer Assessment & Plan: Patient has severe beebe on bilateral lower extremities. Due to patient's poor vasculature from diabetes, will follow up arterial duplex since patient is not a candidate for CTA of bilateral lower extremities due to renal function. Patient will go for right leg graft deployment today. Status: Chronic (2) CKD (chronic kidney disease) Assessment & Plan: Last BUN/Cr was 25/2 on 11/17 Continue to monitor Avoid CESAR/ARB, nephrotoxins Status: Chronic (3) History of hypertension Assessment & Plan: Blood pressure in 150s/90s and has nocturnal dipping at 120s/70s at night. Continue with norvasc, clonidine, and lopressor. Status: Chronic (4) Uncontrolled type 1 diabetes mellitus Assessment & Plan: HgbA1c: 7.8 Continue with levemir and lispro. Consider increasing levemir Status: Chronic (5) Bacteremia Assessment & Plan: Strep bacteremia likely 2/2 to lower extremity wounds Continue with antibiotics Status: Acute
--- NOTE | 2018-11-18 12:30 | CP.PCM.PN ---
Subjective - Date & Time of Evaluation Date of Evaluation: 11/18/18 Time of Evaluation: 12:30 - Subjective Subjective: NO NEW CLINICAL FINDINGD SCHEDULED FOR SKIN GRAFT OF LOWER EXTREMITY TODAY Objective - Vital Signs/Intake and Output Vital Signs (last 24 hours): Temp Pulse Resp BP Pulse Ox 97.8 F 87 20 157/90 H 99 11/18/18 08:12 11/18/18 11:08 11/18/18 08:12 11/18/18 11:08 11/18/18 08:12 - Medications Medications: Current Medications Acetaminophen (Tylenol 325mg Tab) 650 mg PO Q4 PRN PRN Reason: Fever >100.4 F Amlodipine Besylate (Norvasc) 10 mg PO DAILY [facility] Last Admin: 11/18/18 11:07 Dose: 10 mg Clonidine HCl (Catapres) 0.2 mg PO TID [facility] Last Admin: 11/17/18 18:02 Dose: 0.2 mg Dextrose (Dextrose 50% Inj) 0 ml IV STAT PRN; Protocol PRN Reason: Hypoglycemia Protocol Dextrose (Glutose 15) 0 gm PO ONCE PRN; Protocol PRN Reason: Hypoglycemia Protocol Glucagon (Glucagen Diagnostic Kit) 0 mg IM STAT PRN; Protocol PRN Reason: Hypoglycemia Protocol Heparin Sodium (Porcine) (Heparin) 5,000 units SC Q12 [facility]; Protocol Last Admin: 11/18/18 10:57 Dose: Not Given Vancomycin HCl 1 gm/ Sodium (Chloride) 250 mls @ 166.667 mls/hr IVPB Q24H [facility]; Protocol Last Admin: 11/17/18 14:02 Dose: 166.667 mls/hr Metronidazole (Flagyl 500mg/100ml Ns) 100 mls @ 100 mls/hr IVPB Q8@0600,1400,2200 [facility]; Protocol Last Admin: 11/18/18 05:20 Dose: 100 mls/hr Lactated Ringer's (Lactated Ringer's) 1,000 mls @ 60 mls/hr IV .[id number] [facility] Last Admin: 11/18/18 04:35 Dose: 60 mls/hr Insulin Detemir (Levemir) 30 units SC HS [facility] Last Admin: 11/17/18 22:00 Dose: Not Given Insulin Human Lispro (Humalog) 0 units SC ACHS [facility]; Protocol Last Admin: 11/18/18 07:30 Dose: Not Given Ketorolac Tromethamine (Toradol) 30 mg IVP Q6 PRN PRN Reason: Pain, moderate (4-7) Last Admin: 11/17/18 22:31 Dose: 30 mg Metoprolol Tartrate (Lopressor) 100 mg PO BID [facility] Last Admin: 11/18/18 11:08 Dose: 100 mg Ondansetron HCl (Zofran Inj) 4 mg IVP Q4 PRN PRN Reason: Nausea/Vomiting Last Admin: 11/18/18 01:08 Dose: 4 mg Saccharomyces Boulardii (Florastor) 250 mg PO BID [facility] Last Admin: 11/18/18 11:07 Dose: 250 mg Silver Sulfadiazine (Silvadene 1% 20 Gm) 0 ea TOP DAILY [facility] Last Admin: 11/17/18 18:00 Dose: Not Given Vancomycin HCl (Vancocin (Oral/Rectal Use)) 250 mg PO Q6H [facility]; Protocol Last Admin: 11/18/18 11:11 Dose: 250 mg - Labs Labs: 11/17/18 05:55 11/17/18 05:55 PT 11.4 Seconds (9.8-13.1) 11/14/18 09:15 INR 1.0 11/14/18 09:15 APTT 30.1 Seconds (25.6-37.1) 11/14/18 09:15 - Constitutional Appears: Chronically Ill - Head Exam Head Exam: ATRAUMATIC, NORMAL INSPECTION, NORMOCEPHALIC - Eye Exam Eye Exam: EOMI, Normal appearance, PERRL Pupil Exam: NORMAL ACCOMODATION, PERRL - ENT Exam ENT Exam: Mucous Membranes Moist, Normal Exam - Neck Exam Neck Exam: Full ROM, Normal Inspection. absent: Lymphadenopathy - Respiratory Exam Respiratory Exam: Clear to Ausculation Bilateral, NORMAL BREATHING PATTERN - Cardiovascular Exam Cardiovascular Exam: REGULAR RHYTHM, +S1, +S2. absent: Murmur - GI/Abdominal Exam GI & Abdominal Exam: Soft, Normal Bowel Sounds. absent: Tenderness - Rectal Exam Rectal Exam: NORMAL INSPECTION - Extremities Exam Extremities Exam: Full ROM. absent: Joint Swelling, Pedal Edema Additional comments: LEG/FOOT ULCERS - Back Exam Back Exam: NORMAL INSPECTION - Neurological Exam Neurological Exam: Alert, Awake, CN II-XII Intact, Normal Gait, Oriented x3 - Psychiatric Exam Psychiatric exam: Normal Affect, Normal Mood - Skin Skin Exam: Dry, Intact, Normal Color, Warm Assessment and Plan - Assessment and Plan (Free Text) Assessment: PYELONEPHRITIS IMPROVED C.DIF COLITIS IMPROVED LEG/FOOT ULCERS DM HTN Plan: MEDICALLY CLEARED FOR SURGERY
[2018-11-18] MEDS ORDERED: Succinylcholine 200 mg/10 ml Inj IV ONE (12:37)
[2018-11-18] MEDS ORDERED: Propofol 10 mg/ml Inj (20 ML) ONE ×2 (12:38→12:45)
[2018-11-18] MEDS ORDERED: ePHEDrine 50 mg/ml Inj ONE (12:39)
[2018-11-18] MEDS ORDERED: Midazolam 2 MG/2 ML VIAL ONE (12:39)
[2018-11-18] MEDS ORDERED: Lactated Ringer's 1,000 ML IV ONE (12:43)
--- NOTE | 2018-11-18 12:56 | CP.PCM.PN ---
Subjective - Date & Time of Evaluation Date of Evaluation: 11/18/18 Time of Evaluation: 09:00 - Subjective Subjective: no diarrhea going for skin grafrt Vanco levels ok Objective - Vital Signs/Intake and Output Vital Signs (last 24 hours): Temp Pulse Resp BP Pulse Ox 97.8 F 87 20 157/90 H 99 11/18/18 08:12 11/18/18 11:08 11/18/18 08:12 11/18/18 11:08 11/18/18 08:12 - Medications Medications: Current Medications Acetaminophen (Tylenol 325mg Tab) 650 mg PO Q4 PRN PRN Reason: Fever >100.4 F Amlodipine Besylate (Norvasc) 10 mg PO DAILY [facility] Last Admin: 11/18/18 11:07 Dose: 10 mg Clonidine HCl (Catapres) 0.2 mg PO TID [facility] Last Admin: 11/17/18 18:02 Dose: 0.2 mg Dextrose (Dextrose 50% Inj) 0 ml IV STAT PRN; Protocol PRN Reason: Hypoglycemia Protocol Dextrose (Glutose 15) 0 gm PO ONCE PRN; Protocol PRN Reason: Hypoglycemia Protocol Glucagon (Glucagen Diagnostic Kit) 0 mg IM STAT PRN; Protocol PRN Reason: Hypoglycemia Protocol Heparin Sodium (Porcine) (Heparin) 5,000 units SC Q12 [facility]; Protocol Last Admin: 11/18/18 10:57 Dose: Not Given Vancomycin HCl 1 gm/ Sodium (Chloride) 250 mls @ 166.667 mls/hr IVPB Q24H [facility]; Protocol Last Admin: 11/17/18 14:02 Dose: 166.667 mls/hr Metronidazole (Flagyl 500mg/100ml Ns) 100 mls @ 100 mls/hr IVPB Q8@0600,1400,2200 [facility]; Protocol Last Admin: 11/18/18 05:20 Dose: 100 mls/hr Lactated Ringer's (Lactated Ringer's) 1,000 mls @ 60 mls/hr IV .[id number] [facility] Last Admin: 11/18/18 04:35 Dose: 60 mls/hr Insulin Detemir (Levemir) 30 units SC HS [facility] Last Admin: 11/17/18 22:00 Dose: Not Given Insulin Human Lispro (Humalog) 0 units SC ACHS [facility]; Protocol Last Admin: 11/18/18 07:30 Dose: Not Given Ketorolac Tromethamine (Toradol) 30 mg IVP Q6 PRN PRN Reason: Pain, moderate (4-7) Last Admin: 11/17/18 22:31 Dose: 30 mg Metoprolol Tartrate (Lopressor) 100 mg PO BID [facility] Last Admin: 11/18/18 11:08 Dose: 100 mg Ondansetron HCl (Zofran Inj) 4 mg IVP Q4 PRN PRN Reason: Nausea/Vomiting Last Admin: 11/18/18 01:08 Dose: 4 mg Saccharomyces Boulardii (Florastor) 250 mg PO BID [facility] Last Admin: 11/18/18 11:07 Dose: 250 mg Silver Sulfadiazine (Silvadene 1% 20 Gm) 0 ea TOP DAILY [facility] Last Admin: 11/17/18 18:00 Dose: Not Given Vancomycin HCl (Vancocin (Oral/Rectal Use)) 250 mg PO Q6H [facility]; Protocol Last Admin: 11/18/18 11:11 Dose: 250 mg - Labs Labs: 11/17/18 05:55 11/17/18 05:55 PT 11.4 Seconds (9.8-13.1) 11/14/18 09:15 INR 1.0 11/14/18 09:15 APTT 30.1 Seconds (25.6-37.1) 11/14/18 09:15 - Constitutional Appears: No Acute Distress, Chronically Ill - Head Exam Head Exam: ATRAUMATIC, NORMAL INSPECTION, NORMOCEPHALIC - Eye Exam Eye Exam: EOMI, Normal appearance, PERRL Pupil Exam: NORMAL ACCOMODATION, PERRL - ENT Exam ENT Exam: Mucous Membranes Moist, Normal Exam - Neck Exam Neck Exam: Full ROM, Normal Inspection. absent: Lymphadenopathy - Respiratory Exam Respiratory Exam: Clear to Ausculation Bilateral, NORMAL BREATHING PATTERN - Cardiovascular Exam Cardiovascular Exam: REGULAR RHYTHM, +S1, +S2. absent: Murmur - GI/Abdominal Exam GI & Abdominal Exam: Soft, Normal Bowel Sounds. absent: Tenderness - Rectal Exam Rectal Exam: NORMAL INSPECTION - Exam Exam: Circumcision, NORMAL INSPECTION External exam: NORMAL EXTERNAL EXAM Speculum exam: NORMAL SPECULUM EXAM Bimanual exam: NORMAL BIMANUAL EXAM - Extremities Exam Extremities Exam: Full ROM, Pedal Edema. absent: Joint Swelling, Normal Capillary Refill, Normal Inspection, Tenderness - Back Exam Back Exam: absent: NORMAL INSPECTION - Neurological Exam Neurological Exam: Alert, Awake, CN II-XII Intact, Normal Gait, Oriented x3 - Psychiatric Exam Psychiatric exam: Normal Affect, Normal Mood - Skin Skin Exam: Dry. absent: Intact, Normal Color Assessment and Plan (1) Pyelonephritis Status: Suspected (2) Abdominal pain Status: Acute (3) Abnormal kidney function Status: Acute - Assessment and Plan (Free Text) Assessment: ana middleton cont rx
[2018-11-18] MEDS ORDERED: Liquid Adhesive TOP ONE (13:07)
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
[2018-11-18] MEDS ORDERED: HYDROmorphone 0.5 mg/0.5 ml ISec IVP PRN (13:46)
[2018-11-18] MEDS ORDERED: Lactated Ringer's 1,000 ML IV SCH (14:00)
--- NOTE | 2018-11-18 15:02 | US ---
Date of service: 11/17/2018 PROCEDURE: Duplex ultrasound of the bilateral lower extremity arteries. HISTORY: evaluate vasculature of bilateral lower extremitie COMPARISON: None available. TECHNIQUE: Grayscale and duplex Doppler evaluation of the bilateral common femoral, superficial femoral, popliteal, posterior tibial and dorsalis pedis arteries was performed.. FINDINGS: RIGHT LOWER EXTREMITY: RIGHT COMMON FEMORAL ARTERY: Widely patent. Maximal flow velocity of 61.9 cm/s. RIGHT SUPERFICIAL FEMORAL ARTERY: Widely patent. Maximal flow velocity of 89.5 cm/s. RIGHT POPLITEAL ARTERY:Widely patent. Maximal flow velocity of 48.2 cm/s. RIGHT POSTERIOR TIBIAL ARTERY: Widely patent. Maximal flow velocity of 63.3 cm/s. RIGHT DORSALIS PEDIS ARTERY: Widely patent. Maximal flow velocity of 74.9 cm/s. LEFT LOWER EXTREMITY: LEFT COMMON FEMORAL ARTERY: Widely patent. Maximal flow velocity of 108.2 cm/s. LEFT SUPERFICIAL FEMORAL ARTERY: Widely patent. Maximal flow velocity of 91.7 cm/s. LEFT POPLITEAL ARTERY:Widely patent. Maximal flow velocity of 41.2 cm/s. LEFT POSTERIOR TIBIAL ARTERY: Widely patent. Maximal flow velocity of 69.0 cm/s. LEFT DORSALIS PEDIS ARTERY: Nondiagnostic assessment. The left ankle/dorsalis pedis artery are covered with dressing/bandages. OTHER FINDINGS: None. IMPRESSION: Normal Duplex Doppler of the bilateral lower extremity arteries.
[2018-11-18] MEDS ORDERED: Metoprolol 1 mg/ml Inj IVP ONE (16:15)
[2018-11-18] MEDS ORDERED: EnalaprilAT 1.25 mg/ml Inj IV ONE (21:30)
[2018-11-18] MEDS ORDERED: Labetalol 5mg/ml (4ml) IVP STA (22:28)
[2018-11-18] MEDS: Insulin Detemir 100 Units/ml Inj SC SCH (22:44)
--- NOTE | 2018-11-18 23:02 | PCM.RRT ---
BRANCH ADMINISTRATOR Nurse Assessment - Situation BRANCH ADMINISTRATOR Responder Arrival Time: 10:16 I.Reason for BRANCH ADMINISTRATOR - A) Acute Change in Patient: Subjective: BRANCH ADMINISTRATOR BRANCH ADMINISTRATOR Time: 10:24pm BRANCH ADMINISTRATOR Location: south BRANCH ADMINISTRATOR Arrival: 10:25pm BRANCH ADMINISTRATOR Reason: Elevated BP S: Pt is a 28 yo M with a pmh of DM, HTN, Charcot foot, Arthritis admitted to [facility] due to pyleonephritis, CORNEL, and hyperglycemia BRANCH ADMINISTRATOR was called due Elevated BP, Pt only reports nausea, denies chest pain. O: BRANCH ADMINISTRATOR Vitals: BP: 178/118 HR: 80 RR: 17 O2Sat 99% on 2L NC General: NAD, unlabored breathing HEENT: Nasal cannula 2L Cardiac: RRR, no m/r/g Resp: CTA, no wheezes, rales, or rhonchi Abdo: soft, nontender to palpation, Hyperactive bowel sounds, no tympany, no guarding, no rigidity Extrem: L ankle dressing c/d/i. R Lower extremity yandel bandage c/d/i. Pt has chronic peripheral vascular disease changes, charcot deformity Skin: dry BRANCH ADMINISTRATOR intervention: Accucheck 385 Labetalol 20mg once Levemir 30 units once Clonidine 0.2mg once (Pt refused 14 units of Humalin R) Dr Wahl notified A/P: Pt is a 28 yo M with a pmh of DM, HTN, Charcot foot, Arthritis admitted to [facility] due to pyleonephritis, CORNEL, and hyperglycemia BRANCH ADMINISTRATOR was called due Elevated BP BRANCH ADMINISTRATOR Outcome: BP came down, pt transfered to Telemetry 414 BRANCH ADMINISTRATOR vitals: BP:160/105 RR 17 O2 Sat:99% on 2 L, HR 80 T: 98.1 BRANCH ADMINISTRATOR end: 10:48pm BRANCH ADMINISTRATOR Leader: Dr. Pablo BRANCH ADMINISTRATOR residents: Dr. Leavitt PGY [address] Yadav PGY 1
[2018-11-19] MEDS: metroNIDAZOLE 500mg/100ml NS 100 ML IVPB SCH ×4 (00:05→21:07)
[2018-11-19] MEDS: Vancomycin 500 mg (Oral/Rectal USE) PO SCH ×5 (00:11→21:57)
[2018-11-19] MEDS: Insulin Lispro (humaLOG) 100 Units/ml Inj SC SCH ×5 (00:28→21:54)
[2018-11-19] MEDS: Lactated Ringer's 1,000 ML IV SCH ×2 (00:55→16:52)
[2018-11-19] MEDS: Saccharomyces Boulardi 250 mg Cap PO SCH ×2 (09:42→16:17)
[2018-11-19] MEDS: Silver Sulfadiazine 1% Cream (20 gm) TOP SCH (09:45)
--- NOTE | 2018-11-19 10:36 | CP.PCM.PN ---
Subjective - Date & Time of Evaluation Date of Evaluation: 11/19/18 Time of Evaluation: 10:35 - Subjective Subjective: Podiatry Progress Note: Dr. Rosa 28 year old male patient seen and evaluated at bedside for B/L lower extremity ulcerations with L charcot deformity, POD#1 R leg graft deployment. AAOx3 in NAD. Denies N/F/SOB. Dressing d/c/i. States he doesnt have a home and lives in a homeless [facility]. States he would like to go to [facility].Patient was transferred to [facility] floor due to high blood pressure Objective - Vital Signs/Intake and Output Vital Signs (last 24 hours): Temp Pulse Resp BP Pulse Ox 98.3 F 81 20 138/89 98 11/19/18 08:25 11/19/18 09:44 11/19/18 08:25 11/19/18 09:44 11/19/18 08:25 - Medications Medications: Current Medications Acetaminophen (Tylenol 325mg Tab) 650 mg PO Q4 PRN PRN Reason: Fever >100.4 F Amlodipine Besylate (Norvasc) 10 mg PO DAILY [facility] Last Admin: 11/19/18 09:44 Dose: 10 mg Clonidine HCl (Catapres) 0.2 mg PO TID [facility] Last Admin: 11/19/18 09:42 Dose: 0.2 mg Dextrose (Dextrose 50% Inj) 0 ml IV STAT PRN; Protocol PRN Reason: Hypoglycemia Protocol Dextrose (Glutose 15) 0 gm PO ONCE PRN; Protocol PRN Reason: Hypoglycemia Protocol Glucagon (Glucagen Diagnostic Kit) 0 mg IM STAT PRN; Protocol PRN Reason: Hypoglycemia Protocol Heparin Sodium (Porcine) (Heparin) 5,000 units SC Q12 [facility]; Protocol Last Admin: 11/19/18 09:43 Dose: 5,000 units Vancomycin HCl 1 gm/ Sodium (Chloride) 250 mls @ 166.667 mls/hr IVPB Q24H [facility]; Protocol Last Admin: 11/18/18 16:14 Dose: 250 mls Metronidazole (Flagyl 500mg/100ml Ns) 100 mls @ 100 mls/hr IVPB Q8@0600,1400,2200 [facility]; Protocol Last Admin: 11/19/18 06:04 Dose: 100 mls/hr Lactated Ringer's (Lactated Ringer's) 1,000 mls @ 60 mls/hr IV .[id number] [facility] Last Admin: 11/19/18 00:55 Dose: 60 mls/hr Insulin Detemir (Levemir) 30 units SC HS [facility] Last Admin: 11/18/18 22:44 Dose: 30 units Insulin Human Lispro (Humalog) 0 units SC ACHS [facility]; Protocol Last Admin: 11/19/18 07:01 Dose: 5 unit Metoprolol Tartrate (Lopressor) 100 mg PO BID [facility] Last Admin: 11/19/18 09:41 Dose: 100 mg Ondansetron HCl (Zofran Inj) 4 mg IVP Q4 PRN PRN Reason: Nausea/Vomiting Last Admin: 11/18/18 21:00 Dose: 4 mg Saccharomyces Boulardii (Florastor) 250 mg PO BID [facility] Last Admin: 11/19/18 09:42 Dose: 250 mg Silver Sulfadiazine (Silvadene 1% 20 Gm) 0 ea TOP DAILY [facility] Last Admin: 11/19/18 09:45 Dose: 1 applic Vancomycin HCl (Vancocin (Oral/Rectal Use)) 250 mg PO Q6H [facility]; Protocol Last Admin: 11/19/18 09:46 Dose: 250 mg - Labs Labs: 11/17/18 05:55 11/17/18 05:55 PT 11.4 Seconds (9.8-13.1) 11/14/18 09:15 INR 1.0 11/14/18 09:15 APTT 30.1 Seconds (25.6-37.1) 11/14/18 09:15 - Constitutional Appears: Well, Non-toxic, No Acute Distress - Head Exam Head Exam: ATRAUMATIC, NORMOCEPHALIC - Eye Exam Eye Exam: Normal appearance Pupil Exam: NORMAL ACCOMODATION - ENT Exam ENT Exam: Mucous Membranes Moist - Respiratory Exam Respiratory Exam: NORMAL BREATHING PATTERN - Cardiovascular Exam Cardiovascular Exam: REGULAR RHYTHM, +S1, +S2 - Extremities Exam Additional comments: RLE dressings left clean/dry/intact CFT < 3 seconds Patient able to wiggle toes LLE: VASC: DP and PT 2/4, temperature gradient warm to warm to bilateral lower extremity, CFT < 3 seconds, edema noted to the anterior lateral aspect of the left lower extremity ORTHO: MMT is 5/5 in all four compartments, collapsed arch on left secondary to charcot deformity NEURO: gross and protective sensation intact DERM: LLE ulceration appreciated to the 5th metatarsal , approximately 2.0x1.5x.5cm, and lateral malleolus, approximately 2.5x1x.2cm, with mixed fibrous/granular base, mild serous/sanginous drainage appreciated - Neurological Exam Neurological Exam: Alert, Awake Assessment and Plan - Assessment and Plan (Free Text) Assessment: 28 year old male patient seen and evaluated at bedside for B/L lower extremity ulcerations with L charcot deformity, POD#1right leg graft deployment Plan: Patient seen and evaluated Discussed with attending, Dr. Rosa Blood culture; Streptococcus Species L ankle and foot xrays ordered; Findings consistent with Charcot joint. Destru ctive changes of midfoot bones as well as the distal margins of the tibia and fibular. Note that superimposed infection-chronic OM not excluded Local wound care to L lower extremity; silvadene, xeroform, DSD ; right dressing to be kept dry, clean and intact Surgical dressing left clean, dry, intact. Vasc consulted; reccs appreciated; Due to patient's poor vasculature from diabetes, will evaluate with arterial duplex since patient is not a candidate for CTA of bilateral lower extremities due to renal function. ID consulted; reccs appreciated Patient stable for d/c from podiatry point of view, patient will continue to follow up with Dr. Rosa. Keep dressing d/c/i
--- NOTE | 2018-11-19 12:20 | CP.PCM.PN ---
Subjective - Date & Time of Evaluation Date of Evaluation: 11/19/18 Time of Evaluation: 12:21 - Subjective Subjective: TRANSFERRED TO [facility] BECAUSE OF ELEVATED BP FEELS BETTER TODAY--BP BETTER CONTROLLED DIARRHEA IMPROVED LEG PAINS PERSIST Objective - Vital Signs/Intake and Output Vital Signs (last 24 hours): Temp Pulse Resp BP Pulse Ox 98.3 F 81 20 138/89 98 11/19/18 08:25 11/19/18 09:44 11/19/18 08:25 11/19/18 09:44 11/19/18 08:25 - Medications Medications: Current Medications Acetaminophen (Tylenol 325mg Tab) 650 mg PO Q4 PRN PRN Reason: Fever >100.4 F Amlodipine Besylate (Norvasc) 10 mg PO DAILY [facility] Last Admin: 11/19/18 09:44 Dose: 10 mg Clonidine HCl (Catapres) 0.2 mg PO TID [facility] Last Admin: 11/19/18 09:42 Dose: 0.2 mg Dextrose (Dextrose 50% Inj) 0 ml IV STAT PRN; Protocol PRN Reason: Hypoglycemia Protocol Dextrose (Glutose 15) 0 gm PO ONCE PRN; Protocol PRN Reason: Hypoglycemia Protocol Glucagon (Glucagen Diagnostic Kit) 0 mg IM STAT PRN; Protocol PRN Reason: Hypoglycemia Protocol Heparin Sodium (Porcine) (Heparin) 5,000 units SC Q12 [facility]; Protocol Last Admin: 11/19/18 09:43 Dose: 5,000 units Vancomycin HCl 1 gm/ Sodium (Chloride) 250 mls @ 166.667 mls/hr IVPB Q24H [facility]; Protocol Last Admin: 11/18/18 16:14 Dose: 250 mls Metronidazole (Flagyl 500mg/100ml Ns) 100 mls @ 100 mls/hr IVPB Q8@0600,1400,2200 [facility]; Protocol Last Admin: 11/19/18 06:04 Dose: 100 mls/hr Lactated Ringer's (Lactated Ringer's) 1,000 mls @ 60 mls/hr IV .[id number] [facility] Last Admin: 11/19/18 00:55 Dose: 60 mls/hr Insulin Detemir (Levemir) 30 units SC HS [facility] Last Admin: 11/18/18 22:44 Dose: 30 units Insulin Human Lispro (Humalog) 0 units SC ACHS [facility]; Protocol Last Admin: 11/19/18 07:01 Dose: 5 unit Metoprolol Tartrate (Lopressor) 100 mg PO BID [facility] Last Admin: 11/19/18 09:41 Dose: 100 mg Ondansetron HCl (Zofran Inj) 4 mg IVP Q4 PRN PRN Reason: Nausea/Vomiting Last Admin: 11/18/18 21:00 Dose: 4 mg Saccharomyces Boulardii (Florastor) 250 mg PO BID [facility] Last Admin: 11/19/18 09:42 Dose: 250 mg Silver Sulfadiazine (Silvadene 1% 20 Gm) 0 ea TOP DAILY [facility] Last Admin: 11/19/18 09:45 Dose: 1 applic Vancomycin HCl (Vancocin (Oral/Rectal Use)) 250 mg PO Q6H [facility]; Protocol Last Admin: 11/19/18 09:46 Dose: 250 mg - Labs Labs: 11/17/18 05:55 11/17/18 05:55 PT 11.4 Seconds (9.8-13.1) 11/14/18 09:15 INR 1.0 11/14/18 09:15 APTT 30.1 Seconds (25.6-37.1) 11/14/18 09:15 - Constitutional Appears: Chronically Ill - Head Exam Head Exam: ATRAUMATIC, NORMAL INSPECTION, NORMOCEPHALIC - Eye Exam Eye Exam: EOMI, Normal appearance, PERRL Pupil Exam: NORMAL ACCOMODATION, PERRL - ENT Exam ENT Exam: Mucous Membranes Moist, Normal Exam - Neck Exam Neck Exam: Full ROM, Normal Inspection. absent: Lymphadenopathy - Respiratory Exam Respiratory Exam: Clear to Ausculation Bilateral, NORMAL BREATHING PATTERN - Cardiovascular Exam Cardiovascular Exam: REGULAR RHYTHM, +S1, +S2. absent: Murmur - GI/Abdominal Exam GI & Abdominal Exam: Soft, Normal Bowel Sounds. absent: Tenderness - Rectal Exam Rectal Exam: NORMAL INSPECTION - Extremities Exam Extremities Exam: Full ROM, Normal Capillary Refill, Normal Inspection, Tenderness. absent: Joint Swelling, Pedal Edema Additional comments: S/P SKIN GRAFT OF R FOOT - Back Exam Back Exam: NORMAL INSPECTION - Neurological Exam Neurological Exam: Alert, Awake, CN II-XII Intact, Normal Gait, Oriented x3 - Psychiatric Exam Psychiatric exam: Normal Affect, Normal Mood - Skin Skin Exam: Dry, Intact, Normal Color, Warm Assessment and Plan - Assessment and Plan (Free Text) Assessment: PYELONEPHRITIS--IMPROVED FOOT ULCERS--CHARCOTS HTN--BETTER CONTROLLED DM Plan: MAY TRANSFER TO MED/SURG BACTERIOLOGY PROFESSOR FOR SUBACUTE CARE
--- NOTE | 2018-11-19 14:13 | CP.PCM.PN ---
Subjective - Date & Time of Evaluation Date of Evaluation: 11/19/18 Time of Evaluation: 01:50 - Subjective Subjective: Events noted. Transferred to Telemetry because of uncontriolled BPs. Today feels better. Objective - Vital Signs/Intake and Output Vital Signs (last 24 hours): Temp Pulse Resp BP Pulse Ox 98.0 F 88 20 120/87 98 11/19/18 12:20 11/19/18 12:20 11/19/18 12:20 11/19/18 12:20 11/19/18 12:20 - Medications Medications: Current Medications Acetaminophen (Tylenol 325mg Tab) 650 mg PO Q4 PRN PRN Reason: Fever >100.4 F Amlodipine Besylate (Norvasc) 10 mg PO DAILY [facility] Last Admin: 11/19/18 09:44 Dose: 10 mg Clonidine HCl (Catapres) 0.2 mg PO TID [facility] Last Admin: 11/19/18 09:42 Dose: 0.2 mg Dextrose (Dextrose 50% Inj) 0 ml IV STAT PRN; Protocol PRN Reason: Hypoglycemia Protocol Dextrose (Glutose 15) 0 gm PO ONCE PRN; Protocol PRN Reason: Hypoglycemia Protocol Glucagon (Glucagen Diagnostic Kit) 0 mg IM STAT PRN; Protocol PRN Reason: Hypoglycemia Protocol Heparin Sodium (Porcine) (Heparin) 5,000 units SC Q12 [facility]; Protocol Last Admin: 11/19/18 09:43 Dose: 5,000 units Vancomycin HCl 1 gm/ Sodium (Chloride) 250 mls @ 166.667 mls/hr IVPB Q24H [facility]; Protocol Last Admin: 11/18/18 16:14 Dose: 250 mls Metronidazole (Flagyl 500mg/100ml Ns) 100 mls @ 100 mls/hr IVPB Q8@0600,1400,2200 [facility]; Protocol Last Admin: 11/19/18 06:04 Dose: 100 mls/hr Lactated Ringer's (Lactated Ringer's) 1,000 mls @ 60 mls/hr IV .[id number] [facility] Last Admin: 11/19/18 00:55 Dose: 60 mls/hr Insulin Detemir (Levemir) 30 units SC HS [facility] Last Admin: 11/18/18 22:44 Dose: 30 units Insulin Human Lispro (Humalog) 0 units SC ACHS [facility]; Protocol Last Admin: 11/19/18 07:01 Dose: 5 unit Metoprolol Tartrate (Lopressor) 100 mg PO BID [facility] Last Admin: 11/19/18 09:41 Dose: 100 mg Ondansetron HCl (Zofran Inj) 4 mg IVP Q4 PRN PRN Reason: Nausea/Vomiting Last Admin: 11/18/18 21:00 Dose: 4 mg Saccharomyces Boulardii (Florastor) 250 mg PO BID [facility] Last Admin: 11/19/18 09:42 Dose: 250 mg Silver Sulfadiazine (Silvadene 1% 20 Gm) 0 ea TOP DAILY [facility] Last Admin: 11/19/18 09:45 Dose: 1 applic Vancomycin HCl (Vancocin (Oral/Rectal Use)) 250 mg PO Q6H [facility]; Protocol Last Admin: 11/19/18 09:46 Dose: 250 mg - Labs Labs: 11/17/18 05:55 11/17/18 05:55 PT 11.4 Seconds (9.8-13.1) 11/14/18 09:15 INR 1.0 11/14/18 09:15 APTT 30.1 Seconds (25.6-37.1) 11/14/18 09:15 - Constitutional Appears: No Acute Distress - Eye Exam Additional comments: Conjunctiva pink. No icterus. - ENT Exam ENT Exam: Mucous Membranes Moist - Respiratory Exam Respiratory Exam: NORMAL BREATHING PATTERN Additional comments: Lungs clear - Cardiovascular Exam Cardiovascular Exam: REGULAR RHYTHM - GI/Abdominal Exam Additional comments: Abdomen soft. No significant tenderness - Extremities Exam Additional comments: Both legs dressed Assessment and Plan - Assessment and Plan (Free Text) Assessment: Stage 11 kidney dis/Diabetic nephropathy. Todays labs are pending HTN BP is improving C.diff colitis Plan: Continue to monitor renal function & blood pressure
--- NOTE | 2018-11-19 14:37 | PCM.OP ---
Operative Report - Operative Report Date of Surgery/Procedure: 11/18/18 Time of Surgery/Procedure: 01:00 Surgeon: Dr. Moe DPM Headwaiter/Headwaitress: Dr. Vera Miranda PGY1 Anesthesia/Sedation: MAC Pre-Operative Diagnosis: Right anterior Leg Burn Wound Post-Operative Diagnosis: same as above Indication for Surgery: Name of Procedure: 1) Right Leg Application of Polarity Full Thickness Skin Graft Indications: The patient is a 28 year-old male with the above diagnoses. The patient has exhausted all conservative treatment at this time and now requires surgical intervention. The patient signed the consent after careful explanation of risks, benefits, complications and alternatives for surgical procedure. No guarantees were given nor implied. NPO status was confirmed prior to taking patient to the OR. Operative Findings: Preparation: The patient was brought in to the operating room and placed on the operating room table in a supine position. Timeout was performed for identification of the correct patient and procedure. Right leg were then prepped and draped in normal sterile manner and the procedure began. No tourniquet was used during the procedure. Procedure/Operation Description: Procedure 1: Attention was then drawn to the right anterior leg wound measuring 10 cm X 6.5 cm. Polarity graft was applied directly to the wound bed, and then the Silicone layer was applied over the graft. Silicone dressing was utilized to spread the graft over the wound. The silicone dressing was sec ured around the wound with Mastisol. The wound was dressed with gauze, kerlix, and finally wrapped in an CESAR. Estimated Blood Loss: 2 cc Complications: none Discharge & Condition: Postoperative Condition: The patient tolerated the anesthesia and procedure well and was escorted to the recovery room with neurovascular status intact to right lower extremity and vital signs stable. Patient stable for discharge and will follow up with Dr. Rosa in 1 week at the [facility]
[2018-11-19] MEDS ORDERED: Alum-Mag Hydrox-Simethicone Susp (30 mL) PO ONE (20:11)
[2018-11-19] MEDS: Insulin Detemir 100 Units/ml Inj SC SCH (21:59)
[2018-11-20] MEDS: metroNIDAZOLE 500mg/100ml NS 100 ML IVPB SCH ×3 (05:28→21:15)
[2018-11-20] MEDS: Saccharomyces Boulardi 250 mg Cap PO SCH ×2 (08:44→16:36)
[2018-11-20] MEDS: Insulin Lispro (humaLOG) 100 Units/ml Inj SC SCH ×3 (08:46→21:57)
[2018-11-20] MEDS: Lactated Ringer's 1,000 ML IV SCH (08:50)
[2018-11-20] MEDS ORDERED: Pantoprazole 40 mg EC Tab PO SCH (09:00)
--- NOTE | 2018-11-20 10:23 | CP.PCM.PN ---
Subjective - Date & Time of Evaluation Date of Evaluation: 11/20/18 Time of Evaluation: 10:21 - Subjective Subjective: Podiatry Progress Note: Dr. Rosa 28 year old male patient seen and evaluated at bedside for B/L lower extremity ulcerations with L charcot deformity, POD#2 R leg graft deployment. AAOx3 in NAD. Patient is seen vomiting, admits to being nauseous since 3 am, denies any other acute overnight events. Dressing d/c/i. States he doesnt have a home and lives in a homeless [facility]. Objective - Vital Signs/Intake and Output Vital Signs (last 24 hours): Temp Pulse Resp BP Pulse Ox 98.1 F 83 20 156/103 H 97 11/20/18 07:56 11/20/18 08:47 11/20/18 07:56 11/20/18 08:47 11/20/18 07:56 - Medications Medications: Current Medications Acetaminophen (Tylenol 325mg Tab) 650 mg PO Q4 PRN PRN Reason: Fever >100.4 F Last Admin: 11/20/18 02:56 Dose: 650 mg Acetaminophen (Tylenol 650 Mg Supp) 650 mg [place] Q4 PRN PRN Reason: Headache Amlodipine Besylate (Norvasc) 10 mg PO DAILY [facility] Last Admin: 11/20/18 08:47 Dose: 10 mg Clonidine HCl (Catapres) 0.2 mg PO TID [facility] Last Admin: 11/20/18 08:43 Dose: 0.2 mg Dextrose (Dextrose 50% Inj) 0 ml IV STAT PRN; Protocol PRN Reason: Hypoglycemia Protocol Dextrose (Glutose 15) 0 gm PO ONCE PRN; Protocol PRN Reason: Hypoglycemia Protocol Glucagon (Glucagen Diagnostic Kit) 0 mg IM STAT PRN; Protocol PRN Reason: Hypoglycemia Protocol Heparin Sodium (Porcine) (Heparin) 5,000 units SC Q12 [facility]; Protocol Last Admin: 11/20/18 08:44 Dose: 5,000 units Vancomycin HCl 1 gm/ Sodium (Chloride) 250 mls @ 166.667 mls/hr IVPB Q24H [facility]; Protocol Last Admin: 11/19/18 15:51 Dose: 166.667 mls/hr Metronidazole (Flagyl 500mg/100ml Ns) 100 mls @ 100 mls/hr IVPB Q8 @0600,1400,2200 [facility]; Protocol Last Admin: 11/20/18 05:28 Dose: 100 mls/hr Lactated Ringer's (Lactated Ringer's) 1,000 mls @ 60 mls/hr IV .[id number] [facility] Last Admin: 11/20/18 08:50 Dose: 60 mls/hr Insulin Detemir (Levemir) 30 units SC HS [facility] Last Admin: 11/19/18 21:59 Dose: 30 units Insulin Human Lispro (Humalog) 0 units SC ACHS [facility]; Protocol Last Admin: 11/20/18 08:46 Dose: Not Given Metoprolol Tartrate (Lopressor) 100 mg PO BID [facility] Last Admin: 11/20/18 08:47 Dose: 100 mg Ondansetron HCl (Zofran Inj) 4 mg IVP Q4 PRN PRN Reason: Nausea/Vomiting Last Admin: 11/20/18 08:49 Dose: 4 mg Pantoprazole Sodium (Protonix Ec Tab) 40 mg PO DAILY [facility] Last Admin: 11/20/18 08:48 Dose: 40 mg Saccharomyces Boulardii (Florastor) 250 mg PO BID [facility] Last Admin: 11/20/18 08:44 Dose: 250 mg Silver Sulfadiazine (Silvadene 1% 20 Gm) 0 ea TOP DAILY [facility] Last Admin: 11/19/18 09:45 Dose: 1 applic Vancomycin HCl (Vancocin (Oral/Rectal Use)) 250 mg PO Q6H [facility]; Protocol Last Admin: 11/19/18 21:57 Dose: 250 mg - Labs Labs: 11/17/18 05:55 11/17/18 05:55 PT 11.4 Seconds (9.8-13.1) 11/14/18 09:15 INR 1.0 11/14/18 09:15 APTT 30.1 Seconds (25.6-37.1) 11/14/18 09:15 - Constitutional Appears: Well, Non-toxic, No Acute Distress - Head Exam Head Exam: ATRAUMATIC, NORMOCEPHALIC - Eye Exam Eye Exam: Normal appearance Pupil Exam: NORMAL ACCOMODATION - ENT Exam ENT Exam: Mucous Membranes Moist - Respiratory Exam Respiratory Exam: NORMAL BREATHING PATTERN - Cardiovascular Exam Cardiovascular Exam: REGULAR RHYTHM, +S1, +S2 - Extremities Exam Additional comments: RLE dressings left clean/dry/intact CFT < 3 seconds Patient able to wiggle toes LLE: VASC: DP and PT 2/4, temperature gradient warm to warm to bilateral lower extremity, CFT < 3 seconds, edema noted to the anterior lateral aspect of the left lower extremity ORTHO: MMT is 5/5 in all four compartments, collapsed arch on left secondary to charcot deformity NEURO: gross and protective sensation intact DERM: LLE ulceration appreciated to the 5th metatarsal , approximately 2.0x1.5x.5cm, and lateral malleolus, approximately 2.5x1x.2cm, with mixed fibrous/granular base, mild serous/sanginous drainage appreciated - Neurological Exam Neurological Exam: Alert, Normal Gait Assessment and Plan - Assessment and Plan (Free Text) Assessment: 28 year old male patient seen and evaluated at bedside for B/L lower extremity ulcerations with L charcot deformity, POD#2right leg graft deployment Plan: Patient seen and evaluated Discussed with attending, Dr. Rosa Blood culture; Streptococcus Species L ankle and foot xrays ordered; Findings consistent with Charcot joint. Destructive changes of midfoot bones as well as the distal margins of the tibia and fibular. Note that superimposed infection-chronic OM not excluded Local wound care to L lower extremity; silvadene, xeroform, DSD ; right dressing to be kept dry, clean and intact Surgical dressing left clean, dry, intact. Vasc consulted; reccs appreciated; Due to patient's poor vasculature from diabetes, will evaluate with arterial duplex since patient is not a candidate for CTA of bilateral lower extremities due to renal function. ID consulted; reccs appreciated Patient stable for d/c from podiatry point of view, patient will continue to follow up with Dr. Rosa. Keep dressing d/c/i
--- NOTE | 2018-11-20 10:50 | CP.PCM.PN ---
Subjective - Date & Time of Evaluation Date of Evaluation: 11/20/18 Time of Evaluation: 10:00 - Subjective Subjective: Vomited this morning.Feelsa abdominal discomfort. Objective - Vital Signs/Intake and Output Vital Signs (last 24 hours): Temp Pulse Resp BP Pulse Ox 98.1 F 83 20 156/103 H 97 11/20/18 07:56 11/20/18 08:47 11/20/18 07:56 11/20/18 08:47 11/20/18 07:56 - Medications Medications: Current Medications Acetaminophen (Tylenol 325mg Tab) 650 mg PO Q4 PRN PRN Reason: Fever >100.4 F Last Admin: 11/20/18 02:56 Dose: 650 mg Acetaminophen (Tylenol 650 Mg Supp) 650 mg [place] Q4 PRN PRN Reason: Headache Amlodipine Besylate (Norvasc) 10 mg PO DAILY [facility] Last Admin: 11/20/18 08:47 Dose: 10 mg Clonidine HCl (Catapres) 0.2 mg PO TID [facility] Last Admin: 11/20/18 08:43 Dose: 0.2 mg Dextrose (Dextrose 50% Inj) 0 ml IV STAT PRN; Protocol PRN Reason: Hypoglycemia Protocol Dextrose (Glutose 15) 0 gm PO ONCE PRN; Protocol PRN Reason: Hypoglycemia Protocol Glucagon (Glucagen Diagnostic Kit) 0 mg IM STAT PRN; Protocol PRN Reason: Hypoglycemia Protocol Heparin Sodium (Porcine) (Heparin) 5,000 units SC Q12 [facility]; Protocol Last Admin: 11/20/18 08:44 Dose: 5,000 units Vancomycin HCl 1 gm/ Sodium (Chloride) 250 mls @ 166.667 mls/hr IVPB Q24H [facility]; Protocol Last Admin: 11/19/18 15:51 Dose: 166.667 mls/hr Metronidazole (Flagyl 500mg/100ml Ns) 100 mls @ 100 mls/hr IVPB Q8@0600,1400,2200 [facility]; Protocol Last Admin: 11/20/18 05:28 Dose: 100 mls/hr Lactated Ringer's (Lactated Ringer's) 1,000 mls @ 60 mls/hr IV .[id number] [facility] Last Admin: 11/20/18 08:50 Dose: 60 mls/hr Insulin Detemir (Levemir) 30 units SC HS [facility] Last Admin: 11/19/18 21:59 Dose: 30 units Insulin Human Lispro (Humalog) 0 units SC ACHS [facility]; Protocol Last Admin: 11/20/18 08:46 Dose: Not Given Metoprolol Tartrate (Lopressor) 100 mg PO BID [facility] Last Admin: 11/20/18 08:47 Dose: 100 mg Ondansetron HCl (Zofran Inj) 4 mg IVP Q4 PRN PRN Reason: Nausea/Vomiting Last Admin: 11/20/18 08:49 Dose: 4 mg Pantoprazole Sodium (Protonix Ec Tab) 40 mg PO DAILY [facility] Last Admin: 11/20/18 08:48 Dose: 40 mg Saccharomyces Boulardii (Florastor) 250 mg PO BID [facility] Last Admin: 11/20/18 08:44 Dose: 250 mg Silver Sulfadiazine (Silvadene 1% 20 Gm) 0 ea TOP DAILY [facility] Last Admin: 11/19/18 09:45 Dose: 1 applic Vancomycin HCl (Vancocin (Oral/Rectal Use)) 250 mg PO Q6H [facility]; Protocol Last Admin: 11/19/18 21:57 Dose: 250 mg - Labs Labs: 11/17/18 05:55 11/17/18 05:55 PT 11.4 Seconds (9.8-13.1) 11/14/18 09:15 INR 1.0 11/14/18 09:15 APTT 30.1 Seconds (25.6-37.1) 11/14/18 09:15 - Constitutional Appears: Non-toxic - Eye Exam Eye Exam: Normal appearance - ENT Exam ENT Exam: Mucous Membranes Moist - Neck Exam Additional comments: JVD negative - Respiratory Exam Respiratory Exam: NORMAL BREATHING PATTERN Additional comments: Lungs clear - Cardiovascular Exam Cardiovascular Exam: REGULAR RHYTHM - GI/Abdominal Exam Additional comments: Abdome is soft No significant tenderness - Extremities Exam Additional comments: Both LEs dressed Assessment and Plan - Assessment and Plan (Free Text) Assessment: Stage 111 kidney dis. Creat. has been stable Blood Pressures remain high. Suggest to resume Lisinopril. Leg ulcers C.diff colitis Plan: Pts creat has been stable. K+ is in normal range. Lisinopril may be resumed F/U labs in am.
--- NOTE | 2018-11-20 11:55 | CP.PCM.PN ---
Subjective - Date & Time of Evaluation Date of Evaluation: 11/20/18 Time of Evaluation: 11:58 - Subjective Subjective: C/O ABDOMINAL PAINS/HEADACHES/FEELING DIZZY AND HAVING A POOR APPETITE TODAY SERUM GLUCOSE IS LOW AND BP ELEVATED Objective - Vital Signs/Intake and Output Vital Signs (last 24 hours): Temp Pulse Resp BP Pulse Ox 98.1 F 83 20 156/103 H 97 11/20/18 07:56 11/20/18 08:47 11/20/18 07:56 11/20/18 08:47 11/20/18 07:56 - Medications Medications: Current Medications Acetaminophen (Tylenol 325mg Tab) 650 mg PO Q4 PRN PRN Reason: Fever >100.4 F Last Admin: 11/20/18 02:56 Dose: 650 mg Acetaminophen (Tylenol 650 Mg Supp) 650 mg [place] Q4 PRN PRN Reason: Headache Amlodipine Besylate (Norvasc) 10 mg PO DAILY [facility] Last Admin: 11/20/18 08:47 Dose: 10 mg Clonidine HCl (Catapres) 0.2 mg PO TID [facility] Last Admin: 11/20/18 08:43 Dose: 0.2 mg Dextrose (Dextrose 50% Inj) 0 ml IV STAT PRN; Protocol PRN Reason: Hypoglycemia Protocol Last Admin: 11/20/18 11:46 Dose: 50 ml Dextrose (Glutose 15) 0 gm PO ONCE PRN; Protocol PRN Reason: Hypoglycemia Protocol Glucagon (Glucagen Diagnostic Kit) 0 mg IM STAT PRN; Protocol PRN Reason: Hypoglycemia Protocol Heparin Sodium (Porcine) (Heparin) 5,000 units SC Q12 [facility]; Protocol Last Admin: 11/20/18 08:44 Dose: 5,000 units Vancomycin HCl 1 gm/ Sodium (Chloride) 250 mls @ 166.667 mls/hr IVPB Q24H [facility]; Protocol Last Admin: 11/19/18 15:51 Dose: 166.667 mls/hr Metronidazole (Flagyl 500mg/100ml Ns) 100 mls @ 100 mls/hr IVPB Q8@0600,1400,2200 [facility]; Protocol Last Admin: 11/20/18 05:28 Dose: 100 mls/hr Lactated Ringer's (Lactated Ringer's) 1,000 mls @ 60 mls/hr IV .[id number] [facility] Last Admin: 11/20/18 08:50 Dose: 60 mls/hr Insulin Detemir (Levemir) 30 units SC HS [facility] Last Admin: 11/19/18 21:59 Dose: 30 units Insulin Human Lispro (Humalog) 0 units SC ACHS [facility]; Protocol Last Admin: 11/20/18 08:46 Dose: Not Given Metoprolol Tartrate (Lopressor) 100 mg PO BID [facility] Last Admin: 11/20/18 08:47 Dose: 100 mg Ondansetron HCl (Zofran Inj) 4 mg IVP Q4 PRN PRN Reason: Nausea/Vomiting Last Admin: 11/20/18 08:49 Dose: 4 mg Pantoprazole Sodium (Protonix Ec Tab) 40 mg PO DAILY [facility] Last Admin: 11/20/18 08:48 Dose: 40 mg Saccharomyces Boulardii (Florastor) 250 mg PO BID [facility] Last Admin: 11/20/18 08:44 Dose: 250 mg Silver Sulfadiazine (Silvadene 1% 20 Gm) 0 ea TOP DAILY [facility] Last Admin: 11/19/18 09:45 Dose: 1 applic Vancomycin HCl (Vancocin (Oral/Rectal Use)) 250 mg PO Q6H [facility]; Protocol Last Admin: 11/19/18 21:57 Dose: 250 mg - Labs Labs: 11/17/18 05:55 11/17/18 05:55 PT 11.4 Seconds (9.8-13.1) 11/14/18 09:15 INR 1.0 11/14/18 09:15 APTT 30.1 Seconds (25.6-37.1) 11/14/18 09:15 - Constitutional Appears: In Acute Distress, Chronically Ill - Head Exam Head Exam: ATRAUMATIC, NORMAL INSPECTION, NORMOCEPHALIC - Eye Exam Eye Exam: EOMI, Normal appearance, PERRL Pupil Exam: NORMAL ACCOMODATION, PERRL - ENT Exam ENT Exam: Mucous Membranes Moist, Normal Exam - Neck Exam Neck Exam: Full ROM, Normal Inspection. absent: Lymphadenopathy - Respiratory Exam Respiratory Exam: Clear to Ausculation Bilateral, NORMAL BREATHING PATTERN - Cardiovascular Exam Cardiovascular Exam: REGULAR RHYTHM, +S1, +S2. absent: Murmur - GI/Abdominal Exam GI & Abdominal Exam: Soft, Normal Bowel Sounds. absent: Tenderness - Rectal Exam Rectal Exam: NORMAL INSPECTION - Extremities Exam Extremities Exam: Full ROM, Normal Capillary Refill, Tenderness. absent: Joint Swelling, Pedal Edema Additional comments: SURGICAL DRESSINGS IN PLACE OVER BOTH LEGS - Back Exam Back Exam: NORMAL INSPECTION - Neurological Exam Neurological Exam: Alert, Awake, CN II-XII Intact, Normal Gait, Oriented x3 - Psychiatric Exam Psychiatric exam: Normal Affect, Normal Mood - Skin Skin Exam: Dry, Intact, Normal Color, Warm Assessment and Plan - Assessment and Plan (Free Text) Assessment: UNCONTROLLED HTN HYPOGLYCEMIA S/P SKIN GRAFT OF R LEG GASTRITIS Plan: MYLANTA TID GIVE REGLAN IV D/C ZOFRAN PROTONIX BID HOLD INSULIN FOR NOW ADJUST ANTIHTN MEDS HOLD TRANSFER TO REGULAR FLOOR
[2018-11-20] MEDS: Alum-Mag Hydrox-Simethicone Susp (30 mL) PO SCH ×2 (12:58→16:44)
[2018-11-20] MEDS: Silver Sulfadiazine 1% Cream (20 gm) TOP SCH (12:58)
[2018-11-20] MEDS: Vancomycin 500 mg (Oral/Rectal USE) PO SCH ×4 (12:59→21:59)
--- NOTE | 2018-11-20 13:49 | CP.PCM.PN ---
Subjective - Date & Time of Evaluation Date of Evaluation: 11/20/18 Time of Evaluation: 07:00 - Subjective Subjective: weak abd pain afeb no diarrhea Objective - Vital Signs/Intake and Output Vital Signs (last 24 hours): Temp Pulse Resp BP Pulse Ox 97.5 F L 78 20 188/127 H 98 11/20/18 12:11 11/20/18 12:57 11/20/18 12:11 11/20/18 12:57 11/20/18 12:11 - Medications Medications: Current Medications Acetaminophen (Tylenol 325mg Tab) 650 mg PO Q4 PRN PRN Reason: Fever >100.4 F Last Admin: 11/20/18 02:56 Dose: 650 mg Acetaminophen (Tylenol 650 Mg Supp) 650 mg [place] Q4 PRN PRN Reason: Headache Al Hydrox/Mg Hydrox/Simethicone (Maalox Plus 30 Ml) 30 ml PO TID [facility] Last Admin: 11/20/18 12:58 Dose: 30 ml Amlodipine Besylate (Norvasc) 10 mg PO DAILY [facility] Last Admin: 11/20/18 08:47 Dose: 10 mg Clonidine HCl (Catapres) 0.3 mg PO TID [facility] Last Admin: 11/20/18 12:57 Dose: 0.3 mg Dextrose (Dextrose 50% Inj) 0 ml IV STAT PRN; Protocol PRN Reason: Hypoglycemia Protocol Last Admin: 11/20/18 11:46 Dose: 50 ml Dextrose (Glutose 15) 0 gm PO ONCE PRN; Protocol PRN Reason: Hypoglycemia Protocol Enalapril Maleate (Vasotec) 5 mg PO Q12 [facility] Glucagon (Glucagen Diagnostic Kit) 0 mg IM STAT PRN; Protocol PRN Reason: Hypoglycemia Protocol Heparin Sodium (Porcine) (Heparin) 5,000 units SC Q12 [facility]; Protocol Last Admin: 11/20/18 08:44 Dose: 5,000 units Vancomycin HCl 1 gm/ Sodium (Chloride) 250 mls @ 166.667 mls/hr IVPB Q24H [facility]; Protocol Last Admin: 11/20/18 13:00 Dose: 166.667 mls/hr Metronidazole (Flagyl 500mg/100ml Ns) 100 mls @ 100 mls/hr IVPB Q8@0600,1400,2200 [facility]; Protocol Last Admin: 11/20/18 05:28 Dose: 100 mls/hr Lactated Ringer's (Lactated Ringer's) 1,000 mls @ 60 mls/hr IV .[id number] [facility] Last Admin: 11/20/18 08:50 Dose: 60 mls/hr Insulin Detemir (Levemir) 30 units SC [facility] Last Admin: 11/19/18 21:59 Dose: 30 units Insulin Human Lispro (Humalog) 0 units SC [facility]; Protocol Last Admin: 11/20/18 12:35 Dose: Not Given Metoclopramide HCl (Reglan) 10 mg IVP Q6 PRN PRN Reason: Nausea/Vomiting Metoprolol Tartrate (Lopressor) 100 mg PO BID [facility] Last Admin: 11/20/18 08:47 Dose: 100 mg Pantoprazole Sodium (Protonix Ec Tab) 40 mg PO BID [facility] Saccharomyces Boulardii (Florastor) 250 mg PO BID [facility] Last Admin: 11/20/18 08:44 Dose: 250 mg Silver Sulfadiazine (Silvadene 1% 20 Gm) 0 ea TOP DAILY [facility] Last Admin: 11/20/18 12:58 Dose: 1 applic Vancomycin HCl (Vancocin (Oral/Rectal Use)) 250 mg PO Q6H [facility]; Protocol Last Admin: 11/20/18 12:59 Dose: 250 mg - Labs Labs: 11/17/18 05:55 11/17/18 05:55 PT 11.4 Seconds (9.8-13.1) 11/14/18 09:15 INR 1.0 11/14/18 09:15 APTT 30.1 Seconds (25.6-37.1) 11/14/18 09:15 - Constitutional Appears: Non-toxic, Chronically Ill - Head Exam Head Exam: NORMOCEPHALIC - Eye Exam Eye Exam: absent: Scleral icterus - ENT Exam ENT Exam: Mucous Membranes Dry - Neck Exam Neck Exam: absent: Lymphadenopathy - Respiratory Exam Respiratory Exam: Decreased Breath Sounds, Prolonged Expiratory Phase - Cardiovascular Exam Cardiovascular Exam: REGULAR RHYTHM - GI/Abdominal Exam GI & Abdominal Exam: Distended, Soft - Rectal Exam Rectal Exam: Deferred - Exam Exam: NORMAL INSPECTION - Extremities Exam Extremities Exam: Pedal Edema - Back Exam Back Exam: absent: CVA tenderness (L), CVA tenderness (R) - Neurological Exam Neurological Exam: Alert, Awake Assessment and Plan (1) Pyelonephritis Status: Suspected (2) Abdominal pain Status: Acute (3) Abnormal kidney function Status: Acute - Assessment and Plan (Free Text) Assessment: Cont IV and PO antibiotics wound care
[2018-11-20] MEDS: Pantoprazole 40 mg EC Tab PO SCH (16:44)
[2018-11-20] MEDS: Insulin Detemir 100 Units/ml Inj SC SCH (21:58)
[2018-11-21] MEDS: Lactated Ringer's 1,000 ML IV SCH ×2 (03:43→05:27)
[2018-11-21] MEDS: Vancomycin 500 mg (Oral/Rectal USE) PO SCH ×3 (04:14→21:54)
[2018-11-21] MEDS: metroNIDAZOLE 500mg/100ml NS 100 ML IVPB SCH ×3 (05:27→21:48)
[2018-11-21 05:44] LABS: CALCIUM 8.4 mg/dL (8.4-10.2)
[2018-11-21] MEDS: Insulin Lispro (humaLOG) 100 Units/ml Inj SC SCH ×3 (08:08→17:01)
--- NOTE | 2018-11-21 08:26 | CP.PCM.PN ---
Subjective - Date & Time of Evaluation Date of Evaluation: 11/21/18 Time of Evaluation: 08:27 - Subjective Subjective: FEELS BETTER TODAY NAUSEA IMPROVED VSS Objective - Vital Signs/Intake and Output Vital Signs (last 24 hours): Temp Pulse Resp BP Pulse Ox 97.9 F 77 20 169/99 H 99 11/21/18 08:09 11/21/18 08:09 11/21/18 08:09 11/21/18 08:09 11/21/18 08:09 - Medications Medications: Current Medications Acetaminophen (Tylenol 325mg Tab) 650 mg PO Q4 PRN PRN Reason: Fever >100.4 F Last Admin: 11/20/18 02:56 Dose: 650 mg Acetaminophen (Tylenol 325mg Tab) 650 mg PO Q4 PRN PRN Reason: Headaches Last Admin: 11/20/18 15:00 Dose: 650 mg Al Hydrox/Mg Hydrox/Simethicone (Maalox Plus 30 Ml) 30 ml PO TID [facility] Last Admin: 11/20/18 16:44 Dose: 30 ml Amlodipine Besylate (Norvasc) 10 mg PO DAILY [facility] Last Admin: 11/20/18 08:47 Dose: 10 mg Clonidine HCl (Catapres) 0.3 mg PO TID [facility] Last Admin: 11/20/18 16:35 Dose: 0.3 mg Dextrose (Dextrose 50% Inj) 0 ml IV STAT PRN; Protocol PRN Reason: Hypoglycemia Protocol Last Admin: 11/20/18 11:46 Dose: 50 ml Dextrose (Glutose 15) 0 gm PO ONCE PRN; Protocol PRN Reason: Hypoglycemia Protocol Enalapril Maleate (Vasotec) 5 mg PO Q12 [facility] Last Admin: 11/20/18 21:15 Dose: 5 mg Glucagon (Glucagen Diagnostic Kit) 0 mg IM STAT PRN; Protocol PRN Reason: Hypoglycemia Protocol Heparin Sodium (Porcine) (Heparin) 5,000 units SC Q12 [facility]; Protocol Last Admin: 11/20/18 21:12 Dose: 5,000 units Vancomycin HCl 1 gm/ Sodium (Chloride) 250 mls @ 166.667 mls/hr IVPB Q24H [facility]; Protocol Last Admin: 11/20/18 13:00 Dose: 166.667 mls/hr Metronidazole (Flagyl 500mg/100ml Ns) 100 mls @ 100 mls/hr IVPB Q8@0600,1400,2200 [facility]; Protocol Last Admin: 11/21/18 05:27 Dose: 100 mls/hr Lactated Ringer's (Lactated Ringer's) 1,000 mls @ 60 mls/hr IV .[id number] [facility] Last Admin: 11/21/18 05:27 Dose: 60 mls/hr Insulin Detemir (Levemir) 30 units SC HS [facility] Last Admin: 11/20/18 21:58 Dose: Not Given Insulin Human Lispro (Humalog) 0 units SC ACHS [facility]; Protocol Last Admin: 11/21/18 08:08 Dose: 5 units Metoclopramide HCl (Reglan) 10 mg IVP Q6 PRN PRN Reason: Nausea/Vomiting Last Admin: 11/21/18 01:27 Dose: 10 mg Metoprolol Tartrate (Lopressor) 100 mg PO BID [facility] Last Admin: 11/20/18 16:40 Dose: 100 mg Pantoprazole Sodium (Protonix Ec Tab) 40 mg PO BID [facility] Last Admin: 11/20/18 16:44 Dose: 40 mg Saccharomyces Boulardii (Florastor) 250 mg PO BID [facility] Last Admin: 11/20/18 16:36 Dose: 250 mg Silver Sulfadiazine (Silvadene 1% 20 Gm) 0 ea TOP DAILY [facility] Last Admin: 11/20/18 12:58 Dose: 1 applic Vancomycin HCl (Vancocin (Oral/Rectal Use)) 250 mg PO Q6H [facility]; Protocol Last Admin: 11/21/18 04:14 Dose: 250 mg - Labs Labs: 11/17/18 05:55 11/21/18 05:10 PT 11.4 Seconds (9.8-13.1) 11/14/18 09:15 INR 1.0 11/14/18 09:15 APTT 30.1 Seconds (25.6-37.1) 11/14/18 09:15 - Constitutional Appears: No Acute Distress, Chronically Ill - Head Exam Head Exam: ATRAUMATIC, NORMAL INSPECTION, NORMOCEPHALIC - Eye Exam Eye Exam: EOMI, Normal appearance, PERRL Pupil Exam: NORMAL ACCOMODATION, PERRL - ENT Exam ENT Exam: Mucous Membranes Moist, Normal Exam - Neck Exam Neck Exam: Full ROM, Normal Inspection. absent: Lymphadenopathy - Respiratory Exam Respiratory Exam: Clear to Ausculation Bilateral, NORMAL BREATHING PATTERN - Cardiovascular Exam Cardiovascular Exam: REGULAR RHYTHM, +S1, +S2. absent: Murmur - GI/Abdominal Exam GI & Abdominal Exam: Soft, Normal Bowel Sounds. absent: Tenderness - Rectal Exam Rectal Exam: NORMAL INSPECTION - Extremities Exam Extremities Exam: Full ROM, Tenderness. 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
--- NOTE | 2018-11-21 09:01 | CP.PCM.PN ---
Subjective - Date & Time of Evaluation Date of Evaluation: 11/21/18 Time of Evaluation: 08:59 - Subjective Subjective: Podiatry progress note - Dr. Rosa 28M seen and evaluated at bedside for B/L lower extremity ulcerations with L charcot deformity, POD#3 R leg graft deployment. Resting comfortably and denies any acute events overnight. Dressing d/c/i. Denies n/v/f/c/sob today and has no other acute complaints. Objective - Vital Signs/Intake and Output Vital Signs (last 24 hours): Temp Pulse Resp BP Pulse Ox 97.9 F 77 20 169/99 H 99 11/21/18 08:09 11/21/18 08:09 11/21/18 08:09 11/21/18 08:09 11/21/18 08:09 - Medications Medications: Current Medications Acetaminophen (Tylenol 325mg Tab) 650 mg PO Q4 PRN PRN Reason: Fever >100.4 F Last Admin: 11/20/18 02:56 Dose: 650 mg Acetaminophen (Tylenol 325mg Tab) 650 mg PO Q4 PRN PRN Reason: Headaches Last Admin: 11/20/18 15:00 Dose: 650 mg Al Hydrox/Mg Hydrox/Simethicone (Maalox Plus 30 Ml) 30 ml PO TID [facility] Last Admin: 11/20/18 16:44 Dose: 30 ml Amlodipine Besylate (Norvasc) 10 mg PO DAILY [facility] Last Admin: 11/20/18 08:47 Dose: 10 mg Clonidine HCl (Catapres) 0.3 mg PO TID [facility] Last Admin: 11/20/18 16:35 Dose: 0.3 mg Dextrose (Dextrose 50% Inj) 0 ml IV STAT PRN; Protocol PRN Reason: Hypoglycemia Protocol Last Admin: 11/20/18 11:46 Dose: 50 ml Dextrose (Glutose 15) 0 gm PO ONCE PRN; Protocol PRN Reason: Hypoglycemia Protocol Enalapril Maleate (Vasotec) 5 mg PO Q12 [facility] Last Admin: 11/20/18 21:15 Dose: 5 mg Glucagon (Glucagen Diagnostic Kit) 0 mg IM STAT PRN; Protocol PRN Reason: Hypoglycemia Protocol Heparin Sodium (Porcine) (Heparin) 5,000 units SC Q12 [facility]; Protocol Last Admin: 11/20/18 21:12 Dose: 5,000 units Vancomycin HCl 1 gm/ Sodium (Chloride) 250 mls @ 166.667 mls/hr IVPB Q24H [facility]; Protocol Last Admin: 11/20/18 13:00 Dose: 166.667 mls/hr Metronidazole (Flagyl 500mg/100ml Ns) 100 mls @ 100 mls/hr IVPB Q8@0600,1 400,2200 [facility]; Protocol Last Admin: 11/21/18 05:27 Dose: 100 mls/hr Lactated Ringer's (Lactated Ringer's) 1,000 mls @ 60 mls/hr IV .[id number] [facility] Last Admin: 11/21/18 05:27 Dose: 60 mls/hr Insulin Detemir (Levemir) 30 units SC HS [facility] Last Admin: 11/20/18 21:58 Dose: Not Given Insulin Human Lispro (Humalog) 0 units SC ACHS [facility]; Protocol Last Admin: 11/21/18 08:08 Dose: 5 units Metoclopramide HCl (Reglan) 10 mg IVP Q6 PRN PRN Reason: Nausea/Vomiting Last Admin: 11/21/18 01:27 Dose: 10 mg Metoprolol Tartrate (Lopressor) 100 mg PO BID [facility] Last Admin: 11/20/18 16:40 Dose: 100 mg Pantoprazole Sodium (Protonix Ec Tab) 40 mg PO BID [facility] Last Admin: 11/20/18 16:44 Dose: 40 mg Saccharomyces Boulardii (Florastor) 250 mg PO BID [facility] Last Admin: 11/20/18 16:36 Dose: 250 mg Silver Sulfadiazine (Silvadene 1% 20 Gm) 0 ea TOP DAILY [facility] Last Admin: 11/20/18 12:58 Dose: 1 applic Vancomycin HCl (Vancocin (Oral/Rectal Use)) 250 mg PO Q6H [facility]; Protocol Last Admin: 11/21/18 04:14 Dose: 250 mg - Labs Labs: 11/17/18 05:55 11/21/18 05:10 PT 11.4 Seconds (9.8-13.1) 11/14/18 09:15 INR 1.0 11/14/18 09:15 APTT 30.1 Seconds (25.6-37.1) 11/14/18 09:15 - Constitutional Appears: Non-toxic - Head Exam Head Exam: ATRAUMATIC - Extremities Exam Additional comments: RLE dressings left clean/dry/intact CFT < 3 seconds Patient able to wiggle toes LLE: VASC: DP and PT 2/4, temperature gradient warm to warm to bilateral lower ex tremity, CFT < 3 seconds, edema noted to the anterior lateral aspect of the left lower extremity ORTHO: MMT is 5/5 in all four compartments, collapsed arch on left secondary to charcot deformity NEURO: gross and protective sensation intact DERM: LLE ulceration appreciated to the 5th metatarsal , approximately 2.0x1.5x.5cm, and lateral malleolus, approximately 2.5x1x.2cm, with mixed fibrous/granular base, mild serous/sanginous drainage appreciated - Neurological Exam Neurological Exam: Alert, Awake, Oriented x3 - Psychiatric Exam Psychiatric exam: Normal Affect Assessment and Plan - Assessment and Plan (Free Text) Assessment: 28M with B/L lower extremity ulcerations with L charcot deformity, POD#3 right leg graft deployment Plan: Patient seen and evaluated Discussed with attending Dr. Rosa Blood culture; Streptococcus Species L ankle and foot xrays ordered; Findings consistent with Charcot joint. Destructive changes of midfoot bones as well as the distal margins of the tibia and fibular. Note that superimposed infection-chronic OM not excluded Local wound care to L lower extremity; silvadene, xeroform, DSD ; right dressing to be kept dry, clean and intact Surgical dressing left clean, dry, intact. Vasc consulted; reccs appreciated; Due to patient's poor vasculature from diabetes, will evaluate with arterial duplex since patient is not a candidate for CTA of bilateral lower extremities due to renal function. ID consulted; reccs appreciated Patient stable for d/c from podiatry point of view, patient will continue to follow up with Dr. Rosa. Keep dressing d/c/i
--- NOTE | 2018-11-21 11:44 | CP.PCM.PN ---
Subjective - Date & Time of Evaluation Date of Evaluation: 11/21/18 Time of Evaluation: 07:00 - Subjective Subjective: discussed on rounds s/p skin graft slow progress less diarrhea Objective - Vital Signs/Intake and Output Vital Signs (last 24 hours): Temp Pulse Resp BP Pulse Ox 97.9 F 77 20 169/99 H 99 11/21/18 08:09 11/21/18 08:09 11/21/18 08:09 11/21/18 08:09 11/21/18 08:09 - Medications Medications: Current Medications Acetaminophen (Tylenol 325mg Tab) 650 mg PO Q4 PRN PRN Reason: Fever >100.4 F Last Admin: 11/20/18 02:56 Dose: 650 mg Acetaminophen (Tylenol 325mg Tab) 650 mg PO Q4 PRN PRN Reason: Headaches Last Admin: 11/20/18 15:00 Dose: 650 mg Al Hydrox/Mg Hydrox/Simethicone (Maalox Plus 30 Ml) 30 ml PO TID [facility] Last Admin: 11/20/18 16:44 Dose: 30 ml Amlodipine Besylate (Norvasc) 10 mg PO DAILY [facility] Last Admin: 11/20/18 08:47 Dose: 10 mg Clonidine HCl (Catapres) 0.3 mg PO TID [facility] Last Admin: 11/20/18 16:35 Dose: 0.3 mg Dextrose (Dextrose 50% Inj) 0 ml IV STAT PRN; Protocol PRN Reason: Hypoglycemia Protocol Last Admin: 11/20/18 11:46 Dose: 50 ml Dextrose (Glutose 15) 0 gm PO ONCE PRN; Protocol PRN Reason: Hypoglycemia Protocol Enalapril Maleate (Vasotec) 5 mg PO Q12 [facility] Last Admin: 11/20/18 21:15 Dose: 5 mg Glucagon (Glucagen Diagnostic Kit) 0 mg IM STAT [facility]N; Protocol PRN Reason: Hypoglycemia Protocol Heparin Sodium (Porcine) (Heparin) 5,000 units SC Q12 [facility]; Protocol Last Admin: 11/20/18 21:12 Dose: 5,000 units Vancomycin HCl 1 gm/ Sodium (Chloride) 250 mls @ 166.667 mls/hr IVPB Q24H [facility]; Protocol Last Admin: 11/20/18 13:00 Dose: 166.667 mls/hr Metronidazole (Flagyl 500mg/100ml Ns) 100 mls @ 100 mls/hr IVPB Q8@0600,1400,2200 [facility]; Protocol Last Admin: 11/21/18 05:27 Dose: 100 mls/hr Lactated Ringer's (Lactated Ringer's) 1,000 mls @ 60 mls/hr IV .[id number] [facility] Last Admin: 11/21/18 05:27 Dose: 60 mls/hr Insulin Detemir (Levemir) 30 units SC HS [facility] Last Admin: 11/20/18 21:58 Dose: Not Given Insulin Human Lispro (Humalog) 0 units SC ACHS [facility]; Protocol Last Admin: 11/21/18 08:08 Dose: 5 units Metoclopramide HCl (Reglan) 10 mg IVP Q6 PRN PRN Reason: Nausea/Vomiting Last Admin: 11/21/18 01:27 Dose: 10 mg Metoprolol Tartrate (Lopressor) 100 mg PO BID [facility] Last Admin: 11/20/18 16:40 Dose: 100 mg Pantoprazole Sodium (Protonix Ec Tab) 40 mg PO BID [facility] Last Admin: 11/20/18 16:44 Dose: 40 mg Saccharomyces Boulardii (Florastor) 250 mg PO BID [facility] Last Admin: 11/20/18 16:36 Dose: 250 mg Silver Sulfadiazine (Silvadene 1% 20 Gm) 0 ea TOP DAILY [facility] Last Admin: 11/20/18 12:58 Dose: 1 applic Vancomycin HCl (Vancocin (Oral/Rectal Use)) 250 mg PO Q6H [facility]; Protocol Last Admin: 11/21/18 04:14 Dose: 250 mg - Labs Labs: 11/17/18 05:55 11/21/18 05:10 PT 11.4 Seconds (9.8-13.1) 11/14/18 09:15 INR 1.0 11/14/18 09:15 APTT 30.1 Seconds (25.6-37.1) 11/14/18 09:15 - Constitutional Appears: Non-toxic, Chronically Ill - Head Exam Head Exam: NORMOCEPHALIC - Eye Exam Eye Exam: absent: Scleral icterus - ENT Exam ENT Exam: Mucous Membranes Dry - Neck Exam Neck Exam: absent: Lymphadenopathy - Respiratory Exam Respiratory Exam: Decreased Breath Sounds - Cardiovascular Exam Cardiovascular Exam: REGULAR RHYTHM - GI/Abdominal Exam GI & Abdominal Exam: Distended, Soft - Rectal Exam Rectal Exam: Deferred - Exam Exam: NORMAL INSPECTION - Extremities Exam Extremities Exam: Pedal Edema. absent: Normal Capillary Refill, Normal Inspection, Tenderness - Back Exam Back Exam: absent: CVA tenderness (L), CVA tenderness (R) Assessment and Plan (1) Pyelonephritis Status: Suspected (2) Abdominal pain Status: Acute (3) Abnormal kidney function Status: Acute - Assessment and Plan (Free Text) Assessment: will cont IV antibiotics 14 more days for MARISEL
--- NOTE | 2018-11-21 12:11 | CP.PCM.PN ---
Subjective - Date & Time of Evaluation Date of Evaluation: 11/21/18 Time of Evaluation: 12:09 - Subjective Subjective: Jus Wagoner, PGY-1, Cardiology Progress Note for Dr. Read Patient seen and evaluated at bedside. Patient had no acute overnight events. Patient reports improved drainage and tenderness of lower extremities today. Objective - Vital Signs/Intake and Output Vital Signs (last 24 hours): Temp Pulse Resp BP Pulse Ox 97.9 F 77 20 169/99 H 99 11/21/18 08:09 11/21/18 08:09 11/21/18 08:09 11/21/18 08:09 11/21/18 08:09 - Medications Medications: Current Medications Acetaminophen (Tylenol 325mg Tab) 650 mg PO Q4 PRN PRN Reason: Fever >100.4 F Last Admin: 11/20/18 02:56 Dose: 650 mg Acetaminophen (Tylenol 325mg Tab) 650 mg PO Q4 PRN PRN Reason: Headaches Last Admin: 11/20/18 15:00 Dose: 650 mg Al Hydrox/Mg Hydrox/Simethicone (Maalox Plus 30 Ml) 30 ml PO TID [facility] Last Admin: 11/20/18 16:44 Dose: 30 ml Amlodipine Besylate (Norvasc) 10 mg PO DAILY [facility] Last Admin: 11/20/18 08:47 Dose: 10 mg Clonidine HCl (Catapres) 0.3 mg PO TID [facility] Last Admin: 11/20/18 16:35 Dose: 0.3 mg Dextrose (Dextrose 50% Inj) 0 ml IV STAT PRN; Protocol PRN Reason: Hypoglycemia Protocol Last Admin: 11/20/18 11:46 Dose: 50 ml Dextrose (Glutose 15) 0 gm PO ONCE PRN; Protocol PRN Reason: Hypoglycemia Protocol Enalapril Maleate (Vasotec) 5 mg PO Q12 [facility] Last Admin: 11/20/18 21:15 Dose: 5 mg Glucagon (Glucagen Diagnostic Kit) 0 mg IM STAT PRN; Protocol PRN Reason: Hypoglycemia Protocol Heparin Sodium (Porcine) (Heparin) 5,000 units SC Q12 [facility]; Protocol Last Admin: 11/20/18 21:12 Dose: 5,000 units Vancomycin HCl 1 gm/ Sodium (Chloride) 250 mls @ 166.667 mls/hr IVPB Q24H [facility]; Protocol Last Admin: 11/20/18 13:00 Dose: 166.667 mls/hr Metronidazole (Flagyl 500mg/100ml Ns) 100 mls @ 100 mls/hr IVPB Q8@0600,1400,2200 [facility]; Protocol Last Admin: 11/21/18 05:27 Dose: 100 mls/hr Lactated Ringer's (Lactated Ringer's) 1,000 mls @ 60 mls/hr IV .[id number] [facility] Last Admin: 11/21/18 05:27 Dose: 60 mls/hr Insulin Detemir (Levemir) 30 units SC HS [facility] Last Admin: 11/20/18 21:58 Dose: Not Given Insulin Human Lispro (Humalog) 0 units SC ACHS [facility]; Protocol Last Admin: 11/21/18 08:08 Dose: 5 units Metoclopramide HCl (Reglan) 10 mg IVP Q6 PRN PRN Reason: Nausea/Vomiting Last Admin: 11/21/18 01:27 Dose: 10 mg Metoprolol Tartrate (Lopressor) 100 mg PO BID [facility] Last Admin: 11/20/18 16:40 Dose: 100 mg Pantoprazole Sodium (Protonix Ec Tab) 40 mg PO BID [facility] Last Admin: 11/20/18 16:44 Dose: 40 mg Saccharomyces Boulardii (Florastor) 250 mg PO BID [facility] Last Admin: 11/20/18 16:36 Dose: 250 mg Silver Sulfadiazine (Silvadene 1% 20 Gm) 0 ea TOP DAILY [facility] Last Admin: 11/20/18 12:58 Dose: 1 applic Vancomycin HCl (Vancocin (Oral/Rectal Use)) 250 mg PO Q6H [facility]; Protocol Last Admin: 11/21/18 04:14 Dose: 250 mg - Labs Labs: 11/17/18 05:55 11/21/18 05:10 PT 11.4 Seconds (9.8-13.1) 11/14/18 09:15 INR 1.0 11/14/18 09:15 APTT 30.1 Seconds (25.6-37.1) 11/14/18 09:15 - Constitutional Appears: Well, Non-toxic, No Acute Distress - Head Exam Head Exam: ATRAUMATIC, NORMAL INSPECTION, NORMOCEPHALIC - Eye Exam Eye Exam: EOMI, Normal appearance, PERRL - ENT Exam ENT Exam: Mucous Membranes Moist - Respiratory Exam Respiratory Exam: Clear to Auscultation Bilateral, NORMAL BREATHING PATTERN - Cardiovascular Exam Cardiovascular Exam: REGULAR RHYTHM, RRR, +S1, +S2 - GI/Abdominal Exam GI & Abdominal Exam: Normal Bowel Sounds, Soft. absent: Tenderness - Extremities Exam Extremities exam: Positive for: full ROM - Neurological Exam Neurological exam: Alert, CN II-XII Intact, Oriented x3 - Skin Skin Exam: Dry, Intact Additional comments: bilateral lower extremity wounds Assessment and Plan (1) Diabetic foot ulcer Assessment & Plan: Patient has severe beebe on bilateral lower extremities. Arterial duplex: right lower extremity: right common femoral artery shows max flow of 61.9 cm/s. Right SFA shows max flow of 89.5 cm/s. Right popliteal artery shows max flow of 48.2 cm/s. Right posterior tibial artery shows max flow of 63.3 cm/s. Right DP shows max flow of 74.9 cm/s. left lower extremity: left common femoral shows max flow of 108.2 cm/s. left SFA shows max flow of 91.7 cm/s. left popliteal artery shows max flow of 41.2 cm/s. left posterior tibial artery shows max flow of 69.0 cm/s. Due to decrease of flow from right SFA to right popliteal and left SFA to left popliteal, would consider peripheral angiogram vs. waiting to see if wound heals for 6 weeks. As per patient, he would like to wait for 6 weeks to evaluate for healing. If wound does not heal appropriately, he would be agreeable for peripheral angiogram at that time. Status: Chronic (2) CKD (chronic kidney disease) Assessment & Plan: Last BUN/Cr was 15/1.9 Continue to monitor Avoid CESAR/ARB, nephrotoxins Status: Chronic (3) History of hypertension Assessment & Plan: Systolic Blood pressure in 150s to 180s Continue with norvasc, clonidine, lisinopril, and lopressor. Status: Chronic (4) Uncontrolled type 1 diabetes mellitus Assessment & Plan: HgbA1c: 7.8 Continue with levemir and lispro. Consider increasing levemir Status: Chronic (5) Bacteremia Assessment & Plan: Strep bacteremia likely 2/2 to lower extremity wounds Continue with antibiotics Status: Acute
[2018-11-21] MEDS: Pantoprazole 40 mg EC Tab PO SCH ×2 (12:19→17:02)
[2018-11-21] MEDS: Saccharomyces Boulardi 250 mg Cap PO SCH ×2 (12:19→17:03)
[2018-11-21] MEDS: Silver Sulfadiazine 1% Cream (20 gm) TOP SCH (12:20)
[2018-11-21] MEDS: Alum-Mag Hydrox-Simethicone Susp (30 mL) PO SCH ×3 (12:20→17:02)
[2018-11-21] MEDS ORDERED: Lidocaine Hydrochloride 1% 10 ML ONE (12:44)
--- NOTE | 2018-11-21 13:33 | PCM.SURG1 ---
Surgeon's Initial Post Op Note - Surgeon's Notes Surgeon: Eric Martinez MD Product Safety Technical Assistant: NONE Type of Anesthesia: Local Pre-Operative Diagnosis: poor venous access Operative Findings: US showed a patent right basilic vein Post-Operative Diagnosis: poor venous access Operation Performed: Single lumen picc placement right arm, 35 CM. Specimen/Specimens Removed: nONE Estimated Blood Loss: EBL {In ML}: 2 Blood Products Given: N/A Drains Used: No Drains Post-Op Condition: Fair Date of Surgery/Procedure: 11/21/18 Time of Surgery/Procedure: 13:20
--- NOTE | 2018-11-21 13:42 | VASCULAR ---
PROCEDURE: Date of procedure: 11/21/2018 Procedure: 1. Placement of a right arm PICC with ultrasound and fluoroscopic guidance, CPT 09512 2. PICC tip confirmation with spot radiograph and is in the superior vena cava Medications: 2cc 1 percent lidocaine Total Fluoro time: 2.2 Seconds Radiation: 0.24 MGy EBL: 2 cc HISTORY: Infection requiring long-term IV antibiotics TECHNIQUE: Following informed consent and procedure time-out, the patient was placed supine on the interventional table and the right arm prepped and draped in the usual sterile fashion. Ultrasound showed a patent and compressible right basilic vein. After the skin was anesthetized with lidocaine, the basilic vein was accessed with micro micropuncture technique using ultrasound guidance. A guidewire was then advanced under fluoroscopic guidance into the superior vena cava. An image documenting ultrasound guidance for vascular access was permanently saved. The length of the single-lumen 4 Maltese PICC was trimmed to 35 centimeters and advanced through a peel-away sheath. The PICC was position with tip of PICC confirm a spot radiograph the superior vena cava. The PICC was secured to the patient's skin. The PICC was flushed. A biopatch and sterile dressing was applied. IMPRESSION: Placement of a single-lumen 4 Maltese PICC trimmed to 35 centimeters via right basilic vein. The tip of the PICC is confirmed with spot radiograph and is in the superior vena cava.
--- NOTE | 2018-11-21 14:50 | CP.PCM.PN ---
Subjective - Date & Time of Evaluation Date of Evaluation: 11/21/18 Time of Evaluation: 02:00 - Subjective Subjective: Feels better today. No abdominal pain. Doing PT Objective - Vital Signs/Intake and Output Vital Signs (last 24 hours): Temp Pulse Resp BP Pulse Ox 97.8 F 77 18 172/90 H 98 11/21/18 13:13 11/21/18 12:51 11/21/18 13:13 11/21/18 13:36 11/21/18 12:51 - Medications Medications: Current Medications Acetaminophen (Tylenol 325mg Tab) 650 mg PO Q4 PRN PRN Reason: Fever >100.4 F Last Admin: 11/20/18 02:56 Dose: 650 mg Acetaminophen (Tylenol 325mg Tab) 650 mg PO Q4 PRN PRN Reason: Headaches Last Admin: 11/20/18 15:00 Dose: 650 mg Al Hydrox/Mg Hydrox/Simethicone (Maalox Plus 30 Ml) 30 ml PO TID [facility] Last Admin: 11/21/18 12:20 Dose: 30 ml Amlodipine Besylate (Norvasc) 10 mg PO DAILY [facility] Last Admin: 11/21/18 12:19 Dose: 10 mg Clonidine HCl (Catapres) 0.3 mg PO TID [facility] Last Admin: 11/20/18 16:35 Dose: 0.3 mg Dextrose (Dextrose 50% Inj) 0 ml IV STAT PRN; Protocol PRN Reason: Hypoglycemia Protocol Last Admin: 11/20/18 11:46 Dose: 50 ml Dextrose (Glutose 15) 0 gm PO ONCE PRN; Protocol PRN Reason: Hypoglycemia Protocol Enalapril Maleate (Vasotec) 5 mg PO Q12 [facility] Last Admin: 11/21/18 12:23 Dose: 5 mg Glucagon (Glucagen Diagnostic Kit) 0 mg IM STAT PRN; Protocol PRN Reason: Hypoglycemia Protocol Heparin Sodium (Porcine) (Heparin) 5,000 units SC Q12 [facility]; Protocol Last Admin: 11/21/18 12:24 Dose: 5,000 units Vancomycin HCl 1 gm/ Sodium (Chloride) 250 mls @ 166.667 mls/hr IVPB Q24H [facility]; Protocol Last Admin: 11/20/18 13:00 Dose: 166.667 mls/hr Metronidazole (Flagyl 500mg/100ml Ns) 100 mls @ 100 mls/hr IVPB Q8@0600,1400,2200 [facility]; Protocol Last Admin: 11/21/18 05:27 Dose: 100 mls/hr Lactated Ringer's (Lactated Ringer's) 1,000 mls @ 60 mls/hr IV .[id number] [facility] Last Admin: 11/21/18 05:27 Dose: 60 mls/hr Insulin Detemir (Levemir) 30 units SC HS [facility] Last Admin: 11/20/18 21:58 Dose: Not Given Insulin Human Lispro (Humalog) 0 units SC ACHS [facility]; Protocol Last Admin: 11/21/18 12:24 Dose: 6 units Metoclopramide HCl (Reglan) 10 mg IVP Q6 PRN PRN Reason: Nausea/Vomiting Last Admin: 11/21/18 01:27 Dose: 10 mg Metoprolol Tartrate (Lopressor) 100 mg PO BID [facility] Last Admin: 11/21/18 12:19 Dose: 100 mg Pantoprazole Sodium (Protonix Ec Tab) 40 mg PO BID [facility] Last Admin: 11/21/18 12:19 Dose: 40 mg Saccharomyces Boulardii (Florastor) 250 mg PO BID [facility] Last Admin: 11/21/18 12:19 Dose: 250 mg Silver Sulfadiazine (Silvadene 1% 20 Gm) 0 ea TOP DAILY [facility] Last Admin: 11/21/18 12:20 Dose: 1 applic Vancomycin HCl (Vancocin (Oral/Rectal Use)) 250 mg PO Q6H [facility]; Protocol Last Admin: 11/21/18 12:21 Dose: 250 mg - Labs Labs: 11/17/18 05:55 11/21/18 05:10 PT 11.4 Seconds (9.8-13.1) 11/14/18 09:15 INR 1.0 11/14/18 09:15 APTT 30.1 Seconds (25.6-37.1) 11/14/18 09:15 - Constitutional Appears: No Acute Distress - Eye Exam Additional comments: conjunctiva pale - ENT Exam ENT Exam: Mucous Membranes Moist - Neck Exam Neck Exam: Normal Inspection - Respiratory Exam Respiratory Exam: NORMAL BREATHING PATTERN Additional comments: Lungs clear - Cardiovascular Exam Cardiovascular Exam: REGULAR RHYTHM - GI/Abdominal Exam Additional comments: Abdomen soft & nontender - Extremities Exam Additional comments: Both legs dressed. Assessment and Plan - Assessment and Plan (Free Text) Assessment: Stage 111 kidney dis./Diabetic nephropathy. Renal function is stable HTN BP is still high but improving.improving B/L leg ulcers C.diff colitis Plan: Continue to monitor renal function Supplent K+ as needed
[2018-11-21] MEDS: Insulin Detemir 100 Units/ml Inj SC SCH (22:01)
[2018-11-22] MEDS: Insulin Lispro (humaLOG) 100 Units/ml Inj SC SCH ×5 (02:40→18:08)
[2018-11-22] MEDS: Vancomycin 500 mg (Oral/Rectal USE) PO SCH ×3 (05:16→18:10)
[2018-11-22] MEDS: metroNIDAZOLE 500mg/100ml NS 100 ML IVPB SCH ×2 (09:14→15:36)
[2018-11-22] MEDS: Saccharomyces Boulardi 250 mg Cap PO SCH ×2 (09:16→18:06)
[2018-11-22] MEDS: Alum-Mag Hydrox-Simethicone Susp (30 mL) PO SCH ×3 (09:19→18:08)
[2018-11-22] MEDS: Silver Sulfadiazine 1% Cream (20 gm) TOP SCH (09:20)
[2018-11-22] MEDS: Pantoprazole 40 mg EC Tab PO SCH ×2 (09:20→18:09)
--- NOTE | 2018-11-22 09:45 | CP.PCM.PN ---
Subjective - Date & Time of Evaluation Date of Evaluation: 11/22/18 Time of Evaluation: 09:47 - Subjective Subjective: FEELS BETTER PAIN LESS VSS Objective - Vital Signs/Intake and Output Vital Signs (last 24 hours): Temp Pulse Resp BP Pulse Ox 98.2 F 112 H 18 151/93 H 100 11/22/18 08:00 11/22/18 09:19 11/22/18 08:00 11/22/18 09:19 11/22/18 08:00 - Medications Medications: Current Medications Acetaminophen (Tylenol 325mg Tab) 650 mg PO Q4 PRN PRN Reason: Fever >100.4 F Last Admin: 11/20/18 02:56 Dose: 650 mg Acetaminophen (Tylenol 325mg Tab) 650 mg PO Q4 PRN PRN Reason: Headaches Last Admin: 11/20/18 15:00 Dose: 650 mg Al Hydrox/Mg Hydrox/Simethicone (Maalox Plus 30 Ml) 30 ml PO TID [facility] Last Admin: 11/22/18 09:19 Dose: 30 ml Amlodipine Besylate (Norvasc) 10 mg PO DAILY [facility] Last Admin: 11/22/18 09:19 Dose: 10 mg Clonidine HCl (Catapres) 0.3 mg PO TID [facility] Last Admin: 11/22/18 09:15 Dose: 0.3 mg Dextrose (Dextrose 50% Inj) 0 ml IV STAT PRN; Protocol PRN Reason: Hypoglycemia Protocol Last Admin: 11/20/18 11:46 Dose: 50 ml Dextrose (Glutose 15) 0 gm PO ONCE PRN; Protocol PRN Reason: Hypoglycemia Protocol Enalapril Maleate (Vasotec) 5 mg PO Q12 [facility] Last Admin: 11/22/18 09:21 Dose: 5 mg Glucagon (Glucagen Diagnostic Kit) 0 mg IM STAT PRN; Protocol PRN Reason: Hypoglycemia Protocol Heparin Sodium (Porcine) (Heparin) 5,000 units SC Q12 [facility]; Protocol Last Admin: 11/22/18 09:16 Dose: 5,000 units Vancomycin HCl 1 gm/ Sodium (Chloride) 250 mls @ 166.667 mls/hr IVPB Q24H [facility]; Protocol Last Admin: 11/21/18 17:02 Dose: 166.667 mls/hr Metronidazole (Flagyl 500mg/100ml Ns) 100 mls @ 100 mls/hr IVPB Q8@0600,1400,2200 [facility]; Protocol Last Admin: 11/22/18 09:14 Dose: 100 mls/hr Insulin Detemir (Levemir) 30 units SC HS [facility] Last Admin: 11/21/18 22:01 Dose: 30 units Insulin Human Lispro (Humalog) 0 units SC ACHS [facility]; Protocol Last Admin: 11/22/18 09:18 Dose: 2 units Metoclopramide HCl (Reglan) 10 mg IVP Q6 PRN PRN Reason: Nausea/Vomiting Last Admin: 11/21/18 21:50 Dose: 10 mg Metoprolol Tartrate (Lopressor) 100 mg PO BID [facility] Last Admin: 11/22/18 09:19 Dose: 100 mg Pantoprazole Sodium (Protonix Ec Tab) 40 mg PO BID [facility] Last Admin: 11/22/18 09:20 Dose: 40 mg Saccharomyces Boulardii (Florastor) 250 mg PO BID [facility] Last Admin: 11/22/18 09:16 Dose: 250 mg Silver Sulfadiazine (Silvadene 1% 20 Gm) 0 ea TOP DAILY [facility] Last Admin: 11/22/18 09:20 Dose: 1 applic Vancomycin HCl (Vancocin (Oral/Rectal Use)) 250 mg PO Q6H [facility]; Protocol Last Admin: 11/22/18 05:16 Dose: 250 mg - Labs Labs: 11/17/18 05:55 11/21/18 05:10 PT 11.4 Seconds (9.8-13.1) 11/14/18 09:15 INR 1.0 11/14/18 09:15 APTT 30.1 Seconds (25.6-37.1) 11/14/18 09:15 - Constitutional Appears: Chronically Ill - Head Exam Head Exam: ATRAUMATIC, NORMAL INSPECTION, NORMOCEPHALIC - Eye Exam Eye Exam: EOMI, Normal appearance, PERRL Pupil Exam: NORMAL ACCOMODATION, PERRL - ENT Exam ENT Exam: Mucous Membranes Moist, Normal Exam - Neck Exam Neck Exam: Full ROM, Normal Inspection. absent: Lymphadenopathy - Respiratory Exam Respiratory Exam: Clear to Ausculation Bilateral, NORMAL BREATHING PATTERN - Cardiovascular Exam Cardiovascular Exam: REGULAR RHYTHM, +S1, +S2. absent: Murmur - GI/Abdominal Exam GI & Abdominal Exam: Soft, Normal Bowel Sounds. absent: Tenderness - Rectal Exam Rectal Exam: NORMAL INSPECTION - Extremities Exam Extremities Exam: Full ROM, Normal Capillary Refill, Tenderness. absent: Joint Swelling, Pedal Edema Additional comments: S/P SKIN GRAFT OF R LEG CHARCOT - Back Exam Back Exam: NORMAL INSPECTION - Neurological Exam Neurological Exam: Alert, Awake, CN II-XII Intact, Normal Gait, Oriented x3 - Psychiatric Exam Psychiatric exam: Normal Affect, Normal Mood - Skin Skin Exam: Dry, Intact, Normal Color, Warm Assessment and Plan - Assessment and Plan (Free Text) Assessment: HTN PYELONEPHRITIS RESOLVED DM CHARCOT FOOT DIABETIC FOOT ULCERS Plan: FOR POSSIBLE TRANSFER TO [facility]UTE CARE
--- NOTE | 2018-11-22 13:10 | CP.PCM.PN ---
Subjective - Date & Time of Evaluation Date of Evaluation: 11/22/18 Time of Evaluation: 13:07 - Subjective Subjective: Jus Wagoner, PGY-1, Cardiology Progress Note for Dr. Read Patient seen and evaluated at bedside. Patient had no acute overnight events. Patient reports improved drainage and tenderness of lower extremities today. Objective - Vital Signs/Intake and Output Vital Signs (last 24 hours): Temp Pulse Resp BP Pulse Ox 98.2 F 112 H 18 151/93 H 100 11/22/18 09:00 11/22/18 09:19 11/22/18 09:00 11/22/18 09:19 11/22/18 09:00 - Medications Medications: Current Medications Acetaminophen (Tylenol 325mg Tab) 650 mg PO Q4 PRN PRN Reason: Fever >100.4 F Last Admin: 11/20/18 02:56 Dose: 650 mg Acetaminophen (Tylenol 325mg Tab) 650 mg PO Q4 PRN PRN Reason: Headaches Last Admin: 11/20/18 15:00 Dose: 650 mg Al Hydrox/Mg Hydrox/Simethicone (Maalox Plus 30 Ml) 30 ml PO TID [facility] Last Admin: 11/22/18 09:19 Dose: 30 ml Amlodipine Besylate (Norvasc) 10 mg PO DAILY [facility] Last Admin: 11/22/18 09:19 Dose: 10 mg Clonidine HCl (Catapres) 0.3 mg PO TID [facility] Last Admin: 11/22/18 09:15 Dose: 0.3 mg Dextrose (Dextrose 50% Inj) 0 ml IV STAT PRN; Protocol PRN Reason: Hypoglycemia Protocol Last Admin: 11/20/18 11:46 Dose: 50 ml Dextrose (Glutose 15) 0 gm PO ONCE PRN; Protocol PRN Reason: Hypoglycemia Protocol Enalapril Maleate (Vasotec) 5 mg PO Q12 [facility] Last Admin: 11/22/18 09:21 Dose: 5 mg Glucagon (Glucagen Diagnostic Kit) 0 mg IM STAT PRN; Protocol PRN Reason: Hypoglycemia Protocol Heparin Sodium (Porcine) (Heparin) 5,000 units SC Q12 [facility]; Protocol Last Admin: 11/22/18 09:16 Dose: 5,000 units Vancomycin HCl 1 gm/ Sodium (Chloride) 250 mls @ 166.667 mls/hr IVPB Q24H [facility]; Protocol Last Admin: 11/21/18 17:02 Dose: 166.667 mls/hr Metronidazole (Flagyl 500mg/100ml Ns) 100 mls @ 100 mls/hr IVPB Q8@0600,1400,2200 [facility]; Protocol Last Admin: 11/22/18 09:14 Dose: 100 mls/hr Insulin Detemir (Levemir) 30 units SC HS [facility] Last Admin: 11/21/18 22:01 Dose: 30 units Insulin Human Lispro (Humalog) 0 units SC ACHS [facility]; Protocol Last Admin: 11/22/18 13:06 Dose: Not Given Metoclopramide HCl (Reglan) 10 mg IVP Q6 PRN PRN Reason: Nausea/Vomiting Last Admin: 11/21/18 21:50 Dose: 10 mg Metoprolol Tartrate (Lopressor) 100 mg PO BID [facility] Last Admin: 11/22/18 09:19 Dose: 100 mg Pantoprazole Sodium (Protonix Ec Tab) 40 mg PO BID [facility] Last Admin: 11/22/18 09:20 Dose: 40 mg Saccharomyces Boulardii (Florastor) 250 mg PO BID [facility] Last Admin: 11/22/18 09:16 Dose: 250 mg Silver Sulfadiazine (Silvadene 1% 20 Gm) 0 ea TOP DAILY [facility] Last Admin: 11/22/18 09:20 Dose: 1 applic Vancomycin HCl (Vancocin (Oral/Rectal Use)) 250 mg PO Q6H [facility]; Protocol Last Admin: 11/22/18 05:16 Dose: 250 mg - Labs Labs: 11/17/18 05:55 11/21/18 05:10 PT 11.4 Seconds (9.8-13.1) 11/14/18 09:15 INR 1.0 11/14/18 09:15 APTT 30.1 Seconds (25.6-37.1) 11/14/18 09:15 - Constitutional Appears: Well, Non-toxic, No Acute Distress - Head Exam Head Exam: ATRAUMATIC, NORMAL INSPECTION, NORMOCEPHALIC - Eye Exam Eye Exam: EOMI, Normal appearance, PERRL - ENT Exam ENT Exam: Mucous Membranes Moist - Respiratory Exam Respiratory Exam: Clear to Auscultation Bilateral, NORMAL BREATHING PATTERN - Cardiovascular Exam Cardiovascular Exam: REGULAR RHYTHM, RRR, +S1, +S2 - GI/Abdominal Exam GI & Abdominal Exam: Normal Bowel Sounds, Soft. absent: Tenderness - Extremities Exam Extremities exam: Positive for: full ROM - Neurological Exam Neurological exam: Alert, CN II-XII Intact, Oriented x3 - Skin Skin Exam: Dry, Intact Additional comments: bilateral lower extremity wounds Assessment and Plan (1) Diabetic foot ulcer Assessment & Plan: Patient has severe beebe on bilateral lower extremities. Arterial duplex: right lower extremity: right common femoral artery shows max flow of 61.9 cm/s. Right SFA shows max flow of 89.5 cm/s. Right popliteal artery shows max flow of 48.2 cm/s. Right posterior tibial artery shows max flow of 63.3 cm/s. Right DP shows max flow of 74.9 cm/s. left lower extremity: left common femoral shows max flow of 108.2 cm/s. left SFA shows max flow of 91.7 cm/s. left popliteal artery shows max flow of 41.2 cm/s. left posterior tibial artery shows max flow of 69.0 cm/s. Due to decrease of flow from right SFA to right popliteal and left SFA to left popliteal, would consider peripheral angiogram vs. waiting to see if wound heals for 6 weeks. As per patient, he would like to wait for 6 weeks to evaluate for healing. If wound does not heal appropriately, he would be agreeable for peripheral angiogram at that time. Will add aspirin and plavix and sign off at this time. Patient should follow up with Dr. Read outpatient within 2 weeks. Reconsult if patient has new or concerning symptoms. Status: Chronic (2) CKD (chronic kidney disease) Assessment & Plan: Avoid CESAR/ARB, nephrotoxins Status: Chronic (3) History of hypertension Assessment & Plan: Systolic Blood pressure in 150s to 160s Continue with norvasc, clonidine, enalapril, and lopressor. Status: Chronic (4) Uncontrolled type 1 diabetes mellitus Assessment & Plan: HgbA1c: 7.8 Continue with levemir and lispro. Consider increasing levemir Status: Chronic (5) Bacteremia Assessment & Plan: Strep bacteremia likely 2/2 to lower extremity wounds Continue with antibiotics Status: Acute
--- NOTE | 2018-11-22 14:13 | CP.PCM.PN ---
Subjective - Date & Time of Evaluation Date of Evaluation: 11/22/18 Time of Evaluation: 01:50 - Subjective Subjective: Appears comfortable. Sitting up eating lunch. Objective - Vital Signs/Intake and Output Vital Signs (last 24 hours): Temp Pulse Resp BP Pulse Ox 97.7 F 77 18 167/109 H 99 11/22/18 13:37 11/22/18 13:37 11/22/18 13:37 11/22/18 13:37 11/22/18 13:37 - Medications Medications: Current Medications Acetaminophen (Tylenol 325mg Tab) 650 mg PO Q4 PRN PRN Reason: Fever >100.4 F Last Admin: 11/20/18 02:56 Dose: 650 mg Acetaminophen (Tylenol 325mg Tab) 650 mg PO Q4 PRN PRN Reason: Headaches Last Admin: 11/20/18 15:00 Dose: 650 mg Al Hydrox/Mg Hydrox/Simethicone (Maalox Plus 30 Ml) 30 ml PO TID TATI Last Admin: 11/22/18 13:26 Dose: 30 ml Amlodipine Besylate (Norvasc) 10 mg PO DAILY [facility] Last Admin: 11/22/18 09:19 Dose: 10 mg Clonidine HCl (Catapres) 0.3 mg PO TID TATI Last Admin: 11/22/18 13:26 Dose: 0.3 mg Dextrose (Dextrose 50% Inj) 0 ml IV STAT PRN; Protocol PRN Reason: Hypoglycemia Protocol Last Admin: 11/20/18 11:46 Dose: 50 ml Dextrose (Glutose 15) 0 gm PO ONCE PRN; Protocol PRN Reason: Hypoglycemia Protocol Enalapril Maleate (Vasotec) 5 mg PO Q12 TATI Last Admin: 11/22/18 09:21 Dose: 5 mg Glucagon (Glucagen Diagnostic Kit) 0 mg IM STAT PRN; Protocol PRN Reason: Hypoglycemia Protocol Heparin Sodium (Porcine) (Heparin) 5,000 units SC Q12 TATI; Protocol Last Admin: 11/22/18 09:16 Dose: 5,000 units Vancomycin HCl 1 gm/ Sodium (Chloride) 250 mls @ 166.667 mls/hr IVPB Q24H TATI; Protocol Last Admin: 11/22/18 13:25 Dose: 166.667 mls/hr Metronidazole (Flagyl 500mg/100ml Ns) 100 mls @ 100 mls/hr IVPB Q8@0600,1400,2200 [facility]; Protocol Last Admin: 11/22/18 09:14 Dose: 100 mls/hr Insulin Detemir (Levemir) 30 units SC HS [facility] Last Admin: 11/21/18 22:01 Dose: 30 units Insulin Human Lispro (Humalog) 0 units SC ACHS [facility]; Protocol Last Admin: 11/22/18 13:06 Dose: Not Given Metoclopramide HCl (Reglan) 10 mg IVP Q6 PRN PRN Reason: Nausea/Vomiting Last Admin: 11/21/18 21:50 Dose: 10 mg Metoprolol Tartrate (Lopressor) 100 mg PO BID [facility] Last Admin: 11/22/18 09:19 Dose: 100 mg Pantoprazole Sodium (Protonix Ec Tab) 40 mg PO BID [facility] Last Admin: 11/22/18 09:20 Dose: 40 mg Saccharomyces Boulardii (Florastor) 250 mg PO BID [facility] Last Admin: 11/22/18 09:16 Dose: 250 mg Silver Sulfadiazine (Silvadene 1% 20 Gm) 0 ea TOP DAILY [facility] Last Admin: 11/22/18 09:20 Dose: 1 applic Vancomycin HCl (Vancocin (Oral/Rectal Use)) 250 mg PO Q6H [facility]; Protocol Last Admin: 11/22/18 10:30 Dose: 250 mg - Labs Labs: 11/17/18 05:55 11/21/18 05:10 PT 11.4 Seconds (9.8-13.1) 11/14/18 09:15 INR 1.0 11/14/18 09:15 APTT 30.1 Seconds (25.6-37.1) 11/14/18 09:15 - Head Exam Head Exam: ATRAUMATIC, NORMOCEPHALIC - Eye Exam Eye Exam: Normal appearance - ENT Exam ENT Exam: Mucous Membranes Moist - Neck Exam Neck Exam: Normal Inspection - Respiratory Exam Respiratory Exam: NORMAL BREATHING PATTERN Additional comments: Lungs clear. Good air entry B/L - Cardiovascular Exam Cardiovascular Exam: REGULAR RHYTHM - Extremities Exam Additional comments: Both legs wrapped Assessment and Plan - Assessment and Plan (Free Text) Assessment: Stage 111 kidney disease/Diabetic nephropathy Renal function remains stable. HTN improving Diabetic foot ulcers C.diff colitis Plan: Continue current meds Monitor renal function.
[2018-11-22 15:52] VITALS: RESP 20
--- NOTE | 2018-11-22 17:13 | CP.PCM.DIS ---
Provider - Provider Date of Admission: 11/11/18 10:13 Attending physician: Aden Wahl MD Consults: 11/10/18 09:35 Nephrology Consult Routine Comment: Consulting Provider: Mitch Jerome Consulting Physician: Mitch Jerome Reason for Consult: RENAL FAILURE 11/10/18 09:37 Podiatry Consult Routine Comment: Consulting Provider: Pablito Rosa Consulting Physician: Pablito Rosa Reason for Consult: PODIATRY CARE 11/10/18 09:39 Social Work Referral Routine Comment: DISPOSITION Physician Instructions: Reason For Exam: DISPOSITION 11/10/18 15:25 Infectious Disease Consult Routine Comment: Consulting Provider: Richard Morales Consulting Physician: Richard Morales Reason for Consult: b/l ulcerations 11/10/18 15:27 Physician Consult Routine Comment: Consulting Provider: Cornelius Read Consulting Physician: Cornelius Read Reason for Consult: b/l foot ulcerations 11/11/18 19:57 Wound Care [Nursing Referral for Wound Care] Routine Comment: Physician Instructions: Reason For Exam: right thigh burn Time Spent in preparation of Discharge (in minutes): 35 Diagnosis - Discharge Diagnosis (1) Diabetes 1.5, managed as type 2 Status: Acute (2) C. difficile colitis Status: Acute (3) Bacteremia Status: Acute (4) Pyelonephritis Status: Suspected Priority: Low (5) Abdominal pain Status: Acute (6) Abnormal kidney function Status: Acute (7) Anemia Status: Acute (8) Back pain Status: Acute (9) Cellulitis, leg Status: Acute (10) Homeless single person Status: Acute (11) Hypertension Status: Acute (12) PVD (peripheral vascular disease) Status: Acute (13) Uncontrolled diabetes mellitus Status: Acute (14) Charcot foot due to diabetes mellitus Status: Chronic (15) Diabetic foot ulcer Status: Chronic Hospital Course - Lab Results Lab Results: Micro Results 11/12/18 16:40 Blood-Venous Blood Culture - Final NO GROWTH AFTER 5 DAYS 11/12/18 16:40 Blood-Venous Gram Stain - Final TEST NOT PERFORMED 11/12/18 16:30 Blood-Venous Blood Culture - Final NO GROWTH AFTER 5 DAYS 11/12/18 16:30 Blood-Venous Gram Stain - Final TEST NOT PERFORMED 11/10/18 05:50 Blood-Venous S.aureus & Coag-Neg Staph PNA FISH - Final 11/10/18 05:50 Blood-Venous Blood Culture - Final Streptococcus Species 11/10/18 05:50 Blood-Venous Gram Stain - Final 11/10/18 05:50 Urine,Clean Catch Urine Culture - Final No Growth (<1,000 CFU/ML) Most Recent Lab Values WBC 6.1 K/uL (4.8-10.8) 11/17/18 05:55 RBC 3.30 Mil/uL (4.40-5.90) L 11/17/18 05:55 Hgb 8.9 g/dL (12.0-18.0) L 11/17/18 05:55 Hct 27.7 % (35.0-51.0) L 11/17/18 05:55 MCV 83.9 fl (80.0-94.0) 11/17/18 05:55 MCH 27.0 pg (27.0-31.0) 11/17/18 05:55 MCHC 32.1 g/dL (33.0-37.0) L 11/17/18 05:55 RDW 15.5 % (11.5-14.5) H 11/17/18 05:55 Plt Count 202 K/uL (130-400) 11/17/18 05:55 MPV 8.2 fl (7.2-11.7) 11/14/18 06:45 Neut % (Auto) 59.0 % (50.0-75.0) 11/14/18 06:45 Lymph % (Auto) 28.3 % (20.0-40.0) 11/14/18 06:45 [place] % (Auto) 8.2 % (0.0-10.0) 11/14/18 06:45 Eos % (Auto) 3.5 % (0.0-4.0) 11/14/18 06:45 Baso % (Auto) 1.0 % (0.0-2.0) 11/14/18 06:45 Neut # (Auto) 2.9 K/uL (1.8-7.0) 11/14/18 06:45 Lymph # (Auto) 1.4 K/uL (1.0-4.3) 11/14/18 06:45 [place] # (Auto) 0.4 K/uL (0.0-0.8) 11/14/18 06:45 Eos # (Auto) 0.2 K/uL (0.0-0.7) 11/14/18 06:45 Baso # (Auto) 0.1 K/uL (0.0-0.2) 11/14/18 06:45 PT 11.4 Seconds (9.8-13.1) 11/14/18 09:15 INR 1.0 11/14/18 09:15 APTT 30.1 Seconds (25.6-37.1) 11/14/18 09:15 pO2 46 mm/Hg (30-55) 11/10/18 05:50 VBG pH 7.34 (7.32-7.43) 11/10/18 05:50 VBG pCO2 46 mmHg (40-60) 11/10/18 05:50 VBG HCO3 23.4 mmol/L 11/10/18 05:50 VBG Total CO2 26.2 mmol/L (22-28) 11/10/18 05:50 VBG O2 Sat (Calc) 88.8 % (40-65) H 11/10/18 05:50 VBG Base Excess -1.3 mmol/L (0.0-2.0) L 11/10/18 05:50 VBG Potassium 3.6 mmol/L (3.6-5.2) 11/10/18 05:50 Sodium 138.0 mmol/L (132-148) 11/10/18 05:50 Chloride 109.0 mmol/L (98-107) H 11/10/18 05:50 Glucose 115 mg/dL (75-110) H 11/10/18 05:50 Lactate 0.7 mmol/L (0.7-2.1) 11/10/18 05:50 FiO2 21.0 % 11/10/18 05:50 Sodium 133 mmol/l (132-148) 11/21/18 05:10 Potassium 3.9 MMOL/L (3.6-5.0) 11/21/18 05:10 Chloride 104 mmol/L (98-107) 11/21/18 05:10 Carbon Dioxide 25 mmol/L (22-30) 11/21/18 05:10 Anion Gap 8 (10-20) L 11/21/18 05:10 BUN 15 mg/dl (9-20) 11/21/18 05:10 Creatinine 1.9 mg/dl (0.8-1.5) H 11/21/18 05:10 Est GFR ( Amer) 52 11/21/18 05:10 Est GFR (Non-Af Amer) 43 11/21/18 05:10 POC Glucose (mg/dL) 180 mg/dL (65-110) H 11/22/18 15:46 Random Glucose 360 mg/dL (75-110) H 11/21/18 05:10 Hemoglobin A1c 7.8 % (4.2-6.5) H D 11/14/18 06:45 Calcium 8.4 mg/dL (8.4-10.2) 11/21/18 05:10 Phosphorus 4.3 mg/dl (2.5-4.5) 11/10/18 13:06 Total Bilirubin 0.1 mg/dl (0.2-1.3) L 11/17/18 05:55 AST 43 U/L (17-59) 11/17/18 05:55 ALT 42 U/L (21-72) 11/17/18 05:55 Alkaline Phosphatase 91 U/L (38-126) 11/17/18 05:55 Total Protein 5.5 G/DL (6.3-8.2) L 11/17/18 05:55 Albumin 2.3 g/dL (3.5-5.0) L 11/17/18 05:55 Globulin 3.2 gm/dL (2.2-3.9) 11/17/18 05:55 Albumin/Globulin Ratio 0.7 (1.0-2.1) L 11/17/18 05:55 Lipase 38 U/L (23-300) 11/10/18 04:20 PTH Intact Whole Molec 46 pg/mL (14-64) 11/10/18 13:57 Venous Blood Potassium 3.6 mmol/L (3.6-5.2) 11/10/18 05:50 Urine Color Yellow (YELLOW) 11/10/18 02:04 Urine Clarity Cloudy (Clear) 11/10/18 02:04 Urine pH 6.0 (5.0-8.0) 11/10/18 02:04 Ur Specific [place] 1.018 (1.003-1.030) 11/10/18 02:04 Urine Protein >=500 mg/dL (NEGATIVE) 11/10/18 02:04 Urine Glucose (UA) >=500 mg/dL (NEGATIVE) 11/10/18 02:04 Urine Ketones Negative mg/dL (NEGATIVE) 11/10/18 02:04 Urine Blood Small (NEGATIVE) 11/10/18 02:04 Urine Nitrate Negative (NEGATIVE) 11/10/18 02:04 Urine Bilirubin Negative (NEGATIVE) 11/10/18 02:04 Urine Urobilinogen 0.2-1.0 mg/dL (0.2-1.0) 11/10/18 02:04 Ur Leukocyte Esterase Neg [place]/uL (Negative) 11/10/18 02:04 Urine RBC (Auto) 15 /hpf (0-3) H 11/10/18 02:04 Urine Microscopic WBC 3 /hpf (0-5) 11/10/18 02:04 Ur Squamous Epith Cells 1 /hpf (0-5) 11/10/18 02:04 Hyaline Casts >20 /hpf (0-2) H 11/10/18 02:04 Ur Random Creatinine 56.5 mg/dL 11/11/18 05:22 U Random Total Protein 430 mg/L 11/11/18 05:22 Vancomycin Trough 13.3 ug/mL (5.0-10.0) H 11/21/18 12:00 C. difficile Ag & Toxin Positive antigen (NEGATIVE) 11/22/18 11:28 - Hospital Course Hospital Course: BACK PAINS AND DIARRHEA RESOLVED SKIN GRAFT OF R LEG/FOOT AND DEBRIDEMENT OF L FOOT/LEG WOUND BP AND DIABETES CONTROLLED ON MEDS Discharge Exam - Head Exam Head Exam: ATRAUMATIC, NORMOCEPHALIC Discharge Plan - Discharge Medications Prescriptions: metroNIDAZOLE 500mg/100ml NS [Flagyl 500MG/100ML NS] 500 mg IVPB Q8 #42 bag Vancomycin 1 GM [Vancomycin 1GM in Normal Saline Addvantage] 1 gm IVPB DAILY #14 bag - Follow Up Plan Condition: FAIR Disposition: REHAB FACILITY/REHAB UNIT Instructions: Diabetes Exchange Diet, High Blood Pressure (DC), Diabetes Diet , Urinary Tract Infection in Men (DC) Additional Instructions: follow up with primary MD 1 week TRANSFER TO SUBACUTE CARE CONTINUE PODIATRY CARE AND IV ANTIBIOTIC THERAPY Referrals: [facility] [Outside] Mitch Jerome MD [Staff Provider] - Pablito Rosa DPM [Staff Provider] - Cornelius Read MD [Staff Provider] - Richard Morales MD [Staff Provider] -
[2018-11-22 19:59] VITALS: BP 140/90; PULSE 78; TEMP 98.9; O2SAT 99
--- NOTE | 2018-11-23 06:52 | PQF ---
PROVIDER RESPONSE TEXT: The depth of the debridement was down to good bleeding subcutaneous tissue. REVIEWER QUERY TEXT: Procedure Clarification Query created by: Misty Thomas on 11/22/2018 10:00 AM Electronically signed by: Vera Miranda 11/23/2018 6:49 AM
== END 2018-11-22 21:06 | DRG 581 ==
LOC: H.ER 23:53 → H.ERHOLD 11-10 05:19 → H.MEDSURG1 11-10 08:54 → OBSVTOIN 11-11 10:13 → INTOOBSV 11-11 10:13 → H.MEDSURG1 11-12 20:34 → H.TEL 11-18 22:56
PROVIDERS: ADMIT Internal Medicine Pulmonary Disease; ATTEND Internal Medicine Pulmonary Disease
PROC: 3E0T3BZ Introduction of Anesthetic Agent into Peripheral Nerves and Plexi, Percutaneous Approach (ICD-10-PCS; 2018-11-15)
PROC: 0JBN0ZZ Excision of Right Lower Leg Subcutaneous Tissue and Fascia, Open Approach (ICD-10-PCS; principal; 2018-11-15 11:00)
PROC: 0HBKXZZ Excision of Right Lower Leg Skin, External Approach (ICD-10-PCS; 2018-11-15 11:00)
PROC: 0HRKX73 Replacement of Right Lower Leg Skin with Autologous Tissue Substitute, Full Thickness, External Approach (ICD-10-PCS; 2018-11-18)
PROC: 02HV33Z Insertion of Infusion Device into Superior Vena Cava, Percutaneous Approach (ICD-10-PCS; 2018-11-21)
DX: A40.9 Streptococcal sepsis, unspecified (principal); N17.9 Acute kidney failure, unspecified; N10 Acute pyelonephritis; E10.21 Type 1 diabetes mellitus with diabetic nephropathy; E10.40 Type 1 diabetes mellitus with diabetic neuropathy, unspecified; L97.919 Non-pressure chronic ulcer of unspecified part of right lower leg with unspecified severity; E10.22 Type 1 diabetes mellitus with diabetic chronic kidney disease; E10.621 Type 1 diabetes mellitus with foot ulcer; A04.72 Enterocolitis due to Clostridium difficile, not specified as recurrent; N18.4 Chronic kidney disease, stage 4 (severe); E10.649 Type 1 diabetes mellitus with hypoglycemia without coma; E10.610 Type 1 diabetes mellitus with diabetic neuropathic arthropathy; E10.51 Type 1 diabetes mellitus with diabetic peripheral angiopathy without gangrene; L03.119 Cellulitis of unspecified part of limb; L97.929 Non-pressure chronic ulcer of unspecified part of left lower leg with unspecified severity; E10.65 Type 1 diabetes mellitus with hyperglycemia; I12.9 Hypertensive chronic kidney disease with stage 1 through stage 4 chronic kidney disease, or unspecified chronic kidney disease; D63.8 Anemia in other chronic diseases classified elsewhere; T24.001A Burn of unspecified degree of unspecified site of right lower limb, except ankle and foot, initial encounter; Z59.0 Homelessness; F17.210 Nicotine dependence, cigarettes, uncomplicated; F12.90 Cannabis use, unspecified, uncomplicated; K29.70 Gastritis, unspecified, without bleeding